=== PATIENT | female | born 1945 | race Two or more races ===

== ENCOUNTER → 2023-06-27 | Outpatient (CLI) | payer MEDICARE ==
[2023-06-27 12:08] LABS: Basophils # (auto) 0 10 ^3/uL (0-0.2); Basophils % (auto) 0.4 % (0.0-2.0); Eosinophils # (auto) 0.1 10 ^3/uL (0-0.8); Eosinophils % (auto) 0.7 % (0.0-7.0); Hemoglobin 14.4 g/dL (12.2-16.2); Lymphocytes # (auto) 2.3 10 ^3/uL (0.4-5.4); Lymphocytes % (auto) 29.8 % (10.0-50.0); Mean Corpuscular Hemoglobin 30.6 pg (28.0-32.0); Mean Corpuscular Volume 95.3 fL (80.0-100.0); Monocytes # (auto) 0.6 10 ^3/uL (0-1.3); Monocytes % (auto) 7.8 % (0.0-12.0); Neutrophils # (auto) 4.6 10 ^3/uL (1.6-8.6); Neutrophils % (auto) 61.3 % (37.0-80.0); Nucleated Red Blood Cells % 0.1 %; Red Blood Cells 4.72 10^6/uL (4.0-5.20); Red Cell Distribution Width 17.9 % (11.8-14.3); White Blood Cell 7.6 10^3/uL (4.4-10.8)
[2023-06-27 12:19] LABS: Alanine Aminotransferase 17 U/L (7-40); Alkaline Phosphatase 87 U/L (46-116); Anion Gap 7 (5-15); Aspartate Aminotransferase 18 U/L (13-40); BUN/Creatinine Ratio 11.1 (10.0-20.0); Blood Urea Nitrogen 9 mg/dL (9-23); Calcium 9.4 mg/dL (8.5-10.1); Carbon Dioxide 27 mmol/L (20-30); Chloride 108 mmol/L (98-107); Glucose 86 mg/dL (74-106); Potassium 3.6 mmol/L (3.5-5.1); Sodium 142 mmol/L (136-145)
[2023-06-27 12:20] LABS: Albumin 4.1 g/dL (3.2-4.8); Bilirubin, Total 0.8 mg/dL (0.2-1.0); Total Protein 6.6 g/dL (5.7-8.2)
[2023-06-27 12:24] LABS: Urine Bacteria FEW /hpf (None Seen); Urine Blood 1+ /uL (Negative); Urine Clarity HAZY (Clear); Urine Color Yellow (Yellow); Urine Mucus FEW (None Seen); Urine Protein, UAD TRACE (Negative); Urine Specific Gravity 1.022 (1.001-1.035); Urine Urobilinogen Normal (Negative); Urine WBC 170 /hpf (0 - 5); Urine pH 5.5 (5.0-8.0)
== END | disposition home or self-care (01) ==
LOC: LAB 11:46
DX: R05.1 Acute cough (principal); N39.0 Urinary tract infection, site not specified
CPT/HCPCS: 36415; 80053; 81001; 85025; 87086

== ENCOUNTER → 2023-06-28 | Outpatient (CLI) | payer MEDICARE, MEDICAID ==
[~2023-06-28] MED LIST: ENOXAPARIN SOD 30 MG/0.3 ML SYRINGE ONE; ENOXAPARIN SOD 30 MG/0.3 ML SYRINGE SC ONE; FUROSEMIDE 40 MG/4 ML VIAL IV ONE; FUROSEMIDE 40 MG/4 ML VIAL ONE; POTASSIUM CHL 10 Meq TABLET PO ONE; POTASSIUM CHL 20 Meq TABLET PO ONE
[2023-06-28 12:00] VITALS: BP 162/88; PULSE 74; RESP 20; O2SAT 99
[2023-06-28 12:30] VITALS: BP 160/100; PULSE 80; RESP 20; O2SAT 99
== END | disposition home or self-care (01) ==
LOC: CHF HDHVI 11:48
PROVIDERS: ATTEND Internal Medicine Cardiovascular Disease
DX: I50.9 Heart failure, unspecified (principal); R60.9 Edema, unspecified
CPT/HCPCS: 96372; 96374; G0463

== ENCOUNTER → 2023-07-10 | Outpatient (CLI) | payer MEDICARE, MEDICAID ==
[2023-07-10 14:21] LABS: Basophils # (auto) 0 10 ^3/uL (0-0.2); Basophils % (auto) 0.4 % (0.0-2.0); Eosinophils # (auto) 0 10 ^3/uL (0-0.8); Eosinophils % (auto) 0.7 % (0.0-7.0); Hematocrit 45.9 % (36.0-46.0); Hemoglobin 14.5 g/dL (12.2-16.2); Lymphocytes % (auto) 27.6 % (10.0-50.0); Mean Corpuscular Hemoglobin 30.6 pg (28.0-32.0); Mean Corpuscular Hgb Conc. 31.7 g/dL (32.0-36.0); Mean Corpuscular Volume 96.6 fL (80.0-100.0); Monocytes # (auto) 0.6 10 ^3/uL (0-1.3); Monocytes % (auto) 7.9 % (0.0-12.0); Neutrophils # (auto) 4.6 10 ^3/uL (1.6-8.6); Neutrophils % (auto) 63.4 % (37.0-80.0); Nucleated Red Blood Cells % 0.2 %; Red Blood Cells 4.75 10^6/uL (4.0-5.20); Red Cell Distribution Width 17.6 % (11.8-14.3); White Blood Cell 7.2 10^3/uL (4.4-10.8)
[2023-07-10 14:42] LABS: Chloride 108 mmol/L (98-107); Potassium 4.2 mmol/L (3.5-5.1); Sodium 142 mmol/L (136-145)
[2023-07-10 14:43] LABS: Anion Gap 6 (5-15); Calcium 9.4 mg/dL (8.5-10.1); Carbon Dioxide 28 mmol/L (20-30)
[2023-07-10 14:48] LABS: BUN/Creatinine Ratio 12.7 (10.0-20.0); Blood Urea Nitrogen 13 mg/dL (9-23); Glucose 156 mg/dL (74-106)
== END | disposition home or self-care (01) ==
LOC: LAB 13:58
PROVIDERS: ATTEND Internal Medicine Cardiovascular Disease
DX: E11.9 Type 2 diabetes mellitus without complications (principal); D64.9 Anemia, unspecified
CPT/HCPCS: 36415; 80048; 83036; 85025

== ENCOUNTER → 2023-07-12 | Outpatient (CLI) | payer MEDICARE, MEDICAID | END | disposition home or self-care (01) | LOC: Rad HDHVI 13:30 | PROVIDERS: ATTEND Internal Medicine Cardiovascular Disease | DX: I08.0 Rheumatic disorders of both mitral and aortic valves (principal); I11.9 Hypertensive heart disease without heart failure; R06.02 Shortness of breath | CPT/HCPCS: 93306 ==

== ENCOUNTER → 2023-09-25 | Outpatient (CLI) | payer MEDICARE, MEDICAID ==
[2023-09-25 12:02] LABS: Creatinine, Urine 211.84 mg/dL (30.0-125.0)
[2023-09-25 12:07] LABS: Alanine Aminotransferase 12 U/L (7-40); Alkaline Phosphatase 134 U/L (46-116); Anion Gap 7 (5-15); BUN/Creatinine Ratio 13.3 (10.0-20.0); Blood Urea Nitrogen 12 mg/dL (9-23); Calcium 9.5 mg/dL (8.5-10.1); Carbon Dioxide 30 mmol/L (20-30); Chloride 105 mmol/L (98-107); Glucose 115 mg/dL (74-106); LDL Cholesterol 90 mg/dL (< 100); Potassium 3.5 mmol/L (3.5-5.1); Sodium 142 mmol/L (136-145); Triglycerides 114 mg/dL (< 150)
[2023-09-25 12:08] LABS: Albumin 4.2 g/dL (3.2-4.8); Aspartate Aminotransferase 11 U/L (13-40); Bilirubin, Direct 0.2 mg/dL (<0.3); Cholesterol 168 mg/dL (< 200); HDL Cholesterol 57 mg/dL (40-59)
[2023-09-25 12:17] LABS: Bilirubin, Total 0.6 mg/dL (0.2-1.0)
[2023-09-25 15:22] LABS: Urine Blood Negative /uL (Negative); Urine Clarity Clear (Clear); Urine Color Yellow (Yellow); Urine Protein, UAD TRACE (Negative); Urine Specific Gravity 1.027 (1.001-1.035); Urine Urobilinogen Normal (Negative); Urine pH 5.5 (5.0-9.0)
== END | disposition home or self-care (01) ==
LOC: LAB 10:42
PROVIDERS: ATTEND Internal Medicine Cardiovascular Disease
DX: I10 Essential (primary) hypertension (principal); E11.40 Type 2 diabetes mellitus with diabetic neuropathy, unspecified; D51.3 Other dietary vitamin B12 deficiency anemia; E55.9 Vitamin D deficiency, unspecified
CPT/HCPCS: 36415; 80048; 80061; 80076; 81003; 82043; 82570; 83036; 84439; 84443

== ENCOUNTER → 2024-01-09 | Outpatient (CLI) | payer MEDICARE, MEDICAID ==
[2024-01-09 11:23] LABS: Basophils # (auto) 0 10 ^3/uL (0-0.2); Basophils % (auto) 0.8 % (0.0-2.0); Eosinophils # (auto) 0.1 10 ^3/uL (0-0.8); Eosinophils % (auto) 1.6 % (0.0-7.0); Hematocrit 44.9 % (36.0-46.0); Hemoglobin 14.8 g/dL (12.2-16.2); Lymphocytes # (auto) 1.3 10 ^3/uL (0.4-5.4); Mean Corpuscular Hemoglobin 32.4 pg (28.0-32.0); Mean Corpuscular Volume 98.2 fL (80.0-100.0); Monocytes # (auto) 0.4 10 ^3/uL (0-1.3); Monocytes % (auto) 9.8 % (0.0-12.0); Neutrophils # (auto) 2.2 10 ^3/uL (1.6-8.6); Neutrophils % (auto) 54.8 % (37.0-80.0); Nucleated Red Blood Cells % 0.1 %; Red Blood Cells 4.57 10^6/uL (4.0-5.20); Red Cell Distribution Width 15.6 % (11.8-14.3); White Blood Cell 4.1 10^3/uL (4.4-10.8)
[2024-01-09 11:50] LABS: Urine Bacteria FEW /hpf (None Seen); Urine Blood TRACE /uL (Negative); Urine Clarity Turbid (Clear); Urine Color Yellow (Yellow); Urine Mucus FEW (None Seen); Urine Protein, UAD TRACE (Negative); Urine Specific Gravity 1.028 (1.001-1.035); Urine Urobilinogen Normal (Negative); Urine WBC 26 /hpf (0 - 5); Urine pH 5.5 (5.0-9.0)
[2024-01-09 12:23] LABS: Alkaline Phosphatase 148 U/L (46-116); Anion Gap 5 (5-15); Aspartate Aminotransferase 14 U/L (13-40); BUN/Creatinine Ratio 9.1 (10.0-20.0); Bilirubin, Direct 0.1 mg/dL (<0.3); Blood Urea Nitrogen 8 mg/dL (9-23); Calcium 9.8 mg/dL (8.7-10.4); Carbon Dioxide 29 mmol/L (20-30); Chloride 110 mmol/L (98-107); Cholesterol 164 mg/dL (< 200); Glucose 104 mg/dL (74-106); HDL Cholesterol 47 mg/dL (40-59); LDL Cholesterol 91 mg/dL (< 100); Potassium 4.7 mmol/L (3.5-5.1); Sodium 144 mmol/L (136-145); Triglycerides 119 mg/dL (< 150)
[2024-01-09 12:24] LABS: Bilirubin, Total 0.5 mg/dL (0.2-1.0); Total Protein 6.7 g/dL (5.7-8.2)
[2024-01-09 12:28] LABS: Alanine Aminotransferase < 9 U/L (7-40)
== END | disposition home or self-care (01) ==
LOC: LAB 10:54
PROVIDERS: ATTEND Internal Medicine Cardiovascular Disease
DX: I10 Essential (primary) hypertension (principal); E11.9 Type 2 diabetes mellitus without complications; D51.3 Other dietary vitamin B12 deficiency anemia; E55.9 Vitamin D deficiency, unspecified; R00.2 Palpitations; R53.1 Weakness
CPT/HCPCS: 36415; 80048; 80061; 80076; 81001; 83036; 84443; 85025

== ENCOUNTER → 2024-02-22 | Outpatient (CLI) | payer MEDICARE, MEDICAID ==
[~2024-02-22] MED LIST changes: +ATOR-507 PO; +CARV25TA55 PO; +CLOP75TA28 PO; +EMPA1TAB3 PO; -ENOXAPARIN SOD 30 MG/0.3 ML SYRINGE ONE; -ENOXAPARIN SOD 30 MG/0.3 ML SYRINGE SC ONE; +FURO40TA4 PO; -FUROSEMIDE 40 MG/4 ML VIAL IV ONE; -FUROSEMIDE 40 MG/4 ML VIAL ONE; +GABA-1250 PO; +HYDR-4795 PO; +INSU1INJ19 SC; +METF-370 PO; +METO25TA93 PO; +NIFE1TAB30 PO; +PANT40TA2 PO; +POTA-220 PO; -POTASSIUM CHL 10 Meq TABLET PO ONE; -POTASSIUM CHL 20 Meq TABLET PO ONE; +PRED20TA2 PO; +PRIM50TA5 PO; +TRAZ-227 PO
== END | disposition home or self-care (01) ==
LOC: Rad HDHVI 10:40
PROVIDERS: ATTEND Internal Medicine Cardiovascular Disease
DX: R51.9 Headache, unspecified (principal)
CPT/HCPCS: 70450

== ENCOUNTER → 2024-03-05 | Outpatient (CLI) | payer MEDICARE, MEDICAID | END | disposition home or self-care (01) | LOC: Rad HDHVI 12:50 | PROVIDERS: ATTEND Internal Medicine Cardiovascular Disease | DX: I08.0 Rheumatic disorders of both mitral and aortic valves (principal); I10 Essential (primary) hypertension; R42 Dizziness and giddiness | CPT/HCPCS: 93306 ==

== ENCOUNTER 2024-03-11 13:29 | Inpatient (IN) | payer MEDICARE, MEDICAID ==
[~2024-03-11] VITALS: Ht 165.1 cm; Wt 82.1 kg
[2024-03-11] MEDS: SODIUM CHLORIDE 0.9% 500 ML IVB ONE (14:45)
[2024-03-11 14:59] LABS: Urine Bacteria None Seen /hpf (None Seen)
[2024-03-11 15:23] LABS: Urine Blood Negative /uL (Negative); Urine Clarity Clear (Clear); Urine Color Light-Yellow (Yellow); Urine Protein, UAD Negative (Negative); Urine Specific Gravity 1.019 (1.001-1.035); Urine Urobilinogen Normal (Negative); Urine WBC 2 /hpf (0 - 5)
[2024-03-11 15:28] LABS: Basophils # (auto) 0 10 ^3/uL (0-0.2); Basophils % (auto) 0.2 % (0.0-2.0); Eosinophils # (auto) 0 10 ^3/uL (0-0.8); Eosinophils % (auto) 0.2 % (0.0-7.0); Hematocrit 47.4 % (36.0-46.0); Hemoglobin 15.3 g/dL (12.2-16.2); Lymphocytes # (auto) 0.6 10 ^3/uL (0.4-5.4); Lymphocytes % (auto) 3.3 % (10.0-50.0); Mean Corpuscular Hemoglobin 31.7 pg (28.0-32.0); Mean Corpuscular Hgb Conc. 32.3 g/dL (32.0-36.0); Mean Corpuscular Volume 98.2 fL (80.0-100.0); Monocytes # (auto) 0.9 10 ^3/uL (0-1.3); Monocytes % (auto) 4.9 % (0.0-12.0); Neutrophils # (auto) 17.3 10 ^3/uL (1.6-8.6); Neutrophils % (auto) 91.4 % (37.0-80.0); Nucleated Red Blood Cells % 0.1 %; Platelet Count (auto) 274 10^3/uL (140-450); Red Blood Cells 4.83 10^6/uL (4.0-5.20); Red Cell Distribution Width 15.8 % (11.8-14.3); White Blood Cell 18.9 10^3/uL (4.4-10.8)
[2024-03-11 16:09] LABS: INR 1.03 (0.9-1.15); Partial Thromboplastin Time 32.1 SEC (24.5-34.5); Prothrombin Time 10.9 sec (9.3-11.8)
[2024-03-11] MEDS: MECLIZINE HCL 25 MG TAB PO ONE (16:10)
[2024-03-11] MEDS: ACETAMINOPHEN/CODEINE#3 (300/30mg) TAB PO ONE (16:11)
[2024-03-11] MEDS: SODIUM CHLORIDE 0.9% 1,000 ML IV ONE (16:12)
[2024-03-11 16:13] VITALS: PULSE 74; RESP 16; O2SAT 95
[2024-03-11 16:33] LABS: Alanine Aminotransferase 11 U/L (7-40); Albumin 4.1 g/dL (3.2-4.8); Alkaline Phosphatase 144 U/L (46-116); Anion Gap 10 (5-15); Aspartate Aminotransferase 13 U/L (13-40); Blood Urea Nitrogen 12 mg/dL (9-23); Calcium 9.4 mg/dL (8.7-10.4); Carbon Dioxide 22 mmol/L (20-31); Chloride 112 mmol/L (98-107); Glucose 158 mg/dL (74-106); Lipase 22 U/L (12-53); Magnesium 1.8 mg/dL (1.6-2.6); Sodium 144 mmol/L (136-145)
[2024-03-11 16:34] LABS: Bilirubin, Total 0.5 mg/dL (0.2-1.0); Total Protein 6.7 g/dL (5.7-8.2)
[2024-03-11] MEDS ORDERED: ACETAMINOPHEN 325 MG TAB PO PRN (17:30)
[2024-03-11] MEDS ORDERED: DEXTROSE (50%) 50ML SYRG IV PRN (17:30)
[2024-03-11] MEDS ORDERED: MECLIZINE HCL 25 MG TAB PO PRN (17:30)
[2024-03-11] MEDS ORDERED: ONDANSETRON HCL 4 MG/2 ML VIAL IV PRN (17:30)
[2024-03-11] MEDS ORDERED: MORPHINE SULFATE INJ 2 MG/ml SYRG IV PRN (18:15)
[2024-03-11] MEDS: GABAPENTIN 300 MG CAP PO SCH (22:26)
[2024-03-11] MEDS: CARVEDILOL 12.5 MG TAB PO SCH (22:26)
[2024-03-11] MEDS: ATORVASTATIN 20 MG TAB PO SCH (22:27)
[2024-03-11] MEDS: ACCU-CHEK COMFORT CURVE STRIP VI SCH (22:27)
[2024-03-11] MEDS: FAMOTIDINE (10MG/ML) 2ML VL IV SCH (22:27)
[2024-03-11] MEDS: InsuLIN REG 1unit/0.01ml Soln (100units/ml) SC SCH (22:39)
[2024-03-12] VITALS (8 sets, daily range): BP systolic 121–143; BP diastolic 52–80; PULSE 56–68; RESP 16–20; TEMP 97.7–98.6; O2SAT 90–95
[2024-03-12] MEDS: HYDROcodone-ACET 5/325MG TAB PO PRN (00:18)
[2024-03-12 06:23] LABS: Basophils # (auto) 0 10 ^3/uL (0-0.2); Basophils % (auto) 0.2 % (0.0-2.0); Eosinophils # (auto) 0.2 10 ^3/uL (0-0.8); Eosinophils % (auto) 1.5 % (0.0-7.0); Hematocrit 43.6 % (36.0-46.0); Hemoglobin 14.3 g/dL (12.2-16.2); Lymphocytes # (auto) 2.2 10 ^3/uL (0.4-5.4); Lymphocytes % (auto) 14.8 % (10.0-50.0); Mean Corpuscular Hemoglobin 32.3 pg (28.0-32.0); Mean Corpuscular Hgb Conc. 32.9 g/dL (32.0-36.0); Monocytes # (auto) 0.8 10 ^3/uL (0-1.3); Monocytes % (auto) 5.6 % (0.0-12.0); Neutrophils # (auto) 11.8 10 ^3/uL (1.6-8.6); Neutrophils % (auto) 77.9 % (37.0-80.0); Nucleated Red Blood Cells % 0.1 %; Platelet Count (auto) 241 10^3/uL (140-450); Red Blood Cells 4.44 10^6/uL (4.0-5.20); Red Cell Distribution Width 15.8 % (11.8-14.3); White Blood Cell 15.1 10^3/uL (4.4-10.8)
[2024-03-12 06:36] LABS: Albumin 3.8 g/dL (3.2-4.8); Alkaline Phosphatase 114 U/L (46-116); Anion Gap 8 (5-15); Aspartate Aminotransferase 8 U/L (13-40); BUN/Creatinine Ratio 10.6 (10.0-20.0); Bilirubin, Total 0.5 mg/dL (0.2-1.0); Blood Urea Nitrogen 10 mg/dL (9-23); Calcium 9.4 mg/dL (8.7-10.4); Carbon Dioxide 26 mmol/L (20-31); Chloride 111 mmol/L (98-107); Glucose 97 mg/dL (74-106); Potassium 3.6 mmol/L (3.5-5.1); Sodium 145 mmol/L (136-145); Total Protein 6.4 g/dL (5.7-8.2)
[2024-03-12 06:45] LABS: Alanine Aminotransferase < 9 U/L (7-40)
[2024-03-12] MEDS: CLOPIDOGREL BISULFATE 75 MG TAB PO SCH (08:30)
[2024-03-12] MEDS: traZODone HCL 50 MG TAB PO SCH (21:44)
[2024-03-13] VITALS (8 sets, daily range): BP systolic 118–156; BP diastolic 57–73; PULSE 49–62; RESP 15–19; TEMP 97.7–98.9; O2SAT 90–96
[2024-03-13] MEDS: levoFLOXacin 500MG 100 ML IV SCH (10:37)
[2024-03-13 11:32] LABS: Basophils # (auto) 0 10 ^3/uL (0-0.2); Basophils % (auto) 0.5 % (0.0-2.0); Eosinophils # (auto) 0.2 10 ^3/uL (0-0.8); Eosinophils % (auto) 3.6 % (0.0-7.0); Hematocrit 40.3 % (36.0-46.0); Lymphocytes # (auto) 1.5 10 ^3/uL (0.4-5.4); Lymphocytes % (auto) 25.3 % (10.0-50.0); Mean Corpuscular Hemoglobin 31.5 pg (28.0-32.0); Mean Corpuscular Hgb Conc. 32.2 g/dL (32.0-36.0); Mean Corpuscular Volume 97.6 fL (80.0-100.0); Monocytes # (auto) 0.6 10 ^3/uL (0-1.3); Monocytes % (auto) 9.4 % (0.0-12.0); Neutrophils # (auto) 3.7 10 ^3/uL (1.6-8.6); Neutrophils % (auto) 61.2 % (37.0-80.0); Nucleated Red Blood Cells % 0.6 %; Platelet Count (auto) 181 10^3/uL (140-450); Red Blood Cells 4.13 10^6/uL (4.0-5.20); Red Cell Distribution Width 15.8 % (11.8-14.3)
[2024-03-13 15:00] LABS: Chloride 107 mmol/L (98-107); Potassium 3.9 mmol/L (3.5-5.1); Sodium 142 mmol/L (136-145)
[2024-03-13 15:01] LABS: Anion Gap 6 (5-15); Calcium 9.5 mg/dL (8.7-10.4); Carbon Dioxide 29 mmol/L (20-31)
[2024-03-13 15:06] LABS: BUN/Creatinine Ratio 12.8 (10.0-20.0); Blood Urea Nitrogen 12 mg/dL (9-23); Glucose 150 mg/dL (74-106)
[2024-03-13] MEDS: VANCOMYCIN 1GM/200ML PREMIX 250 ML IV ONE ×2 (15:17→15:26)
[2024-03-14] VITALS (7 sets, daily range): BP systolic 106–151; BP diastolic 30–79; PULSE 49–89; RESP 15–19; TEMP 97.8–98.5; O2SAT 91–97
[2024-03-14] MEDS: DOCUSATE SOD 100 MG CAP PO PRN (09:52)
[2024-03-15] VITALS (7 sets, daily range): BP systolic 128–160; BP diastolic 63–83; PULSE 59–80; RESP 16–18; TEMP 97.6–98.5; O2SAT 92–98
[2024-03-15] MEDS: hydrALAZINE HCL 20 MG/ML VL IV PRN (09:59)
[2024-03-16] VITALS (8 sets, daily range): BP systolic 113–158; BP diastolic 47–71; PULSE 54–95; RESP 15–18; TEMP 97.6–98.2; O2SAT 93–99
[2024-03-16] MEDS: NITROGLYCERIN 0.4 MG SL TAB SL PRN (00:59)
[2024-03-17] VITALS (11 sets, daily range): BP systolic 136–156; BP diastolic 57–89; PULSE 55–86; RESP 17–20; TEMP 97.5–98.7; O2SAT 94–98
[2024-03-18 01:00] VITALS: BP 145/60; PULSE 67; RESP 17; TEMP 97.6; O2SAT 97
[2024-03-18 05:00] VITALS: BP 111/68; PULSE 68; RESP 20; TEMP 97.5; O2SAT 94
[2024-03-18 07:41] VITALS: PULSE 76
[2024-03-18 08:10] VITALS: BP 138/69; PULSE 67; RESP 18; TEMP 97.4; O2SAT 94
[2024-03-18 12:53] LABS: Hepatitis B Surface Antigen Negative (Negative)
[2024-03-18 13:14] LABS: Hepatitis C Antibody Negative (Negative)
[2024-03-18 14:44] VITALS: BP 157/69; PULSE 60; RESP 18; TEMP 98.9; O2SAT 98
[2024-03-18 15:03] VITALS: BP 146/76; PULSE 71; RESP 16
== END 2024-03-18 15:14 | disposition home or self-care (01) | DRG 310 ==
LOC: ER 13:29 → EDBD 13:29 → TELE 18:14 → TELE-WESTW 18:14
PROVIDERS: ADMIT Internal Medicine Geriatric Medicine; ATTEND Internal Medicine Cardiovascular Disease
DX: R00.1 Bradycardia, unspecified (principal); I25.10 Atherosclerotic heart disease of native coronary artery without angina pectoris; D72.829 Elevated white blood cell count, unspecified; E11.9 Type 2 diabetes mellitus without complications; E78.5 Hyperlipidemia, unspecified; I11.0 Hypertensive heart disease with heart failure; I50.9 Heart failure, unspecified; J44.9 Chronic obstructive pulmonary disease, unspecified; Z86.73 Personal history of transient ischemic attack (TIA), and cerebral infarction without residual deficits; Z98.61 Coronary angioplasty status; Z88.6 Allergy status to analgesic agent; Z88.0 Allergy status to penicillin
CPT/HCPCS: 36415; 70450; 71045; 71046; 80048; 80053; 81001; 82962; 83036; 83690; 83735; 84484; 85025; 85610; 85730; 86803; 87040; 87077; 87340; 93005; 93886; G0378; J1815; J1956; J3490

== ENCOUNTER → 2024-03-20 | Outpatient (CLI) | payer MEDICARE, MEDICAID ==
[~2024-03-20] MED LIST changes: -PRED20TA2 PO; -PRIM50TA5 PO
== END | disposition home or self-care (01) ==
LOC: Rad HDHVI 15:17
PROVIDERS: ATTEND Internal Medicine Cardiovascular Disease
DX: R06.02 Shortness of breath (principal); I51.7 Cardiomegaly
CPT/HCPCS: 71046

== ENCOUNTER → 2024-03-22 | Outpatient (CLI) | payer MEDICARE, MEDICAID ==
[2024-03-22 13:34] LABS: Basophils # (auto) 0 10 ^3/uL (0-0.2); Basophils % (auto) 0.8 % (0.0-2.0); Eosinophils # (auto) 0.1 10 ^3/uL (0-0.8); Eosinophils % (auto) 2.1 % (0.0-7.0); Hemoglobin 14.6 g/dL (12.2-16.2); Lymphocytes # (auto) 1.5 10 ^3/uL (0.4-5.4); Lymphocytes % (auto) 30.4 % (10.0-50.0); Mean Corpuscular Hemoglobin 31.6 pg (28.0-32.0); Mean Corpuscular Hgb Conc. 32.4 g/dL (32.0-36.0); Mean Corpuscular Volume 97.5 fL (80.0-100.0); Monocytes # (auto) 0.3 10 ^3/uL (0-1.3); Neutrophils % (auto) 59.7 % (37.0-80.0); Nucleated Red Blood Cells % 0.2 %; Platelet Count (auto) 261 10^3/uL (140-450); Red Blood Cells 4.61 10^6/uL (4.0-5.20); White Blood Cell 4.9 10^3/uL (4.4-10.8)
[2024-03-22 13:58] LABS: Chloride 111 mmol/L (98-107); Potassium 4.1 mmol/L (3.5-5.1); Sodium 144 mmol/L (136-145)
[2024-03-22 13:59] LABS: Anion Gap 7 (5-15); Carbon Dioxide 26 mmol/L (20-31)
[2024-03-22 14:00] LABS: Calcium 9.3 mg/dL (8.7-10.4)
[2024-03-22 14:04] LABS: BUN/Creatinine Ratio 17.8 (10.0-20.0); Blood Urea Nitrogen 16 mg/dL (9-23); Glucose 137 mg/dL (74-106)
== END | disposition home or self-care (01) ==
LOC: LAB 13:15
PROVIDERS: ATTEND Internal Medicine Cardiovascular Disease
DX: I10 Essential (primary) hypertension (principal); D64.9 Anemia, unspecified
CPT/HCPCS: 36415; 80048; 85025

== ENCOUNTER → 2024-06-11 | Outpatient (CLI) | payer MEDICARE, MEDICAID ==
[2024-06-11 10:10] LABS: Urine Bacteria None Seen /hpf (None Seen)
[2024-06-11 10:32] LABS: Basophils # (auto) 0 10 ^3/uL (0-0.2); Basophils % (auto) 0.4 % (0.0-2.0); Eosinophils # (auto) 0 10 ^3/uL (0-0.8); Eosinophils % (auto) 0.3 % (0.0-7.0); Hematocrit 47.8 % (36.0-46.0); Hemoglobin 15.6 g/dL (12.2-16.2); Lymphocytes % (auto) 23.5 % (10.0-50.0); Mean Corpuscular Hgb Conc. 32.7 g/dL (32.0-36.0); Mean Corpuscular Volume 97.8 fL (80.0-100.0); Monocytes # (auto) 0.5 10 ^3/uL (0-1.3); Neutrophils % (auto) 69.8 % (37.0-80.0); Nucleated Red Blood Cells % 0.1 %; Platelet Count (auto) 239 10^3/uL (140-450); Red Blood Cells 4.89 10^6/uL (4.0-5.20); Red Cell Distribution Width 15.9 % (11.8-14.3); White Blood Cell 8.6 10^3/uL (4.4-10.8)
[2024-06-11 10:52] LABS: Creatinine, Urine 153.3 mg/dL (30.0-125.0)
[2024-06-11 10:58] LABS: Alanine Aminotransferase 12 U/L (7-40); Albumin 4.2 g/dL (3.2-4.8); Anion Gap 7 (5-15); BUN/Creatinine Ratio 16.5 (10.0-20.0); Bilirubin, Total 0.6 mg/dL (0.2-1.0); Blood Urea Nitrogen 15 mg/dL (9-23); Calcium 10.2 mg/dL (8.7-10.4); Carbon Dioxide 30 mmol/L (20-31); Chloride 106 mmol/L (98-107); Glucose 101 mg/dL (74-106); Potassium 3.9 mmol/L (3.5-5.1); Sodium 143 mmol/L (136-145); Total Protein 7.1 g/dL (5.7-8.2); Triglycerides 119 mg/dL (< 150)
[2024-06-11 11:00] LABS: Alkaline Phosphatase 165 U/L (46-116); Aspartate Aminotransferase < 8 U/L (13-40); Cholesterol 243 mg/dL (< 200); HDL Cholesterol 76 mg/dL (40-59); LDL Cholesterol 157 mg/dL (< 100)
[2024-06-11 12:33] LABS: Urine Blood Negative /uL (Negative); Urine Clarity Clear (Clear); Urine Color Yellow (Yellow); Urine Mucus FEW (None Seen); Urine Protein, UAD Negative (Negative); Urine Specific Gravity 1.033 (1.001-1.035); Urine Squamous Epithelial Cell FEW /hpf (<5); Urine Urobilinogen Normal (Negative); Urine WBC 4 /hpf (0 - 5); Urine pH 5.5 (5.0-9.0)
== END | disposition home or self-care (01) ==
LOC: LAB 09:47
DX: N39.0 Urinary tract infection, site not specified (principal); E11.65 Type 2 diabetes mellitus with hyperglycemia; I10 Essential (primary) hypertension; B27.90 Infectious mononucleosis, unspecified without complication; E03.9 Hypothyroidism, unspecified; E78.5 Hyperlipidemia, unspecified; R82.79 Other abnormal findings on microbiological examination of urine; Z20.828 Contact with and (suspected) exposure to other viral communicable diseases
CPT/HCPCS: 36415; 80053; 80061; 81001; 82043; 82570; 83036; 84443; 85025; 87086

== ENCOUNTER 2024-07-25 08:06 | Emergency (ER) | payer OTHER, MEDICAID ==
[~2024-07-25] VITALS: Ht 165.1 cm; Wt 82.6 kg
[2024-07-25 08:49] VITALS: BP 131/71; PULSE 64; RESP 18; TEMP 98; O2SAT 96
--- NOTE | 2024-07-25 09:07 | ED.PDOC ---
Musculoskeletal HPI Comments A 79 YEAR OLD FEMALE PRESENTS TO THE ED WITH CHIEF COMPLAINT OF TOE PAIN. PATIENT REPORTS THAT SHE HAS BEEN EXPERIENCING A LEFT GREAT TOE INGROWN TOE NAIL THAT SHE HAS ATTEMPTED TO TAKE OUT ON HER OWN. PATIENT RELAYS THAT SHE WAS UNSUCCESSFUL AND NOW HAS 9/10 PAIN TO THE TOE. PATIENT DENIES ANY DISCHARGE, BLEEDING, NUMBNESS, OR WEAKNESS AT THIS TIME. NO OTHER SYMPTOMS REPORTED AT THIS TIME OF CARE. Chief Complaint: Lower Extremity Time Seen by MD: 09:05 Primary Care Provider: LACHELLE Reviewed Notes: Nurses Notes, Medications, Allergies Allergies: Coded Allergies: Aspirin (Verified Allergy, Unknown, 02/12/22) Penicillins (Verified Allergy, Unknown, 02/12/22) Home Meds Active Scripts Cephalexin Monohydrate (Cephalexin) 500 Mg Cap, 1 CAP PO QID, #40 CAP Prov:MARISA MARRERO 07/25/24 Reported Medications Gabapentin (Gabapentin) 300 Mg Cap, 1 CAP PO TID for 60 Days, #180 02/15/24 Metformin Hydrochloride (Metformin Hcl) 500 Mg Tab, 1 TAB PO BID for 90 Days, #180 02/15/24 Insulin Glargine (Basaglar Kwikpen) 100 Unit/Ml Inj, 15 UNIT SC DAILY for 70 Days, #12 02/15/24 Trazodone Hcl (Trazodone Hcl) 50 Mg Tab, 1 TAB PO DAILY for 30 Days, #30 02/15/24 Hydrocodone-Acetaminophen (Hydrocodone Bitartrate/AC 7.5-325 mg) 1 Tab Tab, 1 TAB PO Q8HR for 30 Days, #90 02/15/24 Furosemide (Furosemide) 40 Mg Tab, 1 TAB PO DAILY for 90 Days, #90 02/15/24 Metoprolol Succinate (Metoprolol Succinate Er) 25 Mg Tab, 1 TAB PO DAILY for 60 Days, #30 02/15/24 Atorvastatin Calcium (Lipitor) 40 Mg Tab, 1 TAB PO DAILY, #30 TAB 5 Refills 02/14/24 Empagliflozin (Jardiance) 25 Mg Tab, 25 MG PO DAILY, TAB 02/14/24 Pantoprazole Sodium Sesquihydr (Protonix) 40 Mg Tab, 40 MG PO DAILY, #30 TAB 02/14/24 Potassium Chloride (Klor-Con M20) 20 Meq Tab, 20 MEQ PO DAILY, TAB 02/14/24 Carvedilol (Carvedilol) 25 Mg Tab, 25 MG PO BID, TAB 02/14/24 Clopidogrel Bisulfate (Plavix) 75 Mg Tab, 75 MG PO DAILY, TAB 02/14/24 Nifedipine (Nifedipine Er) 60 Mg Tab, 60 MG PO DAILY, TAB 02/14/24 Information Source: Patient, Relative Mode of Arrival: Ambulatory Location: Left Extremity Location: Great Toe Timing: Days Prehospital treatment: None Severity: Moderate Able to Move Extremity: Yes Bear Weight: Fully Pain: Mild Hand Dominance: Right Onset of Symptoms: Spontaneous Symptoms: Pain, Erythema DVT Risk Factors: NONE Last Tetanus: UTD Associated signs and symptoms: None Past Medical History PAST MEDICAL HISTORY: Arthritis, TIA Surgical History: 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 History: Denies all ADJUNCT PSYCHOLOGY PROFESSOR Hx Family History Family History: Reviewed,noncontributory to illness Social History Smoker: Non-Smoker Alcohol: Denies ETOH Use Drugs: Denies Drug Use Lives In: Home Constitutional: denies: chills, diaphoresis, fatigue, fever, malaise, sweats, weakness, others EENTM: denies: blurred vision, double vision, ear bleeding, ear discharge, ear drainage, ear pain, ear ringing, eye pain, eye redness, hearing loss, mouth pain, mouth swelling, nasal discharge, nose bleeding, nose congestion, nose pain, photophobia, tearing, throat pain, throat swelling, voice changes, others Respiratory: denies: cough, hemoptysis, orthopnea, SOB at rest, shortness of breath, SOB with excertion, stridor, wheezing, others Cardiovascular: denies: chest pain, dizzy spells, diaphoresis, Dyspnea on exertion, edema, irregular heart beat, left arm pain, lightheadedness, palpitations, PND, syncope, others Gastrointestinal: denies: abdomen distended, abdominal pain, blood streaked bowels, constipated, diarrhea, dysphagia, difficulty swallowing, hematemesis, melena, nausea, poor appetite, poor fluid intake, rectal bleeding, rectal pain, vomiting, others Genitourinary: denies: abnormal vagina bleeding, burning, dyspareunia, dysuria, flank pain, frequency, hematuria, incontinence, pain, , vagina discharge, urgency, others Neurological: denies: dizziness, fainting, headache, left sided numbness, left sided weakness, numbness, paresthesia, pre-existing deficit, right sided n umbness, right sided weakness, seizure, speech problems, tingling, tremors, weakness, others Musculoskeletal: reports: joint pain; denies: back pain, gout, joint swelling, muscle pain, muscle stiffness, neck pain, others Integumetry: reports: others (INGROWN LEFT GREAT TOE NAIL); denies: bruises, change in color, change in hair/nails, dryness, laceration, lesions, lumps, rash, wounds Allergic/Immunocompromised: denies: Difficulty Healing, Frequent Infections, Hives, Itching, others Hematologic/Lymphatic: denies: anemia, blood clots, easy bleeding, easy bruising, swollen glands, others Endocrine: denies: excessive hunger, excessive sweating, excessive thirst, excessive urination, flushing, intolerance to cold, intolerance to heat, unex plained weight gain, unexplained weight loss, others Psychiatric: denies: anxiety, bipolar disorder, depression, hopeless, panic disorder, schizophrenia, sleepless, suicidal, others All Other Systems: Reviewed and Negative Physical Exam General Appearance: No Apparent Distress, Normal HEENT: Normal ENT Inspection, PERRL/EOMI Neck: Full Range of Motion, Non-Tender, Normal, Normal Inspection Respiratory: Chest Non-Tender, Lungs Clear, No Accessory Muscle Use, No Respiratory Distress, Normal Breath Sounds Cardiovascular: No Edema, No JVD, No Murmur, No Gallop, Normal Peripheral Pulses, Regular Rate/Rhythm Breast Exam: Deferred Gastrointestinal: No Organomegaly, Non Tender, No Pulsatile Mass, Normal Bowel Sounds, Soft Genitalia: Deferred Pelvic: Deferred Rectal: Deferred Extremities: No calf tenderness, Normal capillary refill, Normal range of mo tion, No pedal edema, Tender (WITH MILD REDNESS AND SWELLING ON LEFT GREAT TOE REGION, NO BONY TENDERNESS AND DEFORMITY. ) Musculoskeletal : Apperance: Normal Neurologic: Alert, front desk worker II-XII nml as Tested, No Motor Deficits, Normal Affect, Normal Mood, No Sensory Deficits Cerebellar Function: Normal Reflexes: Normal Skin: Dry, Normal Color, Warm, Other (LOCALIZED REDNESS, SWELLING AND TENDERNESS ON LEFT GREAT TOE, INGROWN TOENAIL, NO OPEN WOUND SEEN. ) Peripheral Pulses: 2+ carotid (R), 2+ carotid (L), 2+ femoral (L), 2+ dorsalis pedis (R) Lymphatic: No Adenopathy Was a procedure done? Was a procedure done?: No Differential Diagnosis EXT Differential Diagnosis: Contusion, Strain, Bursitis, Other (INGROWN TOENAIL OF LEFT GREAT TOE. ) X-Ray, Labs, Meds, VS Vital Signs Date Time Temp Pulse Resp B/P (MAP) Pulse Ox O2 Delivery O2 Flow Rate FiO2 07/25/24 08:49 98.0 64 18 131/71 (91) 96 98.0 07/25/24 08:49 64 18 96 Room Air 07/25/24 08:28 98.0 64 18 131/71 (91) 96 X-Ray, Labs, Meds, VS Comment EXTERNAL MEDICAL RECORDS REVIEWED: 03/11/24 FOR DIZZINESS INDEPENDENT HISTORIANS: [NONE] SOCIAL DETERMINANTS OF HEALTH: [NONE] LABS ORDERED: NONE REVIEWED AND INTERPRETED RESULTS: NONE IMAGING ORDERED: NONE TREATMENTS ORDERED: NONE PROCEDURES PERFORMED: NONE CRITICAL CARE TIME: NONE I HAVE DISCUSSED THE PATIENT WITH THE ATTENDING PHYSICIAN DR. RITTER AND HE AGREES WITH THE PATIENT'S PLAN OF CARE AND DISPOSITION. BASED ON HISTORY OF PRESENT ILLNESS, AND PHYSICAL EXAM, PATIENT WILL BE DISCHARGED HOME. DISCUSSED PLAN FOR DISCHARGE HOME WITH RX. MEDICATION WARNINGS GIVEN. SHARED DECISION MAKING: DISCUSSED WITH PATIENT THAT THEIR WORKUP WAS NORMAL. PATIENT INSTRUCTED TO FOLLOW UP WITH PRIMARY CARE PROVIDER IN 1-2 DAYS FOR RE- EVALUATION OF SYMPTOMS. PATIENT VERBALIZES UNDERSTANDING TO RETURN TO ED FOR NEW OR WORSENING SYMPTOMS OR IF FOLLOW UP WITH PCP CANNOT BE OBTAINED. PATIENT FEELS COMFORTABLE GOING HOME AT THIS TIME. ALL QUESTIONS ADDRESSED AT TIME OF DISCHARGE. Time of 1ST Reevaluation: 09:30 Reevaluation 1ST: Improved Patient Education/Counseling: Diagnosis, Treatment, Need For Follow Up Family Education/Counseling: Diagnosis, Treatment, No Family Present Medical Screening: No EMC Exist At This Time Departure 1 Departure Time of Disposition: 09:30 Impression: Primary Impression: Ingrown left greater toenail Disposition: 01 HOME / SELF CARE / HOMELESS Condition: Stable Additional Instructions: FOLLOW-UP WITH PCP IN 1 TO 2 DAYS. TAKE MEDICATIONS PRESCRIBED. RETURN TO ED FOR ANY NEW OR WORSENING SYMPTOMS. e-Prescriptions Cephalexin Monohydrate (Cephalexin) 500 Mg Cap 1 CAP PO QID, #40 CAP Prov: MARISA MARRERO 07/25/24 Discharged With: Self Critical Care Note Critical Care Time?: No Stability Stability form required: No Heart Score Heart Score: Heart Score Response (Comments) Value History N/A 0 EKG N/A 0 Age N/A 0 Risk Factors N/A 0 Troponin N/A 0 Total 0 I personally scribed for MARISA MARRERO ([email or web address]) on 07/25/24 at 09:07. Electronically submitted by Harvey Hewitt ([email or web address]). MARISA MARRERO Jul 25, 2024 09:07
[2024-07-25] MEDS ORDERED: CEPH500C PO (09:12)
== END 2024-07-25 09:30 | disposition home or self-care (01) ==
LOC: ER 08:06
DX: L60.0 Ingrowing nail (principal); Z86.73 Personal history of transient ischemic attack (TIA), and cerebral infarction without residual deficits; Z79.02 Long term (current) use of antithrombotics/antiplatelets; Z79.84 Long term (current) use of oral hypoglycemic drugs; Z79.899 Other long term (current) drug therapy; Z88.0 Allergy status to penicillin; Z88.6 Allergy status to analgesic agent

== ENCOUNTER 2024-08-06 08:38 | Emergency (ER) | payer OTHER, MEDICAID ==
[~2024-08-06] VITALS: Ht 162.6 cm; Wt 83.5 kg
[~2024-08-06 08:38] MED LIST changes: +CEPH500C PO
[2024-08-06 09:44] VITALS: BP 141/74; TEMP 98
[2024-08-06 10:25] VITALS: PULSE 67; RESP 18; O2SAT 96
--- NOTE | 2024-08-06 10:29 | DVH ---
CLINICAL INDICATION: great toe pain TECHNIQUE: 3 radiographic views of the left foot were obtained. Comparison: None FINDINGS/IMPRESSION: There is no evidence of acute fracture or dislocation. The visualized joint space is well maintained. The alignment is anatomical. There is no radiopaque foreign body.
[2024-08-06] MEDS ORDERED: ACET500T58 PO (10:46)
[2024-08-06] MEDS ORDERED: CLIN1CAP70 PO (10:46)
[2024-08-06] MEDS ORDERED: IBUP1TAB4 PO (10:46)
--- NOTE | 2024-08-06 10:46 | ED.PDOC ---
Musculoskeletal HPI Comments This is a 79-year-old female with a history of diabetes that presents with a chief complaint of an ingrown toenail to the left foot. Patient was seen July 25 for the same complaint and was discharged with the Keflex as minimal improvement. Patient reports she has a podiatry appointment scheduled for August 23 but is worried about worsening symptoms Able to ambulate without assistive devices. Denies any drainage from the aff ected side. Denies fevers chills nausea vomiting diarrhea Chief Complaint: Lower Extremity Time Seen by MD: 09:26 Primary Care Provider: LACHELLE Reviewed Notes: Nurses Notes, Medications, Allergies Allergies: Coded Allergies: Aspirin (Verified Allergy, Unknown, 02/12/22) Penicillins (Verified Allergy, Unknown, 02/12/22) Home Meds Active Scripts Clindamycin Hcl (Clindamycin Hcl) 300 Mg Cap, 1 CAP PO TID for 7 Days, #21 CAP 0 Refills Prov:SILVINO DE LEÓN LOAN DOCUMENTATION SPECIALIST 08/06/24 Ibuprofen Micronized (Ibuprofen) 400 Mg Tab, 400 MG PO Q8HP PRN for 10 Days, #30 TAB 0 Refills Prov:SILVINO DE LEÓN LOAN DOCUMENTATION SPECIALIST 08/06/24 Acetaminophen (Acetaminophen) 500 Mg Tab, 500 MG PO Q8HP PRN for 10 Days, #30 TAB 0 Refills Prov:SILVINO DE LEÓN LOAN DOCUMENTATION SPECIALIST 08/06/24 Cephalexin Monohydrate (Cephalexin) 500 Mg Cap, 1 CAP PO QID, #40 CAP Prov:MARISA MARRERO 07/25/24 Reported Medications Gabapentin (Gabapentin) 300 Mg Cap, 1 CAP PO TID for 60 Days, #180 02/15/24 Metformin Hydrochloride (Metformin Hcl) 500 Mg Tab, 1 TAB PO BID for 90 Days, #180 02/15/24 Insulin Glargine (Basaglar Kwikpen) 100 Unit/Ml Inj, 15 UNIT SC DAILY for 70 Days, #12 02/15/24 Trazodone Hcl (Trazodone Hcl) 50 Mg Tab, 1 TAB PO DAILY for 30 Days, #30 02/15/24 Hydrocodone-Acetaminophen (Hydrocodone Bitartrate/AC 7.5-325 mg) 1 Tab Tab, 1 TAB PO Q8HR for 30 Days, #90 02/15/24 Furosemide (Furosemide) 40 Mg Tab, 1 TAB PO DAILY for 90 Days, #90 02/15/24 Metoprolol Succinate (Metoprolol Succinate Er) 25 Mg Tab, 1 TAB PO DAILY for 60 Days, #30 02/15/24 Atorvastatin Calcium (Lipitor) 40 Mg Tab, 1 TAB PO DAILY, #30 TAB 5 Refills 02/14/24 Empagliflozin (Jardiance) 25 Mg Tab, 25 MG PO DAILY, TAB 02/14/24 Pantoprazole Sodium Sesquihydr (Protonix) 40 Mg Tab, 40 MG PO DAILY, #30 TAB 02/14/24 Potassium Chloride (Klor-Con M20) 20 Meq Tab, 20 MEQ PO DAILY, TAB 02/14/24 Carvedilol (Carvedilol) 25 Mg Tab, 25 MG PO BID, TAB 02/14/24 Clopidogrel Bisulfate (Plavix) 75 Mg Tab, 75 MG PO DAILY, TAB 02/14/24 Nifedipine (Nifedipine Er) 60 Mg Tab, 60 MG PO DAILY, TAB 02/14/24 Information Source: Patient Mode of Arrival: Ambulatory Past Medical History PAST MEDICAL HISTORY: Arthritis, TIA Surgical History: 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: Denies all QUANTITATIVE ANALYST MARKETING Hx Family History Family History: Reviewed,noncontributory to illness Social History Smoker: Non-Smoker Alcohol: Denies ETOH Use Drugs: Denies Drug Use Lives In: Home All Other Systems: Reviewed and Negative (Per HPI) Physical Exam General Appearance: No Apparent Distress, Normal HEENT: Normal ENT Inspection, Pharynx Normal, TMs Normal Neck: Full Range of Motion, Non-Tender, Normal, Normal Inspection Respiratory: Chest Non-Tender, Lungs Clear, No Accessory Muscle Use, No Respiratory Distress, Normal Breath Sounds Cardiovascular: No Edema, No JVD, No Murmur, No Gallop, Normal Peripheral Pulses, Regular Rate/Rhythm Breast Exam: Deferred Gastrointestinal: No Organomegaly, Non Tender, No Pulsatile Mass, Normal Bowel Sounds, Soft Genitalia: Deferred Pelvic: Deferred Rectal: Deferred Extremities: No calf tenderness, Normal capillary refill, Normal inspection, Normal range of motion, Non-tender, No pedal edema Musculoskeletal : Location: Left Extremity Location: Great Toe (Swelling to the lateral aspect of the nail bed. Tender to palpation. No discharge drainage open wound. No bony tenderness to palpation. Full ROM. 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 Was a procedure done?: No Differential Diagnosis EXT Differential Diagnosis: Other X-Ray, Labs, Meds, VS Vital Signs Date Time Temp Pulse Resp B/P (MAP) Pulse Ox O2 Delivery O2 Flow Rate FiO2 08/06/24 10:25 67 18 96 Room Air 08/06/24 09:44 98.0 57 20 141/74 (96) 100 98.0 08/06/24 08:50 97.4 64 18 195/78 (117) 96 X-Ray, Labs, Meds, VS Comment Patient understands potential risks including pain, infection, swelling, recurrence, more surgery, limitied shoes, disability, nail dystrophy. Declined toenail removal and requested antibiotics. Reports she has a a ppointment with Podiatry and will follow up if symptoms worsen Time of 1ST Reevaluation: 10:30 Reevaluation 1ST: Improved Patient Education/Counseling: Diagnosis, Treatment Family Education/Counseling: Diagnosis, Treatment Departure 1 Departure Time of Disposition: 10:45 Impression: Primary Impression: Ingrown left greater toenail Disposition: 01 HOME / SELF CARE / HOMELESS Condition: Fair e-Prescriptions Clindamycin Hcl (Clindamycin Hcl) 300 Mg Cap 1 CAP PO TID for 7 Days, #21 CAP 0 Refills Prov: SILVINO DE LEÓN NP 08/06/24 Ibuprofen Micronized (Ibuprofen) 400 Mg Tab 400 MG PO Q8HP PRN for 10 Days, #30 TAB 0 Refills Prov: SILVINO DE LEÓN NP 08/06/24 Acetaminophen (Acetaminophen) 500 Mg Tab 500 MG PO Q8HP PRN for 10 Days, #30 TAB 0 Refills Prov: SILVINO DE LEÓN LOAN DOCUMENTATION SPECIALIST 08/06/24 Critical Care Note Critical Care Time?: No Stability Stability form required: No Heart Score Heart Score: Heart Score Response (Comments) Value History N/A 0 EKG N/A 0 Age N/A 0 Risk Factors N/A 0 Troponin N/A 0 Total 0 SILVINO DE LEÓN NP Aug 06, 2024 10:46
== END 2024-08-06 10:51 | disposition home or self-care (01) ==
LOC: ER 08:38
DX: L60.0 Ingrowing nail (principal); M19.90 Unspecified osteoarthritis, unspecified site; Z79.84 Long term (current) use of oral hypoglycemic drugs; Z79.899 Other long term (current) drug therapy; Z86.73 Personal history of transient ischemic attack (TIA), and cerebral infarction without residual deficits; Z98.890 Other specified postprocedural states; Z88.0 Allergy status to penicillin; Z88.6 Allergy status to analgesic agent
CPT/HCPCS: 73630

== ENCOUNTER 2024-10-26 08:05 | Inpatient (IN) | payer OTHER, MEDICAID ==
[~2024-10-26] VITALS: Ht 162.6 cm
[~2024-10-26 08:05] MED LIST changes: +ACET500T58 PO; +CLIN1CAP70 PO; +IBUP1TAB4 PO
--- NOTE | 2024-10-26 11:01 | ED.PDOC ---
History of Present Illness(SKN HPI Comments 79-year-old female presents to the ER with prior medical history of arthritis, TIA, diabetes, osteoarthritis; surgical history of PTCA and it chief complaint of a wound check. Patient reports on having a diabetic ulcer on left lateral foot with severe pain. Patient reports that she was a [facility] for the past month for the treatment of the ulcer. Patient notes the the foot is red and warm and even the left big toe toenail fell off. Denies chills, fever, N/V/D, SOB, CP. No other associated symptoms, modifiers, recent injuries or sick contacts present at this time. Chief Complaint: Wound Check Time Seen by MD: 10:10 Primary Care Provider: LACHELLE History of Present Illness: Nurses Notes, Medications, Allergies Allergies: Coded Allergies: Aspirin (Verified Allergy, Unknown, 02/12/22) Penicillins (Verified Allergy, Unknown, 02/12/22) Home Meds Active Scripts Clindamycin Hcl (Clindamycin Hcl) 300 Mg Cap, 1 CAP PO TID for 7 Days, #21 CAP 0 Refills Prov:SILVINO DE LEÓN BLACK TOP RAKER 08/06/24 Ibuprofen Micronized (Ibuprofen) 400 Mg Tab, 400 MG PO Q8HP PRN for 10 Days, #30 TAB 0 Refills Prov:SILVINO DE LEÓN BLACK TOP RAKER 08/06/24 Acetaminophen (Acetaminophen) 500 Mg Tab, 500 MG PO Q8HP PRN for 10 Days, #30 TAB 0 Refills Prov:SILVINO DE LEÓN BLACK TOP RAKER 08/06/24 Cephalexin Monohydrate (Cephalexin) 500 Mg Cap, 1 CAP PO QID, #40 CAP Prov:MARISA MARRERO 07/25/24 Reported Medications Gabapentin (Gabapentin) 300 Mg Cap, 1 CAP PO TID for 60 Days, #180 02/15/24 Metformin Hydrochloride (Metformin Hcl) 500 Mg Tab, 1 TAB PO BID for 90 Days, #180 02/15/24 Insulin Glargine (Basaglar Kwikpen) 100 Unit/Ml Inj, 15 UNIT SC DAILY for 70 Days, #12 02/15/24 Trazodone Hcl (Trazodone Hcl) 50 Mg Tab, 1 TAB PO DAILY for 30 Days, #30 02/15/24 Hydrocodone-Acetaminophen (Hydrocodone Bitartrate/AC 7.5-325 mg) 1 Tab Tab, 1 TAB PO Q8HR for 30 Days, #90 02/15/24 Furosemide (Furosemide) 40 Mg Tab, 1 TAB PO DAILY for 90 Days, #90 02/15/24 Metoprolol Succinate (Metoprolol Succinate Er) 25 Mg Tab, 1 TAB PO DAILY for 60 Days, #30 02/15/24 Atorvastatin Calcium (Lipitor) 40 Mg Tab, 1 TAB PO DAILY, #30 TAB 5 Refills 02/14/24 Empagliflozin (Jardiance) 25 Mg Tab, 25 MG PO DAILY, TAB 02/14/24 Pantoprazole Sodium Sesquihydr (Protonix) 40 Mg Tab, 40 MG PO DAILY, #30 TAB 02/14/24 Potassium Chloride (Klor-Con M20) 20 Meq Tab, 20 MEQ PO DAILY, TAB 02/14/24 Carvedilol (Carvedilol) 25 Mg Tab, 25 MG PO BID, TAB 02/14/24 Clopidogrel Bisulfate (Plavix) 75 Mg Tab, 75 MG PO DAILY, TAB 02/14/24 Nifedipine (Nifedipine Er) 60 Mg Tab, 60 MG PO DAILY, TAB 02/14/24 Information Source: Patient Mode of Arrival: Ambulatory Severity: Moderate Timing: Weeks Duration: Since onset Prehospital treatment: None Location: Foot (Left) Mechanism: Preceding Wound (Diabetic wound) Object: None Condition of Object: None Retained Foreign Body: No Wound Type: Unknown (Diabetic ulcer) Immunization Status of Animal: Unknown Tetanus: Unknown History of: Diabetes Associated Signs and Symptoms: Redness, Other (Warm to touch) Past Medical History PAST MEDICAL HISTORY: Arthritis, DM, TIA Past Medical History (Other): osteoarthritis Surgical History: PTCA CRAFT COORDINATOR History: Denies all CRAFT COORDINATOR Hx Family History Family History: Reviewed,noncontributory to illness, Unknown Social History Smoker: Non-Smoker Alcohol: Denies ETOH Use Drugs: Denies Drug Use Lives In: Home Constitutional: denies: chills, diaphoresis, fatigue, fever, malaise, sweats, weakness, others EENTM: denies: blurred vision, double vision, ear bleeding, ear discharge, ear drainage, ear pain, ear ringing, eye pain, eye redness, hearing loss, mouth pain, mouth swelling, nasal discharge, nose bleeding, nose congestion, nose pain, photophobia, tearing, throat pain, throat swelling, voice changes, others Respiratory: denies: cough, hemoptysis, orthopnea, SOB at rest, shortness of breath, SOB with excertion, stridor, wheezing, others Cardiovascular: denies: chest pain, dizzy spells, diaphoresis, Dyspnea on exertion, edema, irregular heart beat, left arm pain, lightheadedness, palpi tations, PND, syncope, others Gastrointestinal: denies: abdomen distended, abdominal pain, blood streaked bowels, constipated, diarrhea, dysphagia, difficulty swallowing, hematemesis, melena, nausea, poor appetite, poor fluid intake, rectal bleeding, rectal pain, vomiting, others Genitourinary: denies: abnormal vagina bleeding, burning, dyspareunia, dysuria, flank pain, frequency, hematuria, incontinence, pain, , vagina discharge, urgency, others Neurological: denies: dizziness, fainting, headache, left sided numbness, left sided weakness, numbness, paresthesia, pre-existing deficit, right sided numbness, right sided weakness, seizure, speech problems, tingling, tremors, weakness, others Musculoskeletal: denies: back pain, gout, joint pain, joint swelling, muscle pain, muscle stiffness, neck pain, others Integumetry: reports: change in color (Red), others (Left lateral aspect of the foot has a diabetic ulcer with redness, warmth to touch); denies: bruises, change in hair/nails, dryness, laceration, lesions, lumps, rash, wounds Allergic/Immunocompromised: denies: Difficulty Healing, Frequent Infections, Hives, Itching, others Hematologic/Lymphatic: denies: anemia, blood clots, easy bleeding, easy bruising, swollen glands, others Endocrine: denies: excessive hunger, excessive sweating, excessive thirst, excessive urination, flushing, intolerance to cold, intolerance to heat, unexplained weight gain, unexplained weight loss, others Psychiatric: denies: anxiety, bipolar disorder, depression, hopeless, panic disorder, schizophrenia, sleepless, suicidal, others All Other Systems: Reviewed and Negative Physical Exam General Appearance: Moderate Distress, Obese HEENT: Normal ENT Inspection, PERRL/EOMI, Pharynx Normal, TMs Normal Neck: Full Range of Motion, Non-Tender, Normal, Normal Inspection Respiratory: Chest Non-Tender, Lungs Clear, No Accessory Muscle Use, No Respiratory Distress, Normal Breath Sounds Cardiovascular: No Edema, No JVD, No Murmur, No Gallop, Normal Peripheral Pulses, Regular Rate/Rhythm Breast Exam: Deferred Gastrointestinal: No Organomegaly, Non Tender, No Pulsatile Mass, Normal Bowel Sounds, Soft Genitalia: Deferred Pelvic: Deferred Rectal: Deferred Extremities: No calf tenderness, Normal capillary refill, Normal inspection, Normal range of motion, Non-tender, No pedal edema Musculoskeletal : Location: Left Extremity Location: Foot Apperance: Normal, Swelling, Limited ROM, Tenderness: Moderate, Tenderness: Severe, Other (Patient with a ischemic left foot multiple wound and ulcers from the diabetes) Neurologic: Alert, echocardiography tech II-XII nml as Tested, No Motor Deficits, Normal Affect, Normal Mood, No Sensory Deficits Cerebellar Function: Normal Reflexes: Normal Skin: Dry, Normal Color, Warm Peripheral Pulses: 1+ carotid (R), 1+ carotid (L), 1+ femoral (L); 0 dorsalis pedis (L) Lymphatic: No Adenopathy Was a procedure done? Was a procedure done?: No Differential Diagnosis (INTG) Differential Diagnosis: Cellulitis Differential Diagnosis: N/A Differential Diagnosis: Cellulitis, Neurovascular Injury Abscess: Cellulitis Differential Diagnosis: Cellulitis, Other (Diabetic ulcers) X-Ray, Labs, Meds, VS Vital Signs Date Time Temp Pulse Resp B/P (MAP) Pulse Ox O2 Delivery O2 Flow Rate FiO2 10/26/24 12:51 73 10/26/24 10:26 97.3 76 17 125/68 (87) 97 97.3 10/26/24 10:26 76 17 97 Room Air 10/26/24 08:25 98.4 98 20 110/73 (85) 95 98.4 Lab Test 10/26/24 12:10 10/26/24 08:24 Range/Units White Blood Count 5.7 4.4-10.8 10^3/uL Red Blood Count 4.87 4.0-5.20 10^6/uL Hemoglobin 15.6 12.2-16.2 g/dL Hematocrit 47.6 H 36.0-46.0 % Mean Corpuscular Volume 97.8 80.0-100.0 fL Mean Corpuscular Hemoglobin 32.1 H 28.0-32.0 pg Mean Corpuscular Hemoglobin Concent 32.9 32.0-36.0 g/dL Red Cell Distribution Width 16.0 H 11.8-14.3 % Platelet Count 208 140-450 10^3/uL Mean Platelet Volume 8.7 6.9-10.8 fL Neutrophils (%) (Auto) 64.8 37.0-80.0 % Lymphocytes (%) (Auto) 25.4 10.0-50.0 % Monocytes (%) (Auto) 8.4 0.0-12.0 % Eosinophils (%) (Auto) 1.0 0.0-7.0 % Basophils (%) (Auto) 0.4 0.0-2.0 % Neutrophils # (Auto) 3.7 1.6-8.6 10 ^3/uL Lymphocytes # (Auto) 1.5 0.4-5.4 10 ^3/uL Monocytes # (Auto) 0.5 0-1.3 10 ^3/uL Eosinophils # (Auto) 0.1 0-0.8 10 ^3/uL Basophils # (Auto) 0 0-0.2 10 ^3/uL Nucleated Red Blood Cells 0.1 % Prothrombin Time 10.4 9.3-11.8 sec Prothrombin Time INR 0.98 0.9-1.15 Activated Partial Thromboplast Time 31.1 24.5-34.5 SEC Sodium Level 144 136-145 mmol/L Potassium Level 4.5 3.5-5.1 mmol/L Chloride Level 108 H 98-107 mmol/L Carbon Dioxide Level 28 20-31 mmol/L Anion Gap 8 5-15 Blood Urea Nitrogen 16 9-23 mg/dL Creatinine 1.00 0.550-1.02 mg/dL Glomerular Filtration Rate Calc 58 >90 mL/min BUN/Creatinine Ratio 16.0 10.0-20.0 Serum Glucose 200 H 74-106 mg/dL Calcium Level 9.5 8.7-10.4 mg/dL Magnesium Level 2.3 1.6-2.6 mg/dL Total Bilirubin 0.6 0.2-1.0 mg/dL Aspartate Amino Transferase (AST) 9 L 13-40 U/L Alanine Aminotransferase (ALT) < 9 7-40 U/L Alkaline Phosphatase 134 H 46-116 U/L Total Protein 7.2 5.7-8.2 g/dL Albumin 4.4 3.2-4.8 g/dL Lipase 39 12-53 U/L POC Glucose 180 H 70-106 mg/dl X-Ray, Labs, Meds, VS Comment Course in the emergency department eventful patient came in complaining of severe left foot pain on and off for months it is not getting better and has also diabetic ulcers At this time the foot is is warm and red Chest x-ray is normal The EKG shows normal sinus rhythm at 73 with a anterior ischemia CBC negative I INR 0.98 CMP blood sugar 200 Magnesium 2.3 Lipase 39 Ultrasound of the left leg shows moderate peripheral vascular disease and also the left common femoral is of stenotic Patient will be admitted for further care Time of 1ST Reevaluation: 10:40 Reevaluation 1ST: Unchanged Patient Education/Counseling: Diagnosis, Treatment, Prognosis Family Education/Counseling: No Family Present Departure 1 Departure Time of Disposition: 13:27 Impression: Primary Impression: Ischemic pain of left foot Additional Impressions: Thrombosis of left common femoral artery Diabetic foot ulcers Qualified Codes: E11.621 - Type 2 diabetes mellitus with foot ulcer; L97.522 - Non-pressure chronic ulcer of other part of left foot with fat layer exposed Uncontrolled diabetes mellitus Disposition: ADMITTED INPATIENT Admit to: Med Surg Condition: Serious Critical Care Note Critical Care Time?: No Stability Stability form required: Yes Unstable for transfer: Requires medication (Requires Med for stabilization) Heart Score Heart Score: Heart Score Response (Comments) Value History Slightly Suspicious 0 EKG Repolarization Disturb 1 Age >65 2 Risk Factors >3 or Hx ASHD 2 Troponin N/A 0 Total 5 I personally scribed for IVORY ZHAO MD ([email or web address]) on 10/26/24 at 11:01. Electronically submitted by Jeronimo Ruiz ([email or web address]). I personally scribed for IVORY ZHAO MD ([email or web address]) on 10/26/24 at 11:02. Electronically submitted by Jeronimo Ruiz ([email or web address]). IVORY ZHAO MD October 26, 2024 11:01
--- NOTE | 2024-10-26 12:11 | DVH ---
CHEST RADIOGRAPH Indication: Ischemic left foot Technique: Frontal and lateral view of the chest was obtained Comparison: XY CHEST TWO VIEWS ROUTINE on DOS: 03/20/24, XY CHEST TWO VIEWS ROUTINE on DOS: 03/11/24 FINDINGS: Lines and Tubes: None Lungs: Clear Pleura: No effusion. No pneumothorax. Cardiomediastinal contours: Borderline cardiomegaly Vascular calcification of the aortic arch Bones: Unremarkable IMPRESSION: 1. No evidence of acute disease.
[2024-10-26 12:29] LABS: Basophils # (auto) 0 10 ^3/uL (0-0.2); Basophils % (auto) 0.4 % (0.0-2.0); Eosinophils # (auto) 0.1 10 ^3/uL (0-0.8); Hematocrit 47.6 % (36.0-46.0); Hemoglobin 15.6 g/dL (12.2-16.2); Lymphocytes # (auto) 1.5 10 ^3/uL (0.4-5.4); Lymphocytes % (auto) 25.4 % (10.0-50.0); Mean Corpuscular Hemoglobin 32.1 pg (28.0-32.0); Mean Corpuscular Hgb Conc. 32.9 g/dL (32.0-36.0); Mean Corpuscular Volume 97.8 fL (80.0-100.0); Monocytes # (auto) 0.5 10 ^3/uL (0-1.3); Monocytes % (auto) 8.4 % (0.0-12.0); Neutrophils # (auto) 3.7 10 ^3/uL (1.6-8.6); Neutrophils % (auto) 64.8 % (37.0-80.0); Nucleated Red Blood Cells % 0.1 %; Platelet Count (auto) 208 10^3/uL (140-450); Red Blood Cells 4.87 10^6/uL (4.0-5.20); White Blood Cell 5.7 10^3/uL (4.4-10.8)
[2024-10-26 12:38] LABS: Anion Gap 8 (5-15); Blood Urea Nitrogen 16 mg/dL (9-23); Calcium 9.5 mg/dL (8.7-10.4); Carbon Dioxide 28 mmol/L (20-31); Lipase 39 U/L (12-53); Magnesium 2.3 mg/dL (1.6-2.6); Potassium 4.5 mmol/L (3.5-5.1); Sodium 144 mmol/L (136-145); Total Protein 7.2 g/dL (5.7-8.2)
[2024-10-26 12:39] LABS: Alanine Aminotransferase < 9 U/L (7-40); Albumin 4.4 g/dL (3.2-4.8); Alkaline Phosphatase 134 U/L (46-116); Aspartate Aminotransferase 9 U/L (13-40); Bilirubin, Total 0.6 mg/dL (0.2-1.0); Chloride 108 mmol/L (98-107); Glucose 200 mg/dL (74-106)
[2024-10-26 12:44] LABS: INR 0.98 (0.9-1.15); Partial Thromboplastin Time 31.1 SEC (24.5-34.5); Prothrombin Time 10.4 sec (9.3-11.8)
--- NOTE | 2024-10-26 12:55 | DVH ---
Left Lower Extremity Arterial Duplex Clinical History: Ischemic foot Comparison: None Technique: Duplex Doppler evaluation including color Doppler and spectral/pulsed waveform analysis of the lower extremity arteries was performed. Findings: LEFT: Monophasic waveforms throughout the left lower extremity. Elevated flow velocity in the left common f emoral artery consistent with stenosis. Peak flow velocity is 92.4 cm/sec in the left common femoral artery. . IMPRESSION: 1. Monophasic flow waveforms throughout the left lower extremity consistent with moderately advanced arteriosclerotic changes 2. Stenosis left common femoral artery. REFERENCE VALUES, [facility] ([facility]) vascular Imaging Lab Criteria: Peak systolic velocity ranges (in cm/sec) are as follows: <150 cm/s - <20 % stenosis 150-200 cm/s - 20-49% stenosis 200-300 cm/s - 50-75% stenosis >300 cm/s -> 75% stenosis
[2024-10-26] MEDS: IOHEXOL 350 MG/ML 100ML IJ ONE (16:05)
[2024-10-26] MEDS: SODIUM CHLORIDE 0.9% 1,000 ML IV ONE (16:17)
[2024-10-26] MEDS: ENOXAPARIN SOD 60 MG/0.6 ML SYRINGE SC ONE (16:25)
[2024-10-26] MEDS: cefTRIAXone 1GM/50ML D5W 50 ML IV ONE (16:31)
[2024-10-26] MEDS: MORPHINE SULFATE INJ 2 MG/ml SYRG IV ONE (16:40)
[2024-10-26] MEDS: CILOSTAZOL 100 MG TAB PO ONE (18:19)
--- NOTE | 2024-10-26 18:40 | DVH ---
CT CT ANGIO LOWER EXTREMITY INDICATION: Ischemic foot evaluation EXAM DATE: 10/26/2024 05:25 PM COMPARISON: None RADIATION DOSE: CTDIvol: 31.57 mGy, DLP: 1382.99 mGy*cm PROCEDURE: CT angiographic images were obtained of the 31.57 lower extremity. Coronal and sagittal re constructions were created. FINDINGS: The aorta and the mesenteric vessels appear patent with moderate atherosclerotic calcifications visua lized. The bilateral iliac arteries are patent with moderate atherosclerotic calcifications. 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 Superficial femoral artery: Moderate stenosis of the left SFA with atherosclerotic calcifications. Di stal left SFA stent is patent with stenosis seen proximally at the edge. Profunda artery: Mild to moderate stenosis with atherosclerotic calcifications. Popliteal artery: Patent with atherosclerotic calcifications. Anterior tibial artery: Patent with atherosclerotic calcifications. Posterior tibial artery: Patent with atherosclerotic calcifications. Peroneal artery: Patent with atherosclerotic calcifications. Right: The partially visualized right superficial femoral artery stent appears patent. No focal bone abnormality is demonstrated. Regional muscle and subcutaneous tissues appear unremarkab le. There is severe colonic diverticulosis. Calcified fibroids are visualized. A partial knee arthroplast y is visualized and appears intact and in good alignment. IMPRESSION: There is moderate to severe stenosis of the left common femoral artery, moderate stenosis of the left superficial femoral artery and stenosis of the left superficial femoral artery stent although all ap pear patent. There is 3 vessel runoff to the left foot. In the setting of foot ischemia a angiogram i s indicated in this setting. Severe colonic diverticulosis.
[2024-10-26] MEDS ORDERED: MORPHINE SULFATE INJ 2 MG/ml SYRG IV PRN ×2 (19:30)
[2024-10-26] MEDS ORDERED: NITROGLYCERIN 0.4 MG SL TAB SL PRN (19:30)
[2024-10-26] MEDS ORDERED: TEMAZEPAM 15 MG CAP PO PRN (19:30)
[2024-10-26] MEDS ORDERED: ACETAMINOPHEN 325 MG TAB PO PRN (19:30)
[2024-10-26] MEDS ORDERED: DEXTROSE (50%) 50ML SYRG IV PRN (19:45)
[2024-10-26] MEDS: SODIUM CHLORIDE 0.9% 1,000 ML IV SCH (20:50)
[2024-10-26 21:43] VITALS: PULSE 59; RESP 16; O2SAT 95
[2024-10-26] MEDS ORDERED: PRED20TA2 PO (21:55)
[2024-10-26] MEDS ORDERED: MECL1TAB42 PO (21:55)
[2024-10-26] MEDS: ACCU-CHEK COMFORT CURVE STRIP VI SCH (23:45)
[2024-10-26] MEDS: DOXYCYCLINE 100 MG TAB/CAP PO SCH (23:52)
[2024-10-26] MEDS: HYDROmorphone HCL 2 MG/ML VL/or syr IV PRN (23:52)
[2024-10-26] MEDS: INSULIN LANTUS (GLARGINE) 1 /0.01ml (100units/ml) SC SCH (23:59)
[2024-10-27] VITALS (9 sets, daily range): BP systolic 122–164; BP diastolic 65–85; PULSE 63–96; RESP 17–18; TEMP 96.5–98.3; O2SAT 90–99
[2024-10-27] MEDS: InsuLIN REG 1unit/0.01ml Soln (100units/ml) SC SCH
[2024-10-27] MEDS: HYDROcodone-ACET 5/325MG TAB PO PRN (01:25)
[2024-10-27 06:09] LABS: Basophils # (auto) 0 10 ^3/uL (0-0.2); Basophils % (auto) 0.7 % (0.0-2.0); Eosinophils # (auto) 0.1 10 ^3/uL (0-0.8); Eosinophils % (auto) 1.7 % (0.0-7.0); Hematocrit 47.2 % (36.0-46.0); Hemoglobin 15.3 g/dL (12.2-16.2); Lymphocytes # (auto) 1.6 10 ^3/uL (0.4-5.4); Mean Corpuscular Hemoglobin 31.9 pg (28.0-32.0); Mean Corpuscular Hgb Conc. 32.4 g/dL (32.0-36.0); Mean Corpuscular Volume 98.5 fL (80.0-100.0); Monocytes # (auto) 0.7 10 ^3/uL (0-1.3); Monocytes % (auto) 12.2 % (0.0-12.0); Neutrophils # (auto) 3.1 10 ^3/uL (1.6-8.6); Neutrophils % (auto) 56.4 % (37.0-80.0); Nucleated Red Blood Cells % 0.1 %; Platelet Count (auto) 185 10^3/uL (140-450); Red Blood Cells 4.79 10^6/uL (4.0-5.20); Red Cell Distribution Width 16.1 % (11.8-14.3); White Blood Cell 5.4 10^3/uL (4.4-10.8)
[2024-10-27] MEDS: PNEUMOCOCCAL VACC POLYS 25 MCG/0.5 ML VIAL IM ONE (06:23)
[2024-10-27 06:28] LABS: Albumin 3.9 g/dL (3.2-4.8); Anion Gap 5 (5-15); BUN/Creatinine Ratio 12.2 (10.0-20.0); Blood Urea Nitrogen 10 mg/dL (9-23); Calcium 9.3 mg/dL (8.7-10.4); Carbon Dioxide 27 mmol/L (20-31); HDL Cholesterol 45 mg/dL (40-59); Potassium 3.8 mmol/L (3.5-5.1); Sodium 144 mmol/L (136-145); Total Protein 6.6 g/dL (5.7-8.2)
[2024-10-27 06:29] LABS: Alanine Aminotransferase < 9 U/L (7-40); Alkaline Phosphatase 123 U/L (46-116); Aspartate Aminotransferase 12 U/L (13-40); Bilirubin, Total 0.5 mg/dL (0.2-1.0); Chloride 112 mmol/L (98-107); Cholesterol 244 mg/dL (< 200); Glucose 112 mg/dL (74-106); LDL Cholesterol 145 mg/dL (< 100); Triglycerides 302 mg/dL (< 150)
[2024-10-27] MEDS: ONDANSETRON HCL 4 MG/2 ML VIAL IV PRN (08:50)
--- NOTE | 2024-10-27 09:57 | DVHHP2 ---
Admitting Diagnosis: Peripheral Limb Ischemia History of Present Illness HPI Patient is a 79-year-old female with past medical history of PAD, CAD, tobacco dependence, type 2 diabetes, who presents with complaints of left lower extremity pain. Patient has been treated for a diabetic foot ulcer at [facility] urgent care with IV antibiotics. She has also been receiving wound care. She notes over the last 2 days she developed increasing pain prompting her to be seen in the ER. She said the day prior to admission she was seen by vascular surgeon Dr. Allen who recommended patient go to the ER for peripheral angiogram evaluation and imaging. Patient notes she continues to smoke. She notes that she smokes 1 to 2 packs of cigarettes per day since age 18. Patient had ultrasound arterial Doppler which showed good flow but stenosis in the femoral artery. This was followed up with CT angio of the lower extremity which showed moderate to severe stenosis of the left common femoral artery, moderate stenosis of the left femoral superficial artery and stenosis of the left superficial femoral artery stent. It was recommended that patient undergo angiogram. Patient was admitted for further evaluation by cardiology. Home Meds Active Scripts Clindamycin Hcl (Clindamycin Hcl) 300 Mg Cap, 1 CAP PO TID for 7 Days, #21 CAP 0 Refills Prov:SILVINO DE LEÓN BALLOON SANDER 08/06/24 Ibuprofen Micronized (Ibuprofen) 400 Mg Tab, 400 MG PO Q8HP PRN for 10 Days, #30 TAB 0 Refills Prov:SILVINO DE LEÓN BALLOON SANDER 08/06/24 Acetaminophen (Acetaminophen) 500 Mg Tab, 500 MG PO Q8HP PRN for 10 Days, #30 TAB 0 Refills Prov:SILVINO DE LEÓN BALLOON SANDER 08/06/24 Cephalexin Monohydrate (Cephalexin) 500 Mg Cap, 1 CAP PO QID, #40 CAP Prov:MARISA MARRERO 07/25/24 Reported Medications Prednisone (Prednisone) 20 Mg Tab, 20 MG PO DAILY, MG 10/26/24 Meclizine HCl (Meclizine 25) 25 Mg Tab, 25 MG PO BIDPRN PRN for DIZZINESS, TAB 10/26/24 Gabapentin (Gabapentin) 300 Mg Cap, 1 CAP PO TID for 60 Days, #180 02/15/24 Metformin Hydrochloride (Metformin Hcl) 500 Mg Tab, 1 TAB PO BID for 90 Days, #180 02/15/24 Insulin Glargine (Basaglar Kwikpen) 100 Unit/Ml Inj, 15 UNIT SC DAILY for 70 Days, #12 02/15/24 Trazodone Hcl (Trazodone Hcl) 50 Mg Tab, 1 TAB PO DAILY for 30 Days, #30 02/15/24 Hydrocodone-Acetaminophen (Hydrocodone Bitartrate/AC 7.5-325 mg) 1 Tab Tab, 1 TAB PO Q8HR for 30 Days, #90 02/15/24 Furosemide (Furosemide) 40 Mg Tab, 1 TAB PO DAILY for 90 Days, #90 02/15/24 Metoprolol Succinate (Metoprolol Succinate Er) 25 Mg Tab, 1 TAB PO DAILY for 60 Days, #30 02/15/24 Atorvastatin Calcium (Lipitor) 40 Mg Tab, 1 TAB PO DAILY, #30 TAB 5 Refills 02/14/24 Empagliflozin (Jardiance) 25 Mg Tab, 25 MG PO DAILY, TAB 02/14/24 Pantoprazole Sodium Sesquihydr (Protonix) 40 Mg Tab, 40 MG PO DAILY, #30 TAB 02/14/24 Potassium Chloride (Klor-Con M20) 20 Meq Tab, 20 MEQ PO DAILY, TAB 02/14/24 Carvedilol (Carvedilol) 25 Mg Tab, 25 MG PO BID, TAB 02/14/24 Clopidogrel Bisulfate (Plavix) 75 Mg Tab, 75 MG PO DAILY, TAB 02/14/24 Nifedipine (Nifedipine Er) 60 Mg Tab, 60 MG PO DAILY, TAB 02/14/24 Past Medical History Cardiac: CAD Endocrine: IDDM Patient Family History: Blood clots 19 CHILD FH: heart failure G8 MOTHER FH: leukemia G8 BROTHER FH: stroke 19 CHILD Smoker: Positive, 2 packs per day Review of Systems Musculoskeletal: Leg pain H&P Exam Vital Signs Vital Signs Date Time Temp Pulse Resp B/P (MAP) Pulse Ox O2 Delivery O2 Flow Rate FiO2 10/27/24 09:00 97.3 77 18 122/75 (91) 95 97.3 10/27/24 08:00 Room Air* 0 21 General Appeara: Well developed Pulmonary/Respiratory: Normal inspection, Normal breath sounds Cardiovascular/Chest: Normal inspection, Regular rate Legs: left leg other (Warm, red tender to touch. Pulses faintly present. Small, ulcerated lesion on lateral aspect) Labs/Xrays Labs Test 10/27/24 06:12 10/27/24 05:52 10/26/24 12:10 Range/Units POC Glucose 98 70-106 mg/dl White Blood Count 5.4 4.4-10.8 10^3/uL Red Blood Count 4.79 4.0-5.20 10^6/uL Hemoglobin 15.3 12.2-16.2 g/dL Hematocrit 47.2 H 36.0-46.0 % Mean Corpuscular Volume 98.5 80.0-100.0 fL Mean Corpuscular Hemoglobin 31.9 28.0-32.0 pg Mean Corpuscular Hemoglobin Concent 32.4 32.0-36.0 g/dL Red Cell Distribution Width 16.1 H 11.8-14.3 % Platelet Count 185 140-450 10^3/uL Mean Platelet Volume 8.8 6.9-10.8 fL Neutrophils (%) (Auto) 56.4 37.0-80.0 % Lymphocytes (%) (Auto) 29.0 10.0-50.0 % Monocytes (%) (Auto) 12.2 H 0.0-12.0 % Eosinophils (%) (Auto) 1.7 0.0-7.0 % Basophils (%) (Auto) 0.7 0.0-2.0 % Neutrophils # (Auto) 3.1 1.6-8.6 10 ^3/uL Lymphocytes # (Auto) 1.6 0.4-5.4 10 ^3/uL Monocytes # (Auto) 0.7 0-1.3 10 ^3/uL Eosinophils # (Auto) 0.1 0-0.8 10 ^3/uL Basophils # (Auto) 0 0-0.2 10 ^3/uL Nucleated Red Blood Cells 0.1 % Sodium Level 144 136-145 mmol/L Potassium Level 3.8 3.5-5.1 mmol/L Chloride Level 112 H 98-107 mmol/L Carbon Dioxide Level 27 20-31 mmol/L Anion Gap 5 5-15 Blood Urea Nitrogen 10 9-23 mg/dL Creatinine 0.82 0.550-1.02 mg/dL Glomerular Filtration Rate Calc 74 >90 mL/min BUN/Creatinine Ratio 12.2 10.0-20.0 Serum Glucose 112 H 74-106 mg/dL Hemoglobin A1c 9.7 H <5.7 % A1C Calcium Level 9.3 8.7-10.4 mg/dL Total Bilirubin 0.5 0.2-1.0 mg/dL Aspartate Amino Transferase (AST) 12 L 13-40 U/L Alanine Aminotransferase (ALT) < 9 7-40 U/L Alkaline Phosphatase 123 H 46-116 U/L Total Protein 6.6 5.7-8.2 g/dL Albumin 3.9 3.2-4.8 g/dL Triglycerides Level 302 H < 150 mg/dL Cholesterol Level 244 H < 200 mg/dL LDL Cholesterol 145 H < 100 mg/dL HDL Cholesterol 45 40-59 mg/dL Prothrombin Time 10.4 9.3-11.8 sec Prothrombin Time INR 0.98 0.9-1.15 Activated Partial Thromboplast Time 31.1 24.5-34.5 SEC Magnesium Level 2.3 1.6-2.6 mg/dL Lipase 39 12-53 U/L Assessment/Plan Primary Diagnosis 1. Peripheral Limb Ischemia 2. Type 2 Diabetes Insulin Dependent 3. PAD 4. History of CAD 5. Tobacco Dependence - Dr. Quinones consulted for lower extremity angiogram - TTE ordered to evaluate for underlying CHF while on cilostazol given history of CAD - Heparin drip started - Cilostazol 75 mg p.o. daily - Hold Plavix which patient takes at home. - Insulin sliding scale with glargine - Daily CBC and CMP - N.p.o. at midnight pending peripheral angiogram -Patient counseled on tobacco cessation -Doxycycline 100mg BID for diabetic ulcer - Full code Plan discussed with: Patient KANA LAWRENCE Ramya REYNOLDS Oct 27, 2024 09:57
--- NOTE | 2024-10-27 10:13 | DVHINCON2 ---
Date of service: Oct 27, 2024 History of Present Illness 79 yo F with cad s/p pci, DM, htn, pad s/p stenting by another provider admitted for foot ulcer to LLE and ischemci rest pain. pt had LLE intervention in past but she has forgotten when and with whom. CTA shows high grade pad on L side Past Medical History reviewed Family History: Blood clots 19 CHILD FH: heart failure G8 MOTHER FH: leukemia G8 BROTHER FH: stroke 19 CHILD Allergies: Coded Allergies: Aspirin (Verified Allergy, Unknown, 02/12/22) Penicillins (Verified Allergy, Unknown, 02/12/22) Home Meds Active Scripts Clindamycin Hcl (Clindamycin Hcl) 300 Mg Cap, 1 CAP PO TID for 7 Days, #21 CAP 0 Refills Prov:SILVINO DE LEÓN BATCH BLENDER 08/06/24 Ibuprofen Micronized (Ibuprofen) 400 Mg Tab, 400 MG PO Q8HP PRN for 10 Days, #30 TAB 0 Refills Prov:SILVINO DE LEÓN BATCH BLENDER 08/06/24 Acetaminophen (Acetaminophen) 500 Mg Tab, 500 MG PO Q8HP PRN for 10 Days, #30 TAB 0 Refills Prov:SILVINO DE LEÓN BATCH BLENDER 08/06/24 Cephalexin Monohydrate (Cephalexin) 500 Mg Cap, 1 CAP PO QID, #40 CAP Prov:MARISA MARRERO 07/25/24 Reported Medications Prednisone (Prednisone) 20 Mg Tab, 20 MG PO DAILY, MG 10/26/24 Meclizine HCl (Meclizine 25) 25 Mg Tab, 25 MG PO BIDPRN PRN for DIZZINESS, TAB 10/26/24 Gabapentin (Gabapentin) 300 Mg Cap, 1 CAP PO TID for 60 Days, #180 02/15/24 Metformin Hydrochloride (Metformin Hcl) 500 Mg Tab, 1 TAB PO BID for 90 Days, #180 02/15/24 Insulin Glargine (Basaglar Kwikpen) 100 Unit/Ml Inj, 15 UNIT SC DAILY for 70 Days, #12 02/15/24 Trazodone Hcl (Trazodone Hcl) 50 Mg Tab, 1 TAB PO DAILY for 30 Days, #30 02/15/24 Hydrocodone-Acetaminophen (Hydrocodone Bitartrate/AC 7.5-325 mg) 1 Tab Tab, 1 TAB PO Q8HR for 30 Days, #90 02/15/24 Furosemide (Furosemide) 40 Mg Tab, 1 TAB PO DAILY for 90 Days, #90 02/15/24 Metoprolol Succinate (Metoprolol Succinate Er) 25 Mg Tab, 1 TAB PO DAILY for 60 Days, #30 02/15/24 Atorvastatin Calcium (Lipitor) 40 Mg Tab, 1 TAB PO DAILY, #30 TAB 5 Refills 02/14/24 Empagliflozin (Jardiance) 25 Mg Tab, 25 MG PO DAILY, TAB 02/14/24 Pantoprazole Sodium Sesquihydr (Protonix) 40 Mg Tab, 40 MG PO DAILY, #30 TAB 02/14/24 Potassium Chloride (Klor-Con M20) 20 Meq Tab, 20 MEQ PO DAILY, TAB 02/14/24 Carvedilol (Carvedilol) 25 Mg Tab, 25 MG PO BID, TAB 02/14/24 Clopidogrel Bisulfate (Plavix) 75 Mg Tab, 75 MG PO DAILY, TAB 02/14/24 Nifedipine (Nifedipine Er) 60 Mg Tab, 60 MG PO DAILY, TAB 02/14/24 Current Medications Current Medications Medications (Trade) Dose Ordered Sig/Marni Route PRN Reason Start Time Stop Time Status Last Admin Acetaminophen (Tylenol Tablet) 325 mg Q4HP PRN PO MILD PAIN (1-3 PAIN SCALE) 10/26/24 19:30 Acetaminophen/ Hydrocodone Bitart ([place] 5/325MG Tab) 1 tab Q4HP PRN PO MODERATE PAIN (4-6 PAIN SCALE) 10/26/24 19:30 10/27/24 01:25 Temazepam (Restoril) 15 mg QHSP PRN PO FOR INSOMNIA 10/26/24 19:30 Ondansetron HCl (Zofran) 4 mg Q4HP PRN IV NAUSEA / VOMITING 10/26/24 19:30 10/27/24 08:50 Docusate Sodium (Colace Capsule) 100 mg BIDPRN PRN PO FOR CONSTIPATION 10/26/24 19:30 Morphine Sulfate 2 mg Q3HR PRN IV SEVERE PAIN (7-10 PAIN SCALE) 10/26/24 19:30 Nitroglycerin (Ntrostat Sublingual) 0.4 mg Q5MINP PRN SL FOR CHEST PAIN 10/26/24 19:30 Morphine Sulfate 2 mg Q30M PRN IV FOR CHEST PAIN 10/26/24 19:30 Sodium Chloride 1,000 ml @ 75 mls/hr [id number] IV 10/26/24 19:45 10/27/24 08:42 Diagnostic Test (Pha) (Accu-Chek Comfort Curve T) 1 strip ACHS 10/26/24 22:00 10/26/24 23:45 Insulin Human Regular (InsuLIN R) ACHS SC 10/26/24 22:00 10/27/24 00:00 Dextrose 50 ml UD PRN IV Blood Sugar LESS THAN 60 10/26/24 19:45 Insulin Glargine (Lantus) 7 units HS SC 10/26/24 22:00 10/26/24 23:59 Doxycycline Monohydrate (Vibramycin Tablet) 100 mg BID PO 10/26/24 22:00 10/26/24 23:52 Hydromorphone HCl (Dilaudid Injection) 0.5 mg Q2HPRN PRN IV breakthrough pain 10/26/24 19:45 10/27/24 08:44 Review of Systems 10 pt ros otherwise negative Vital Signs Vital Signs Date Time Temp Pulse Resp B/P (MAP) Pulse Ox O2 Delivery O2 Flow Rate FiO2 10/27/24 09:00 97.3 77 18 122/75 (91) 95 97.3 10/27/24 08:00 Room Air* 0 21 Physical Exam mild distress and pain, nausea s1 s2 rrr ctab soft nt/nd LLE bandaged up, L great toe and lateral foot ulcer Labs/Diagnostic Data Labs Test 10/27/24 06:12 10/27/24 05:52 10/26/24 12:10 Range/Units POC Glucose 98 70-106 mg/dl White Blood Count 5.4 4.4-10.8 10^3/uL Red Blood Count 4.79 4.0-5.20 10^6/uL Hemoglobin 15.3 12.2-16.2 g/dL Hematocrit 47.2 H 36.0-46.0 % Mean Corpuscular Volume 98.5 80.0-100.0 fL Mean Corpuscular Hemoglobin 31.9 28.0-32.0 pg Mean Corpuscular Hemoglobin Concent 32.4 32.0-36.0 g/dL Red Cell Distribution Width 16.1 H 11.8-14.3 % Platelet Count 185 140-450 10^3/uL Mean Platelet Volume 8.8 6.9-10.8 fL Neutrophils (%) (Auto) 56.4 37.0-80.0 % Lymphocytes (%) (Auto) 29.0 10.0-50.0 % Monocytes (%) (Auto) 12.2 H 0.0-12.0 % Eosinophils (%) (Auto) 1.7 0.0-7.0 % Basophils (%) (Auto) 0.7 0.0-2.0 % Neutrophils # (Auto) 3.1 1.6-8.6 10 ^3/uL Lymphocytes # (Auto) 1.6 0.4-5.4 10 ^3/uL Monocytes # (Auto) 0.7 0-1.3 10 ^3/uL Eosinophils # (Auto) 0.1 0-0.8 10 ^3/uL Basophils # (Auto) 0 0-0.2 10 ^3/uL Nucleated Red Blood Cells 0.1 % Sodium Level 144 136-145 mmol/L Potassium Level 3.8 3.5-5.1 mmol/L Chloride Level 112 H 98-107 mmol/L Carbon Dioxide Level 27 20-31 mmol/L Anion Gap 5 5-15 Blood Urea Nitrogen 10 9-23 mg/dL Creatinine 0.82 0.550-1.02 mg/dL Glomerular Filtration Rate Calc 74 >90 mL/min BUN/Creatinine Ratio 12.2 10.0-20.0 Serum Glucose 112 H 74-106 mg/dL Hemoglobin A1c 9.7 H <5.7 % A1C Calcium Level 9.3 8.7-10.4 mg/dL Total Bilirubin 0.5 0.2-1.0 mg/dL Aspartate Amino Transferase (AST) 12 L 13-40 U/L Alanine Aminotransferase (ALT) < 9 7-40 U/L Alkaline Phosphatase 123 H 46-116 U/L Total Protein 6.6 5.7-8.2 g/dL Albumin 3.9 3.2-4.8 g/dL Triglycerides Level 302 H < 150 mg/dL Cholesterol Level 244 H < 200 mg/dL LDL Cholesterol 145 H < 100 mg/dL HDL Cholesterol 45 40-59 mg/dL Prothrombin Time 10.4 9.3-11.8 sec Prothrombin Time INR 0.98 0.9-1.15 Activated Partial Thromboplast Time 31.1 24.5-34.5 SEC Magnesium Level 2.3 1.6-2.6 mg/dL Lipase 39 12-53 U/L Assessment extensive PAD HTN HL ischemic rest pain foot ulcer cad s/p pci Plan/Recommendation recommend peripheral angiogram pt agrees to plan after informed consent she wishes to proceed high risk pt for tissue/ limb loss given severity of pad reviewed previous cath images IMPRESSION: There is moderate to severe stenosis of the left common femoral artery, moderate stenosis of the left superficial femoral artery and stenosis of the left superficial femoral artery stent although all appear patent. There is 3 vessel runoff to the left foot. In the setting of foot ischemia a angiogram is indicated in this setting. Severe colonic diverticulosis. Plan discussed with: Patient ENRIKE SHEPHERD MD Oct 27, 2024 10:13
[2024-10-27] MEDS ORDERED: HEPARIN SODIUM (PORCINE) 5000 UNITS/ML 1ML VIAL IV ONE (10:15)
--- NOTE | 2024-10-27 10:35 | ECG ---
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
[2024-10-27 11:59] LABS: INR 1.08 (0.9-1.15); Partial Thromboplastin Time 33.6 SEC (24.5-34.5); Prothrombin Time 11.4 sec (9.3-11.8)
[2024-10-27] MEDS: HEPARIN DRIP/D5W 100UNITS/ML 250 ML IV SCH ×2 (12:31→18:15)
[2024-10-27] MEDS: MORPHINE SULFATE 4 MG/ML SYR/VIAL IV PRN (13:59)
[2024-10-27 17:35] LABS: Urine Bacteria None Seen /hpf (None Seen)
[2024-10-27 17:44] LABS: INR 1.01 (0.9-1.15); Prothrombin Time 10.7 sec (9.3-11.8)
[2024-10-27 17:47] LABS: Urine Blood 2+ /uL (Negative); Urine Clarity Clear (Clear); Urine Color Light-Yellow (Yellow); Urine Protein, UAD TRACE (Negative); Urine Specific Gravity 1.039 (1.001-1.035); Urine Squamous Epithelial Cell FEW /hpf (<5); Urine Urobilinogen Normal (Negative); Urine WBC 7 /HPF (0-5); Urine pH 5.5 (5.0-9.0)
[2024-10-27 17:52] LABS: Partial Thromboplastin Time 76.3 SEC (24.5-34.5)
--- NOTE | 2024-10-27 18:14 | CONS ---
Pharmacy Clinical Information: HEPARIN DRIP RATE DECREASED TO 1300 UNITS/HR PER APTT OF 76.3 (SUPRATHERAPEU TIC). NEXT APTT DRAW SCHEDULED FOR 10/28 @0000 PER RX PROTOCOL. SINDY VARELA PHARMACIST Oct 27, 2024 18:14
[2024-10-27] MEDS: ATORVASTATIN 20 MG TAB PO SCH (21:30)
[2024-10-27] MEDS: hydrALAZINE HCL 25 MG TAB PO PRN (22:41)
[2024-10-28] VITALS (13 sets, daily range): BP systolic 128–170; BP diastolic 61–77; PULSE 64–101; RESP 12–22; TEMP 96.4–98.3; O2SAT 92–98
[2024-10-28 01:18] LABS: Prothrombin Time 11.3 sec (9.3-11.8)
[2024-10-28 01:19] LABS: INR 1.07 (0.9-1.15)
[2024-10-28 01:21] LABS: Partial Thromboplastin Time > 139.0 SEC (24.5-34.5)
[2024-10-28] MEDS ORDERED: HEPARIN DRIP/D5W 100UNITS/ML 250 ML IV SCH ×2 (02:15→13:15)
[2024-10-28] MEDS: HEPARIN DRIP/D5W 100UNITS/ML 250 ML IV SCH ×2 (02:31→20:43)
[2024-10-28 07:47] LABS: Basophils # (auto) 0 10 ^3/uL (0-0.2); Basophils % (auto) 0.4 % (0.0-2.0); Eosinophils # (auto) 0.1 10 ^3/uL (0-0.8); Eosinophils % (auto) 1.5 % (0.0-7.0); Hematocrit 48.4 % (36.0-46.0); Hemoglobin 15.6 g/dL (12.2-16.2); Lymphocytes # (auto) 1.5 10 ^3/uL (0.4-5.4); Lymphocytes % (auto) 27.9 % (10.0-50.0); Mean Corpuscular Hemoglobin 32.3 pg (28.0-32.0); Mean Corpuscular Hgb Conc. 32.2 g/dL (32.0-36.0); Mean Corpuscular Volume 100.5 fL (80.0-100.0); Monocytes # (auto) 0.7 10 ^3/uL (0-1.3); Neutrophils # (auto) 3.1 10 ^3/uL (1.6-8.6); Neutrophils % (auto) 57.2 % (37.0-80.0); Nucleated Red Blood Cells % 0.3 %; Platelet Count (auto) 164 10^3/uL (140-450); Red Blood Cells 4.82 10^6/uL (4.0-5.20); Red Cell Distribution Width 15.9 % (11.8-14.3); White Blood Cell 5.5 10^3/uL (4.4-10.8)
[2024-10-28 07:56] LABS: Alanine Aminotransferase 10 U/L (7-40); Albumin 3.8 g/dL (3.2-4.8); Alkaline Phosphatase 109 U/L (46-116); Anion Gap 5 (5-15); Aspartate Aminotransferase 18 U/L (13-40); BUN/Creatinine Ratio 10.8 (10.0-20.0); Calcium 9.2 mg/dL (8.7-10.4); Carbon Dioxide 25 mmol/L (20-31); Potassium 4.3 mmol/L (3.5-5.1); Sodium 141 mmol/L (136-145); Total Protein 6.4 g/dL (5.7-8.2)
[2024-10-28 07:57] LABS: Bilirubin, Total 0.5 mg/dL (0.2-1.0)
[2024-10-28 07:59] LABS: Blood Urea Nitrogen 8 mg/dL (9-23); Chloride 111 mmol/L (98-107); Glucose 114 mg/dL (74-106)
--- NOTE | 2024-10-28 08:14 | DVHSR ---
APPROVED REPORT EXAM: LIMITED Two-dimensional and M-mode echocardiogram with Doppler and color Doppler. Blood Pressure: 159/80 mmHg INDICATION TX with cilostazol need to evaluate RISK FACTORS Height: 5' 4", Weight: 179 DIMENSIONS LVDd4.6 (3.8-5.7cm)LA (2D)4.0 (1.9-4.0cm)Aortic Root (2.0-3.7cm) LVDs3.3 (2.5-4.0cm)LA (MM) (1.9-4.0cm)Aortic Cusp Exc (1.5-2.0cm) EF (%) 55.0 (55-70%)Rt. Atrium3.6 (1.9-4.0cm)Asc. Aorta cm IVSd1.0 (0.7-1.1cm)RV (D) (1.8-2.4cm) PWd1.0 (0.7-1.1cm) Mitral Valve MitralMitral Stenosis E wave1.10m/sMV Mean GR.mmHg A wave1.60m/sMV Peak GR.mmHg E/A ratio0.72D MVAcm2 Aortic Valve Aortic ValveAortic Stenosis V11.50m/Janak Mean GR.18mmHg V22.70m/Janak Peak GR.29mmHg LVOT Diameter2.2 (1.8-2.4cm)Doppler AVA2.11cm2 Other Information Quality : Technically LimitedRhythm : Technically limited study due to body habitus and patient position. Conclusion lvef 60% by visual estimate mild to moderate LVH RV enlarged not well seen biatrial enlargement no severe valve abnormalities noted limtited quality study
[2024-10-28] MEDS: CLOPIDOGREL BISULFATE 75 MG TAB PO SCH (11:05)
[2024-10-28] MEDS: HEPARIN DRIP/D5W 100UNITS/ML 250 ML IV ONE (11:47)
[2024-10-28 11:50] LABS: INR 1.05 (0.9-1.15); Prothrombin Time 11.1 sec (9.3-11.8)
[2024-10-28 11:52] LABS: Partial Thromboplastin Time 135.5 SEC (24.5-34.5)
[2024-10-28 11:59] LABS: Hepatitis B Surface Antigen Negative (Negative); Hepatitis C Antibody Negative (Negative)
[2024-10-28] MEDS: fentaNYL CITRATE 100 MCG/2 ML VL ONE (12:09)
[2024-10-28] MEDS: HEPARIN IN NS 1000Units/500mL 1,500 ML ONE (12:09)
[2024-10-28] MEDS: MIDAZOLAM HCL 2MG/2ML 2ml VIAL (1mg/ml) ONE (12:09)
[2024-10-28] MEDS: IODIXANOL 320MG/ML 100ML BTL IV ONE (12:09)
[2024-10-28] MEDS: SODIUM CHL 0.9% 0 ML ONE (12:10)
[2024-10-28] MEDS: LIDOCAINE 2%HCL (LOCAL ANESTH.) INJ 20ML MDV ONE (12:10)
[2024-10-28] MEDS: ANGIOMAX 250 MG VIAL IV ONE (12:10)
[2024-10-28] MEDS: VERAPAMIL 2.5MG/ML INJ 2ML VIAL IV ONE (12:28)
--- NOTE | 2024-10-28 13:08 | CONS ---
Pharmacy Clinical Information: PATIENT CURRENTLY IN COLLEGE ADMINISTRATOR, HEPARIN DRIP ON HOLD PER APTT OF 135.5 AFTER PROCEDURE, DRIP MAY BE RESUMED, NEW RATE TO BE 700 UNITS/HR NEXT APTT DRAW SCHEDULED FOR 1900 PER RX PROTOCOL. SINDY VARELA PHARMACIST Oct 28, 2024 13:08
[2024-10-28] MEDS: hydrALAZINE HCL 20 MG/ML VL ONE (13:14)
--- NOTE | 2024-10-28 13:31 | DVHPN2 ---
Progress Note - Dictate Date Seen: Oct 28, 2024 Medical Necessity Reason Pt with a Central, PICC or Fol: No Subjective Patient continues to note leg pain. vital signs Vital Sign Date Time Temp Pulse Resp B/P (MAP) Pulse Ox O2 Delivery O2 Flow Rate FiO2 10/28/24 13:14 239/95 10/28/24 09:30 98.1 80 18 97 98.1 10/28/24 08:00 Room Air* 0 21 Total Intake and Output 10/27/24 10/27/24 10/28/24 15:00 23:00 07:00 Intake Total 350 ml 1600 ml 1450 ml Output Total 100 ml Balance 350 ml 1500 ml 1450 ml medications Current Medications Medications Dose Ordered Sig/Marni Route Start Time Stop Time Status Last Admin Dose Admin Acetaminophen 325 mg Q4HP PRN PO 10/26/24 19:30 Acetaminophen/ Hydrocodone Bitart 1 tab Q4HP PRN PO 10/26/24 19:30 10/27/24 01:25 1 TAB Temazepam 15 mg QHSP PRN PO 10/26/24 19:30 Ondansetron HCl 4 mg Q4HP PRN IV 10/26/24 19:30 10/27/24 13:58 4 MG Docusate Sodium 100 mg BIDPRN PRN PO 10/26/24 19:30 Nitroglycerin 0.4 mg Q5MINP PRN SL 10/26/24 19:30 Morphine Sulfate 2 mg Q30M PRN IV 10/26/24 19:30 Sodium Chloride 1,000 ml @ 75 mls/hr [id number] IV 10/26/24 19:45 10/28/24 00:54 75 MLS/HR Diagnostic Test (Pha) 1 strip ACHS 10/26/24 22:00 10/28/24 11:33 1 STRIP Insulin Human Regular ACHS SC 10/26/24 22:00 10/27/24 00:00 3 UNITS Dextrose 50 ml UD PRN IV 10/26/24 19:45 Insulin Glargine 7 units HS SC 10/26/24 22:00 10/27/24 21:36 7 UNITS Doxycycline Monohydrate 100 mg BID PO 10/26/24 22:00 10/28/24 11:05 100 MG Hydromorphone HCl 0.5 mg Q2HPRN PRN IV 10/26/24 19:45 10/28/24 05:32 0.5 MG Clopidogrel Bisulfate 75 mg DAILY PO 10/28/24 10:00 10/28/24 11:05 75 MG Atorvastatin Calcium 40 mg HS PO 10/27/24 22:00 10/27/24 21:30 40 MG Morphine Sulfate 4 mg Q4HPRN PRN IV 10/27/24 12:45 10/28/24 00:42 4 MG Hydralazine HCl 25 mg Q4HPRN PRN PO 10/27/24 22:30 10/28/24 11:32 25 MG objective General appearance: No acute distress Respiratory: Lungs clear to auscultation. No wheezing, crackles Cardiovascular: Regular rate and rhythm, no murmurs. LLE warm, tender to touch Abdomen: Soft, nondistended, nontender, bowel sounds present MSK: Normal range of motion. Neuro: Alert, no neurological deficits Psych: Appropriate mood and affect. laboratory and microbiology Laboratory Tests 10/28/24 07:18 Test 10/28/24 07:18 Range/Units Serum Glucose 114 H 74-106 mg/dL Assessment/Plan 1. Peripheral Limb Ischemia 2. Type 2 Diabetes Insulin Dependent 3. PAD 4. History of CAD 5. Tobacco Dependence - Dr. Quinones consulted for lower extremity angiogram - TTE ordered to evaluate for underlying CHF while on cilostazol given history of CAD - Heparin drip - Cilostazol 75 mg p.o. daily - Restart plavix per cardiology - Insulin sliding scale with glargine - Daily CBC and CMP -Plan for peripheral angiogram today -Patient counseled on tobacco cessation -Doxycycline 100mg BID for diabetic ulcer - Full code Plan discussed with: Patient KANA LAWRENCE Oct 28, 2024 13:31
--- NOTE | 2024-10-28 13:38 | DVHPN2 ---
Progress Note Date Seen: Oct 28, 2024 Medical Necessity Reason Pt with a Central, PICC or Fol: No Subjective Patient reports: Feels better Objective vital signs Vital Sign Date Time Temp Pulse Resp B/P (MAP) Pulse Ox O2 Delivery O2 Flow Rate FiO2 10/28/24 13:14 239/95 10/28/24 09:30 98.1 80 18 97 98.1 10/28/24 08:00 Room Air* 0 21 Total Intake and Output 10/27/24 10/27/24 10/28/24 15:00 23:00 07:00 Intake Total 350 ml 1600 ml 1450 ml Output Total 100 ml Balance 350 ml 1500 ml 1450 ml medications Current Medications Medications Dose Ordered Sig/Marni Route Start Time Stop Time Status Last Admin Dose Admin Acetaminophen 325 mg Q4HP PRN PO 10/26/24 19:30 Acetaminophen/ Hydrocodone Bitart 1 tab Q4HP PRN PO 10/26/24 19:30 10/27/24 01:25 1 TAB Temazepam 15 mg QHSP PRN PO 10/26/24 19:30 Ondansetron HCl 4 mg Q4HP PRN IV 10/26/24 19:30 10/27/24 13:58 4 MG Docusate Sodium 100 mg BIDPRN PRN PO 10/26/24 19:30 Nitroglycerin 0.4 mg Q5MINP PRN SL 10/26/24 19:30 Morphine Sulfate 2 mg Q30M PRN IV 10/26/24 19:30 Sodium Chloride 1,000 ml @ 75 mls/hr [id number] IV 10/26/24 19:45 10/28/24 00:54 75 MLS/HR Diagnostic Test (Pha) 1 strip ACHS 10/26/24 22:00 10/28/24 11:33 1 STRIP Insulin Human Regular ACHS SC 10/26/24 22:00 10/27/24 00:00 3 UNITS Dextrose 50 ml UD PRN IV 10/26/24 19:45 Insulin Glargine 7 units HS SC 10/26/24 22:00 10/27/24 21:36 7 UNITS Doxycycline Monohydrate 100 mg BID PO 10/26/24 22:00 10/28/24 11:05 100 MG Hydromorphone HCl 0.5 mg Q2HPRN PRN IV 10/26/24 19:45 10/28/24 05:32 0.5 MG Clopidogrel Bisulfate 75 mg DAILY PO 10/28/24 10:00 10/28/24 11:05 75 MG Atorvastatin Calcium 40 mg HS PO 10/27/24 22:00 10/27/24 21:30 40 MG Morphine Sulfate 4 mg Q4HPRN PRN IV 10/27/24 12:45 10/28/24 00:42 4 MG Hydralazine HCl 25 mg Q4HPRN PRN PO 10/27/24 22:30 10/28/24 11:32 25 MG Examination: GENERAL:Abnormal, HEENT:Abnormal, LUNGS:Abnormal, CVS:Abnormal, ABDOMEN:Abnormal laboratory and microbiology Laboratory Tests 10/28/24 07:18 Test 10/28/24 07:18 Range/Units Serum Glucose 114 H 74-106 mg/dL Problem List/Assessment/Plan Problem List/Assessment/Plan SEVERE PAD NON HEALING ULCER HTN CAD S/P PCI HL OBESITY CHRONIC PAIN S/P ANGIO LLE 90-95% 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
--- NOTE | 2024-10-28 17:08 | DVHOP ---
DATE OF SURGERY: 10/28/2024 PREOPERATIVE DIAGNOSES: Severe peripheral artery disease, ischemic rest pain, nonhealing ulcer. POSTOPERATIVE DIAGNOSES: Severe peripheral artery disease, ischemic rest pain, nonhealing ulcer. PROCEDURES PERFORMED: Abdominal angiogram with bilateral lower extremity runoff, bilateral lower extremity angiogram, third order catheter placement, first order and second order catheter placement, fluoroscopy use interpretation, ultrasound-guided vascular access, conscious sedation administration and supervision less than 15 minutes as well as 15-30 minutes fluoroscopy use. DESCRIPTION OF PROCEDURE: The patient signed informed consent and understanding risks, benefits, and alternatives of procedure. She wished to proceed. She was brought to the greens laborer in n.p.o. state. She was prepped in sterile fashion. Sedation was used per cardiac cath protocol. I initially tried to obtain access to her left ankle. I gave 1 mL of 2% lidocaine to her left ankle region; however, there was no good anterior tibial artery or posterior tibial artery. I was able to cannulate the posterior tibial artery; however, I was unable to wire it. The vessel appears to be very diminutive. Therefore, I turned my attention to the right groin with an antegrade flow wall puncture after giving 6 mL of 2% lidocaine. In ultrasound-guided access, I cannulated the right common femoral artery and placed a 6-Pakistani sheath. Ipsilateral angiogram was performed showing appropriate arteriotomy site. Then, I took a RIM catheter for an abdominal angiogram and lower extremity runoff. FINDINGS: Descending aorta appears to be ectatic and patent. Right common iliac artery is heavily calcified and patent. Right external iliac artery is patent. Left common iliac artery is patent. Left external iliac artery is patent. The left common femoral artery has a 90% heavily calcified lesion. Left profunda artery is patent. Left proximal SFA has a 70% lesion, mid SFA 80% to 90% lesion, and mid to distal SFA has a previously placed stent with diffuse in-stent restenosis of 80% to 90%. Left popliteal artery is patent with mild blocking. Left tibioperoneal trunk is patent. Left posterior tibial artery is patent. Left peroneal artery is patent. Left anterior tibial artery appears to be patent with a very distal COSTUME SHOP COORDINATOR of the left AT with distal reconstitution. Right common femoral artery is patent. Right proximal SFA has a patent stent. Right mid SFA has a patent stent. Right mid to distal SFA has a 99% in-stent restenosis lesion from a previously placed stent by another cantilever crane operator. Right lower extremity does have what appears to be three-vessel runoff. CONCLUSION: * Critical left common femoral artery high-grade calcific stenosis typically best treated with endarterectomy. * Left diffuse SFA disease that could be treated with endovascular treatment in the future versus surgical bypass pending vascular eval. * Right severe SFA stenosis, in-stent restenosis that would need drug-coated balloon in the future for treatment. Edu Quinones MD CM/NABOR/ELIE TID: [id number] RECEIPT: [id number]
[2024-10-28 19:06] LABS: Basophils # (auto) 0 10 ^3/uL (0-0.2); Basophils % (auto) 0.4 % (0.0-2.0); Eosinophils # (auto) 0 10 ^3/uL (0-0.8); Eosinophils % (auto) 0.7 % (0.0-7.0); Hematocrit 51.3 % (36.0-46.0); Hemoglobin 16.9 g/dL (12.2-16.2); Lymphocytes % (auto) 15.5 % (10.0-50.0); Mean Corpuscular Hemoglobin 32.5 pg (28.0-32.0); Mean Corpuscular Volume 98.5 fL (80.0-100.0); Monocytes # (auto) 0.3 10 ^3/uL (0-1.3); Neutrophils % (auto) 78.4 % (37.0-80.0); Nucleated Red Blood Cells % 0.2 %; Platelet Count (auto) 164 10^3/uL (140-450); Red Blood Cells 5.21 10^6/uL (4.0-5.20); Red Cell Distribution Width 15.9 % (11.8-14.3); White Blood Cell 6.3 10^3/uL (4.4-10.8)
[2024-10-28 19:21] LABS: INR 0.99 (0.9-1.15); Partial Thromboplastin Time 34.3 SEC (24.5-34.5); Prothrombin Time 10.5 sec (9.3-11.8)
--- NOTE | 2024-10-28 19:41 | CONS ---
Pharmacy Clinical Information: PLEASE RESUME HEPARIN AT NEW RATE OF 700 UNITS/HR OR 7 ML/HR @10/28 (LATEST APTT = 34.3 @1854) . NEXT APTT DRAW SCHEDULED @10/29 PER RX PROTOCOL. ANTIONE AWARE AND REPEATED ORDER BACK 700 UNITS/HR OR 7 ML/HR TO START [address] SHEPHERD'S ORDER CIERRA MCCORMACK PHARMACIST Oct 28, 2024 19:41
[2024-10-28] MEDS: HEPARIN SODIUM (PORCINE) 5000 UNITS/ML 1ML VIAL IV ONE (20:00)
[2024-10-29] VITALS (8 sets, daily range): BP systolic 124–156; BP diastolic 47–68; PULSE 81–99; RESP 16–19; TEMP 97.6–98.2; O2SAT 75–98
[2024-10-29 02:13] LABS: Basophils # (auto) 0 10 ^3/uL (0-0.2); Basophils % (auto) 0.3 % (0.0-2.0); Eosinophils # (auto) 0 10 ^3/uL (0-0.8); Eosinophils % (auto) 0.4 % (0.0-7.0); Hematocrit 47.5 % (36.0-46.0); Hemoglobin 15.7 g/dL (12.2-16.2); Lymphocytes # (auto) 1.3 10 ^3/uL (0.4-5.4); Lymphocytes % (auto) 20.4 % (10.0-50.0); Mean Corpuscular Hemoglobin 32.5 pg (28.0-32.0); Mean Corpuscular Hgb Conc. 33.1 g/dL (32.0-36.0); Mean Corpuscular Volume 98.2 fL (80.0-100.0); Monocytes # (auto) 0.6 10 ^3/uL (0-1.3); Monocytes % (auto) 9.4 % (0.0-12.0); Neutrophils # (auto) 4.4 10 ^3/uL (1.6-8.6); Neutrophils % (auto) 69.5 % (37.0-80.0); Nucleated Red Blood Cells % 0.1 %; Platelet Count (auto) 198 10^3/uL (140-450); Red Blood Cells 4.83 10^6/uL (4.0-5.20); Red Cell Distribution Width 15.7 % (11.8-14.3); White Blood Cell 6.3 10^3/uL (4.4-10.8)
[2024-10-29 02:26] LABS: INR 1.03 (0.9-1.15); Partial Thromboplastin Time 36.7 SEC (24.5-34.5); Prothrombin Time 10.9 sec (9.3-11.8)
[2024-10-29 02:27] LABS: Alkaline Phosphatase 110 U/L (46-116); Anion Gap 10 (5-15); BUN/Creatinine Ratio 9.9 (10.0-20.0); Calcium 9.2 mg/dL (8.7-10.4); Carbon Dioxide 23 mmol/L (20-31); Chloride 106 mmol/L (98-107); Glucose 96 mg/dL (74-106); Potassium 4.2 mmol/L (3.5-5.1); Sodium 139 mmol/L (136-145); Total Protein 6.6 g/dL (5.7-8.2)
[2024-10-29 02:28] LABS: Bilirubin, Total 0.6 mg/dL (0.2-1.0)
[2024-10-29 02:31] LABS: Alanine Aminotransferase < 9 U/L (7-40); Aspartate Aminotransferase 13 U/L (13-40); Blood Urea Nitrogen 7 mg/dL (9-23)
[2024-10-29] MEDS: HEPARIN DRIP/D5W 100UNITS/ML 250 ML IV SCH ×2 (02:42→12:05)
--- NOTE | 2024-10-29 06:49 | DVHCONRES ---
Date Seen: Oct 29, 2024 Resident Creating Document: HEATHER FARFAN Jr., MD Referring Physician jazmín Reason for Consultation Severe peripheral vascular disease left common femoral artery 90% stenosis critical limb ischemia. History of Present Illness Patient is a 79-year-old female with past medical history of PAD, CAD, tobacco dependence, type 2 diabetes, who presents with complaints of left lower extremity pain. Patient has been treated for a diabetic foot ulcer at [facility] urgent care with IV antibiotics. She has also been receiving wound care. She notes over the last 2 days she developed increasing pain prompting her to be seen in the ER. She said the day prior to admission she was seen by vascular surgeon Dr. Allen who recommended patient go to the ER for peripheral angiogram evaluation and imaging. Patient notes she continues to smoke. She notes that she smokes 1 to 2 packs of cigarettes per day since age 18. Patient had ultrasound arterial Doppler which showed good flow but stenosis in the femoral artery. This was followed up with CT angio of the lower extremity which showed moderate to severe stenosis of the left common femoral artery, moderate stenosis of the left femoral superficial artery and stenosis of the left superficial femoral artery stent. Patient underwent a angiogram yesterday which demonstrated critical limb ischemia with a critical stenosis of the left common femoral artery. With multiple stenoses in the SFA in the left side. Patient is still complaining of severe left foot pain. Patient was able to move her foot. She does have sensation as well. Past Medical History PAD, CAD, tobacco dependence, type 2 diabetes, Past Surgical History Prior endovascular revascularization of the left leg with angioplasty and stenting. Family History: Blood clots 19 CHILD FH: heart failure G8 MOTHER FH: leukemia G8 BROTHER FH: stroke 19 CHILD Social History Quit smoking approximately one month ago about impacted days ears. Allergies: Coded Allergies: Aspirin (Verified Allergy, Unknown, 02/12/22) Penicillins (Verified Allergy, Unknown, 02/12/22) Home Meds Active Scripts Clindamycin Hcl (Clindamycin Hcl) 300 Mg Cap, 1 CAP PO TID for 7 Days, #21 CAP 0 Refills Prov:SILVINO DE LEÓN CLINICAL RN LIAISON 08/06/24 Ibuprofen Micronized (Ibuprofen) 400 Mg Tab, 400 MG PO Q8HP PRN for 10 Days, #30 TAB 0 Refills Prov:SILVINO DE LEÓN CLINICAL RN LIAISON 08/06/24 Acetaminophen (Acetaminophen) 500 Mg Tab, 500 MG PO Q8HP PRN for 10 Days, #30 TAB 0 Refills Prov:SILVINO DE LEÓN Lashawn CLINICAL RN LIAISON 08/06/24 Cephalexin Monohydrate (Cephalexin) 500 Mg Cap, 1 CAP PO QID, #40 CAP Prov:MARISA MARRERO PA 07/25/24 Reported Medications Prednisone (Prednisone) 20 Mg Tab, 20 MG PO DAILY, MG 10/26/24 Meclizine HCl (Meclizine 25) 25 Mg Tab, 25 MG PO BIDPRN PRN for DIZZINESS, TAB 10/26/24 Gabapentin (Gabapentin) 300 Mg Cap, 1 CAP PO TID for 60 Days, #180 02/15/24 Metformin Hydrochloride (Metformin Hcl) 500 Mg Tab, 1 TAB PO BID for 90 Days, #180 02/15/24 Insulin Glargine (Basaglar Kwikpen) 100 Unit/Ml Inj, 15 UNIT SC DAILY for 70 Days, #12 02/15/24 Trazodone Hcl (Trazodone Hcl) 50 Mg Tab, 1 TAB PO DAILY for 30 Days, #30 02/15/24 Hydrocodone-Acetaminophen (Hydrocodone Bitartrate/AC 7.5-325 mg) 1 Tab Tab, 1 TAB PO Q8HR for 30 Days, #90 02/15/24 Furosemide (Furosemide) 40 Mg Tab, 1 TAB PO DAILY for 90 Days, #90 02/15/24 Metoprolol Succinate (Metoprolol Succinate Er) 25 Mg Tab, 1 TAB PO DAILY for 60 Days, #30 02/15/24 Atorvastatin Calcium (Lipitor) 40 Mg Tab, 1 TAB PO DAILY, #30 TAB 5 Refills 02/14/24 Empagliflozin (Jardiance) 25 Mg Tab, 25 MG PO DAILY, TAB 02/14/24 Pantoprazole Sodium Sesquihydr (Protonix) 40 Mg Tab, 40 MG PO DAILY, #30 TAB 02/14/24 Potassium Chloride (Klor-Con M20) 20 Meq Tab, 20 MEQ PO DAILY, TAB 02/14/24 Carvedilol (Carvedilol) 25 Mg Tab, 25 MG PO BID, TAB 02/14/24 Clopidogrel Bisulfate (Plavix) 75 Mg Tab, 75 MG PO DAILY, TAB 02/14/24 Nifedipine (Nifedipine Er) 60 Mg Tab, 60 MG PO DAILY, TAB 02/14/24 Current Medications Current Medications Medications (Trade) Dose Ordered Sig/Marni Route PRN Reason Start Time Stop Time Status Last Admin Clopidogrel Bisulfate (Plavix) 75 mg DAILY PO 10/28/24 10:00 10/28/24 11:05 Heparin Sodium/ Dextrose 250 ml @ 7 mls/hr Q24H IV 10/28/24 13:15 10/28/24 13:16 DC Heparin Sodium/ Dextrose 250 ml @ 7 mls/hr Q24H IV 10/28/24 20:00 10/29/24 02:36 DC 10/28/24 20:43 Heparin Sodium/ Dextrose 250 ml @ 9 mls/hr Q24H IV 10/29/24 02:45 10/29/24 02:42 Review of Systems Systems reviewed otherwise negative other was in the HPI. Vital Signs Vital Signs Date Time Temp Pulse Resp B/P (MAP) Pulse Ox O2 Delivery O2 Flow Rate FiO2 10/29/24 05:00 98.2 81 18 124/68 (86) 75 98.2 10/28/24 20:00 Room Air* 0 21 Physical Exam Head eyes ears nose and throat exam eyes are nonicteric conjunctiva was pink neck was supple no JVD no lymphadenopathy no carotid bruits lungs are clear to auscultation heart was regular rate and rhythm abdomen was soft nontender with no pulsatile abdominal masses or bruits lower extremities palpable femoral pulse on the right side nonpalpable femoral pulse on the left side weakly palpable pedal pulse in the right nonpalpable pedal pulse in the left. She does have a ulceration on the tip of her 1st toe as well as aspect of her left foot. She does have sensation of her feet her foot is painful to the touch. She is able to move her toes. Labs/Diagnostic Data Labs Test 10/29/24 05:13 10/29/24 01:57 10/27/24 17:30 10/27/24 05:52 Range/Units POC Glucose 91 70-106 mg/dl White Blood Count 6.3 4.4-10.8 10^3/uL Red Blood Count 4.83 4.0-5.20 10^6/uL Hemoglobin 15.7 12.2-16.2 g/dL Hematocrit 47.5 H 36.0-46.0 % Mean Corpuscular Volume 98.2 80.0-100.0 fL Mean Corpuscular Hemoglobin 32.5 H 28.0-32.0 pg Mean Corpuscular Hemoglobin Concent 33.1 32.0-36.0 g/dL Red Cell Distribution Width 15.7 H 11.8-14.3 % Platelet Count 198 140-450 10^3/uL Mean Platelet Volume 9.3 6.9-10.8 fL Neutrophils (%) (Auto) 69.5 37.0-80.0 % Lymphocytes (%) (Auto) 20.4 10.0-50.0 % Monocytes (%) (Auto) 9.4 0.0-12.0 % Eosinophils (%) (Auto) 0.4 0.0-7.0 % Basophils (%) (Auto) 0.3 0.0-2.0 % Neutrophils # (Auto) 4.4 1.6-8.6 10 ^3/uL Lymphocytes # (Auto) 1.3 0.4-5.4 10 ^3/uL Monocytes # (Auto) 0.6 0-1.3 10 ^3/uL Eosinophils # (Auto) 0 0-0.8 10 ^3/uL Basophils # (Auto) 0 0-0.2 10 ^3/uL Nucleated Red Blood Cells 0.1 % Prothrombin Time 10.9 9.3-11.8 sec Prothrombin Time INR 1.03 0.9-1.15 Activated Partial Thromboplast Time 36.7 H 24.5-34.5 SEC Sodium Level 139 136-145 mmol/L Potassium Level 4.2 3.5-5.1 mmol/L Chloride Level 106 98-107 mmol/L Carbon Dioxide Level 23 20-31 mmol/L Anion Gap 10 5-15 Blood Urea Nitrogen 7 L 9-23 mg/dL Creatinine 0.71 0.550-1.02 mg/dL Glomerular Filtration Rate Calc 88 >90 mL/min BUN/Creatinine Ratio 9.9 L 10.0-20.0 Serum Glucose 96 74-106 mg/dL Calcium Level 9.2 8.7-10.4 mg/dL Total Bilirubin 0.6 0.2-1.0 mg/dL Aspartate Amino Transferase (AST) 13 13-40 U/L Alanine Aminotransferase (ALT) < 9 7-40 U/L Alkaline Phosphatase 110 46-116 U/L Total Protein 6.6 5.7-8.2 g/dL Albumin 4.0 3.2-4.8 g/dL Urine Color Light-yellow Yellow Urine Clarity Clear Clear Urine pH 5.5 5.0-9.0 Urine Specific [place] 1.039 H 1.001-1.035 Urine Protein Trace H Negative Urine Ketones 1+ H Negative Urine Blood 2+ H Negative /uL Urine Nitrite Negative Negative Urine Bilirubin Negative Negative Urine Urobilinogen Normal Negative mg/dL Urine Leukocyte Esterase Negative Negative /uL Urine RBC 92 0 - 4 /hpf Urine Microscopic WBC 7 H 0-5 /HPF Urine Squamous Epithelial Cells Few <5 /hpf Urine Bacteria None seen None Seen /hpf Urine Glucose 4+ H Normal mg/dL Hemoglobin A1c 9.7 H <5.7 % A1C Triglycerides Level 302 H < 150 mg/dL Cholesterol Level 244 H < 200 mg/dL LDL Cholesterol 145 H < 100 mg/dL HDL Cholesterol 45 40-59 mg/dL Hepatitis B Surface Antigen Negative Negative Hepatitis C Antibody Negative Negative Test 10/26/24 12:10 Range/Units Magnesium Level 2.3 1.6-2.6 mg/dL Lipase 39 12-53 U/L PROCEDURE: CT angiographic images were obtained of the 31.57 lower extremity. Coronal and sagittal reconstructions were created. FINDINGS: The aorta and the mesenteric vessels appear patent with moderate atherosclerotic calcifications visualized. The bilateral iliac arteries are patent with moderate atherosclerotic calcifications. Left: Common femoral artery: Moderate to severe stenosis of the left [employer] with atherosclerotic calcifications. Superficial femoral artery: Moderate stenosis of the left SFA with atherosclerotic calcifications. Distal left SFA stent is patent with stenosis seen proximally at the edge. Profunda artery: Mild to moderate stenosis with atherosclerotic calcifications. Popliteal artery: Patent with atherosclerotic calcifications. Anterior tibial artery: Patent with atherosclerotic calcifications. Posterior tibial artery: Patent with atherosclerotic calcifications. Peroneal artery: Patent with atherosclerotic calcifications. Right: The partially visualized right superficial femoral artery stent appears patent. No focal bone abnormality is demonstrated. Regional muscle and subcutaneous tissues appear unremarkable. There is severe colonic diverticulosis. Calcified fibroids are visualized. A partial knee arthroplasty is visualized and appears intact and in good alignment. IMPRESSION: There is moderate to severe stenosis of the left common femoral artery, moderate stenosis of the left superficial femoral artery and stenosis of the left super ficial femoral artery stent although all appear patent. There is 3 vessel runoff to the left foot. In the setting of foot ischemia a angiogram is indicated in this setting. Severe colonic diverticulosis. Assessment 79-year-old female with critical limb ischemia left leg. She has a high-grade stenosis of the left, from artery we will require left common femoral endarterectomy. We will need to have medical clearance/cardiac clearance. We will plan on performing surgery October 30, 2024. Plan/Recommendation 79-year-old female with critical limb ischemia left leg. She has a high-grade stenosis of the left, from artery we will require left common femoral endarterectomy. We will need to have medical clearance/cardiac clearance. We will plan on performing surgery October 30, 2024. Plan discussed with: Patient HEATHER FARFAN Jr., MD Oct 29, 2024 06:49
[2024-10-29 10:45] LABS: Prothrombin Time 19.8 sec (9.3-11.8)
[2024-10-29 10:48] LABS: Partial Thromboplastin Time 107.4 SEC (24.5-34.5)
--- NOTE | 2024-10-29 11:17 | CONS ---
Pharmacy Clinical Information: Heparin per pharmacy spoke to THAIS Hinojosa regarding heparin dose change Current dose: 900units/hr Current aPTT: 107.4 on 10/29/24 @0954 Bolus: No Hold infusion for 1hr: yes Decrease to 600 units/hour THAIS Hinojosa read back new dose 600units/hr JONATHAN WHITTINGTON PHARMACIST Oct 29, 2024 11:17
--- NOTE | 2024-10-29 12:43 | DVHPN2 ---
Progress Note Date Seen: Oct 29, 2024 Medical Necessity Reason Pt with a Central, PICC or Fol: No Subjective Other Systems: pt seen with RN Objective vital signs Vital Sign Date Time Temp Pulse Resp B/P (MAP) Pulse Ox O2 Delivery O2 Flow Rate FiO2 10/29/24 12:03 97 18 132/47 10/29/24 08:59 97.6 97 97.6 10/29/24 08:00 Room Air* 0 21 Total Intake and Output 10/28/24 10/28/24 10/29/24 15:00 23:00 07:00 Intake Total 0 ml 300 ml Output Total 675 ml Balance 0 ml -375 ml medications Current Medications Medications Dose Ordered Sig/Marni Route Start Time Stop Time Status Last Admin Dose Admin Acetaminophen 325 mg Q4HP PRN PO 10/26/24 19:30 Acetaminophen/ Hydrocodone Bitart 1 tab Q4HP PRN PO 10/26/24 19:30 10/29/24 05:37 1 TAB Temazepam 15 mg QHSP PRN PO 10/26/24 19:30 Ondansetron HCl 4 mg Q4HP PRN IV 10/26/24 19:30 10/28/24 13:45 4 MG Docusate Sodium 100 mg BIDPRN PRN PO 10/26/24 19:30 Nitroglycerin 0.4 mg Q5MINP PRN SL 10/26/24 19:30 Morphine Sulfate 2 mg Q30M PRN IV 10/26/24 19:30 Sodium Chloride 1,000 ml @ 75 mls/hr [id number] IV 10/26/24 19:45 10/29/24 07:15 75 MLS/HR Diagnostic Test (Pha) 1 strip ACHS 10/26/24 22:00 10/29/24 11:47 1 STRIP Insulin Human Regular ACHS SC 10/26/24 22:00 10/27/24 00:00 3 UNITS Dextrose 50 ml UD PRN IV 10/26/24 19:45 Insulin Glargine 7 units HS SC 10/26/24 22:00 10/27/24 21:36 7 UNITS Doxycycline Monohydrate 100 mg BID PO 10/26/24 22:00 10/29/24 09:37 100 MG Hydromorphone HCl 0.5 mg Q2HPRN PRN IV 10/26/24 19:45 10/29/24 08:26 0.5 MG Clopidogrel Bisulfate 75 mg DAILY PO 10/28/24 10:00 10/29/24 09:37 75 MG Atorvastatin Calcium 40 mg HS PO 10/27/24 22:00 10/28/24 21:02 40 MG Morphine Sulfate 4 mg Q4HPRN PRN IV 10/27/24 12:45 10/29/24 12:03 4 MG Hydralazine HCl 25 mg Q4HPRN PRN PO 10/27/24 22:30 10/28/24 11:32 25 MG Heparin Sodium/ Dextrose 250 ml @ 6 mls/hr Q24H IV 10/29/24 12:00 10/29/24 12:05 6 MLS/HR Examination: GENERAL:Abnormal, HEENT:Abnormal, LUNGS:Abnormal, CVS:Abnormal, ABDOMEN:Abnormal laboratory and microbiology Laboratory Tests 10/29/24 01:57 Test 10/29/24 01:57 Range/Units Serum Glucose 96 74-106 mg/dL Problem List/Assessment/Plan Problem List/Assessment/Plan SEVERE PAD NON HEALING ULCER HTN CAD S/P PCI HL OBESITY CHRONIC PAIN S/P ANGIO LLE 90-95% [employer] ANALYST LESION TYPICALLY BEST TREATED WITH SURGICAL ENDARTERECTOMY LLE DIFFUSE SFA 80% DISESASE AND MID TO DISTAL RCA ISR 80%--SURGICAL BYPASS OR PT A ENDO OPTION RLE HAS A 99% ISR LESION IN MID SFA THAT NEEDS CORPORATE TRAVEL AGENT WITH DCB AT LATER DATE D/W DR ROGER pt has severe htn and very bad chronic back pain making procedure much more challenging and the need for high dose narcotics ef 60% on echo, reviewed her C with cad s/p pci to rca with ostial stent placed in sever calcific vessel pt intermediate risk for cv complications and should proceed pt continues to smoke and has some asa allergy so unsure if she was even taking anti platelet for the past year which is not good , non compliant pt started plavix here pt is aware of severe cad and risk of tissue/ limb loss will need further intervention in future, her pain is so poorly controlled in the back limiting our options d/w pt and RN Plan discussed with: Patient My Orders My Orders Orders - ENRIKE SHEPHERD MD Procedure Category Date Status Time Post Cath Vital Signs LUX 10/28/24 In Process Q 15min 13:30 Post Cath Activity LUX 10/28/24 In Process Protocol 13:30 Cardiac DIET 10/28/24 Transmitted Diet-2gna,Lofat,Lochol Dinner Hold All Metformin [facility] 10/28/24 In Process For 48 Hour 13:30 Communication Order ORDERS 10/28/24 Transmitted 18:18 Heparin Per Pharmacy [facility] 10/28/24 In Process Protocol 19:35 Heparin Per Pharmacy [facility] 10/29/24 In Process Protocol 02:37 Heparin Per Pharmacy [facility] 10/29/24 In Process Protocol 11:12 Heparin Drip/D5w PHA 10/29/24 In Process 100units/Ml 12:00 PTPTT LAB 10/29/24 Logged 18:00 Dietary Evaluation Review Comments: 1. Juvcen 1 pk BID 2. Refer CDE on DC 3. Continue current POC Expected Outcomes/Goals: wound to improve FU 3-5 days Date of Service: Oct 29, 2024 Billing Provider: ENRIKE SHEPHERD MD Common Visit Codes: NOT BILLABLE ENRIKE SHEPHERD MD Oct 29, 2024 12:43
--- NOTE | 2024-10-29 13:17 | DVHPN2 ---
Progress Note - Dictate Date Seen: Oct 29, 2024 Medical Necessity Reason Pt with a Central, PICC or Fol: No Subjective Patient continues to note leg pain. vital signs Vital Sign Date Time Temp Pulse Resp B/P (MAP) Pulse Ox O2 Delivery O2 Flow Rate FiO2 10/29/24 12:55 97.6 91 19 132/47 (75) 97 97.6 10/29/24 08:00 Room Air* 0 21 Total Intake and Output 10/28/24 10/28/24 10/29/24 15:00 23:00 07:00 Intake Total 0 ml 300 ml Output Total 675 ml Balance 0 ml -375 ml medications Current Medications Medications Dose Ordered Sig/Marni Route Start Time Stop Time Status Last Admin Dose Admin Acetaminophen 325 mg Q4HP PRN PO 10/26/24 19:30 Acetaminophen/ Hydrocodone Bitart 1 tab Q4HP PRN PO 10/26/24 19:30 10/29/24 05:37 1 TAB Temazepam 15 mg QHSP PRN PO 10/26/24 19:30 Ondansetron HCl 4 mg Q4HP PRN IV 10/26/24 19:30 10/28/24 13:45 4 MG Docusate Sodium 100 mg BIDPRN PRN PO 10/26/24 19:30 Nitroglycerin 0.4 mg Q5MINP PRN SL 10/26/24 19:30 Morphine Sulfate 2 mg Q30M PRN IV 10/26/24 19:30 Sodium Chloride 1,000 ml @ 75 mls/hr [id number] IV 10/26/24 19:45 10/29/24 07:15 75 MLS/HR Diagnostic Test (Pha) 1 strip ACHS 10/26/24 22:00 10/29/24 11:47 1 STRIP Insulin Human Regular ACHS SC 10/26/24 22:00 10/27/24 00:00 3 UNITS Dextrose 50 ml UD PRN IV 10/26/24 19:45 Insulin Glargine 7 units HS SC 10/26/24 22:00 10/27/24 21:36 7 UNITS Doxycycline Monohydrate 100 mg BID PO 10/26/24 22:00 10/29/24 09:37 100 MG Hydromorphone HCl 0.5 mg Q2HPRN PRN IV 10/26/24 19:45 10/29/24 08:26 0.5 MG Clopidogrel Bisulfate 75 mg DAILY PO 10/28/24 10:00 10/29/24 09:37 75 MG Atorvastatin Calcium 40 mg HS PO 10/27/24 22:00 10/28/24 21:02 40 MG Morphine Sulfate 4 mg Q4HPRN PRN IV 10/27/24 12:45 10/29/24 12:03 4 MG Hydralazine HCl 25 mg Q4HPRN PRN PO 10/27/24 22:30 10/28/24 11:32 25 MG Heparin Sodium/ Dextrose 250 ml @ 6 mls/hr Q24H IV 10/29/24 12:00 10/29/24 12:05 6 MLS/HR objective General appearance: No acute distress Respiratory: Lungs clear to auscultation. No wheezing, crackles Cardiovascular: Regular rate and rhythm, no murmurs. LLE warm, tender to touch Abdomen: Soft, nondistended, nontender, bowel sounds present MSK: Normal range of motion. Neuro: Alert, no neurological deficits Psych: Appropriate mood and affect. laboratory and microbiology Laboratory Tests 10/29/24 01:57 Test 10/29/24 01:57 Range/Units Serum Glucose 96 74-106 mg/dL Assessment/Plan 1. Peripheral Limb Ischemia 2. Type 2 Diabetes Insulin Dependent 3. PAD 4. History of CAD 5. Tobacco Dependence - Dr. Quinones consulted for lower extremity angiogram - TTE ordered to evaluate for underlying CHF while on cilostazol given history of CAD - Heparin drip - Cilostazol 75 mg p.o. daily - Restart plavix per cardiology - Insulin sliding scale with glargine - Daily CBC and CMP -Pt s/p aniogram, recommending femoral endarectomy. Dr. Leyva consulted, plan for 10/30 after cardiac clearance. -Patient counseled on tobacco cessation -Doxycycline 100mg BID for diabetic ulcer - Full code Dietary Evaluation Review Comments: 1. Juvcen 1 pk BID 2. Refer CDE on DC 3. Continue current POC Expected Outcomes/Goals: wound to improve FU 3-5 days Plan discussed with: Patient KANA LAWRENCE Oct 29, 2024 13:17
[2024-10-29 18:53] LABS: INR 1.48 (0.9-1.15); Partial Thromboplastin Time 66.3 SEC (24.5-34.5); Prothrombin Time 15.1 sec (9.3-11.8)
[2024-10-29] MEDS: DOCUSATE SOD 100 MG CAP PO PRN (21:00)
[2024-10-30] VITALS (8 sets, daily range): BP systolic 106–176; BP diastolic 55–82; PULSE 61–109; RESP 18; TEMP 97–98; O2SAT 93–100
[2024-10-30 00:55] LABS: INR 1.03 (0.9-1.15); Partial Thromboplastin Time 55.5 SEC (24.5-34.5); Prothrombin Time 10.9 sec (9.3-11.8)
[2024-10-30 07:53] LABS: Basophils # (auto) 0 10 ^3/uL (0-0.2); Basophils % (auto) 0.5 % (0.0-2.0); Eosinophils # (auto) 0.1 10 ^3/uL (0-0.8); Eosinophils % (auto) 1.2 % (0.0-7.0); Hematocrit 48.5 % (36.0-46.0); Hemoglobin 15.9 g/dL (12.2-16.2); Lymphocytes # (auto) 1.6 10 ^3/uL (0.4-5.4); Mean Corpuscular Hemoglobin 32.3 pg (28.0-32.0); Mean Corpuscular Hgb Conc. 32.9 g/dL (32.0-36.0); Mean Corpuscular Volume 98.4 fL (80.0-100.0); Monocytes # (auto) 0.7 10 ^3/uL (0-1.3); Monocytes % (auto) 13.1 % (0.0-12.0); Neutrophils # (auto) 3.2 10 ^3/uL (1.6-8.6); Neutrophils % (auto) 57.2 % (37.0-80.0); Platelet Count (auto) 176 10^3/uL (140-450); Red Blood Cells 4.93 10^6/uL (4.0-5.20); Red Cell Distribution Width 15.5 % (11.8-14.3); White Blood Cell 5.7 10^3/uL (4.4-10.8)
[2024-10-30 08:04] LABS: Alanine Aminotransferase 13 U/L (7-40); Albumin 4.1 g/dL (3.2-4.8); Anion Gap 7 (5-15); Aspartate Aminotransferase 17 U/L (13-40); BUN/Creatinine Ratio 11.6 (10.0-20.0); Bilirubin, Total 0.6 mg/dL (0.2-1.0); Calcium 9.8 mg/dL (8.7-10.4); Carbon Dioxide 27 mmol/L (20-31); Potassium 3.7 mmol/L (3.5-5.1); Sodium 142 mmol/L (136-145)
[2024-10-30 08:05] LABS: Alkaline Phosphatase 116 U/L (46-116); Blood Urea Nitrogen 8 mg/dL (9-23); Chloride 108 mmol/L (98-107); Glucose 108 mg/dL (74-106)
[2024-10-30 08:15] LABS: INR 1.05 (0.9-1.15); Partial Thromboplastin Time 49.3 SEC (24.5-34.5); Prothrombin Time 11.1 sec (9.3-11.8)
--- NOTE | 2024-10-30 08:44 | CONS ---
Pharmacy Clinical Information: HEPARIN DRIP PER RX PROTOCOL TODAY 10/30 AT 07:18 aPTT = 49.3 CRUZ PLASCENCIA INCREASED HEPARIN DRIP RATE TO 800 UNITS/HR FROM 600 UNITS/HR AT 08:19 10/30 PER HEPARIN DRIP PROTOCOL NO BOLUS NEXT aPTT ORDERED TODAY 10/30 AT 14:30 DENIA Jeffers 4, 2025 08:44
[2024-10-30] MEDS: hydrALAZINE HCL 20 MG/ML VL IV PRN (12:22)
[2024-10-30] MEDS ORDERED: MIDAZOLAM HCL 2MG/2ML 2ml VIAL (1mg/ml) ONE (13:04)
[2024-10-30] MEDS ORDERED: LIDOCAINE 1% INJ PF 5ML AMP ONE (13:04)
[2024-10-30] MEDS ORDERED: METOCLOPRAMIDE HCL 5MG/ml INJ 2ml VIAL ONE (13:04)
[2024-10-30] MEDS ORDERED: fentaNYL CITRATE 100 MCG/2 ML VL ONE (13:04)
[2024-10-30] MEDS ORDERED: ONDANSETRON HCL 4 MG/2 ML VIAL ONE (13:04)
[2024-10-30] MEDS ORDERED: ETOMIDATE (2MG/ML) 20ML VIAL IV ONE (13:05)
[2024-10-30] MEDS: VANCOMYCIN HCL 1000 MG VL ONE (13:06)
[2024-10-30] MEDS ORDERED: HYDROmorphone HCL 2 MG/ML VL/or syr ONE (13:39)
--- NOTE | 2024-10-30 13:43 | DVHPN2 ---
Progress Note - Dictate Date Seen: Oct 30, 2024 Medical Necessity Reason Pt with a Central, PICC or Fol: No Subjective Patient continues to note leg pain. Unchanged from prior exams. vital signs Vital Sign Date Time Temp Pulse Resp B/P (MAP) Pulse Ox O2 Delivery O2 Flow Rate FiO2 10/30/24 12:22 176/82 10/30/24 09:10 75 16 10/30/24 09:00 97.0 96 97.0 10/30/24 08:00 Room Air* 0 21 Total Intake and Output 10/29/24 10/29/24 10/30/24 15:00 23:00 07:00 Intake Total 900 ml 400 ml Balance 900 ml 400 ml medications Current Medications Medications Dose Ordered Sig/Marni Route Start Time Stop Time Status Last Admin Dose Admin Acetaminophen 325 mg Q4HP PRN PO 10/26/24 19:30 Acetaminophen/ Hydrocodone Bitart 1 tab Q4HP PRN PO 10/26/24 19:30 10/29/24 05:37 1 TAB Temazepam 15 mg QHSP PRN PO 10/26/24 19:30 Ondansetron HCl 4 mg Q4HP PRN IV 10/26/24 19:30 10/30/24 06:23 4 MG Docusate Sodium 100 mg BIDPRN PRN PO 10/26/24 19:30 10/29/24 21:00 100 MG Nitroglycerin 0.4 mg Q5MINP PRN SL 10/26/24 19:30 Morphine Sulfate 2 mg Q30M PRN IV 10/26/24 19:30 Sodium Chloride 1,000 ml @ 75 mls/hr [id number] IV 10/26/24 19:45 10/30/24 03:45 75 MLS/HR Diagnostic Test (Pha) 1 strip ACHS 10/26/24 22:00 10/30/24 11:31 1 STRIP Insulin Human Regular ACHS SC 10/26/24 22:00 10/29/24 21:19 3 UNITS Dextrose 50 ml UD PRN IV 10/26/24 19:45 Insulin Glargine 7 units HS SC 10/26/24 22:00 10/29/24 21:19 7 UNITS Doxycycline Monohydrate 100 mg BID PO 10/26/24 22:00 10/29/24 21:01 100 MG Hydromorphone HCl 0.5 mg Q2HPRN PRN IV 10/26/24 19:45 10/30/24 03:36 0.5 MG Clopidogrel Bisulfate 75 mg DAILY PO 10/28/24 10:00 10/29/24 09:37 75 MG Atorvastatin Calcium 40 mg HS PO 10/27/24 22:00 10/29/24 21:01 40 MG Morphine Sulfate 4 mg Q4HPRN PRN IV 10/27/24 12:45 10/30/24 07:58 4 MG Hydralazine HCl 25 mg Q4HPRN PRN PO 10/27/24 22:30 10/29/24 17:59 25 MG Heparin Sodium/ Dextrose 250 ml @ 6 mls/hr Q24H IV 10/29/24 12:00 10/30/24 11:38 8 MLS/HR Hydralazine HCl 10 mg Q6HP PRN IV 10/30/24 12:00 10/30/24 12:22 10 MG objective General appearance: No acute distress Respiratory: Lungs clear to auscultation. No wheezing, crackles Cardiovascular: Regular rate and rhythm, no murmurs. LLE warm, tender to touch Abdomen: Soft, nondistended, nontender, bowel sounds present MSK: Normal range of motion. Neuro: Alert, no neurological deficits Psych: Appropriate mood and affect. laboratory and microbiology Laboratory Tests 10/30/24 07:18 Test 10/30/24 07:18 Range/Units Serum Glucose 108 H 74-106 mg/dL Assessment/Plan 1. Peripheral Limb Ischemia 2. Type 2 Diabetes Insulin Dependent 3. PAD 4. History of CAD 5. Tobacco Dependence - Dr. Quinones consulted for lower extremity angiogram - TTE ordered to evaluate for underlying CHF while on cilostazol given history of CAD. No CHF noted. - Heparin drip - Cilostazol 75 mg p.o. daily - Restart plavix per cardiology - Insulin sliding scale with glargine - Daily CBC and CMP -Pt s/p angiogram, recommending femoral endarterectomy. Dr. Leyva consulted, plan for 10/30. -Patient counseled on tobacco cessation -Doxycycline 100mg BID for diabetic ulcer - Full code Dietary Evaluation Review Comments: 1. Juvcen 1 pk BID 2. Refer CDE on DC 3. Continue current POC Expected Outcomes/Goals: wound to improve FU 3-5 days Plan discussed with: Patient KANA LAWRENCE DO Oct 30, 2024 13:43
[2024-10-30] MEDS: BUPIVACAINE HCL 0.25% P/F 10 ML VIAL ONE (13:48)
[2024-10-30] MEDS ORDERED: PHENYLEPHRINE HCL 10 MG/ML VL ONE (13:49)
[2024-10-30] MEDS: LIDOCAINE 1% HCL (LOCAL ANESTH.) INJ 20ML MDV ONE (13:49)
--- NOTE | 2024-10-30 15:45 | DVHOP2 ---
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 These include but are not limited to complications of anesthesia, postoperative infection, incomplete relief of symptoms, recurrence of symptoms, damage to blood vessels, nerves and tendons, deep venous thrombosis, pulmonary embolism and possible need for repeat surgery in the future. Estimated Blood Loss: 200 mL Findings: Total occlusion of the common femoral artery Indications for Surgery: Total occlusion left common femoral artery Name of Procedure Performed Left common femoral artery endarterectomy Procedure Details Procedure Details: Patient was identified in the preop hold area. He was consented to and preop by myself. He was brought back to the operating room placed the operating table in the supine position after adequate induction of anesthesia antibiotics and time-out the left leg and groin were prepped and draped in normal surgical fashion. A longitudinal incision was made over the left common femoral artery dissection was taken down to the left common femoral artery with Bovie cauterization using for hemostasis the left common femoral artery was then isolated and skeletonized proximally was taken up to the level of the inguinal ligament which had to be retracted to get to healthy left external iliac artery. At this point in time vessel loops were placed around the left external/common femoral artery. Dissection was taken down to the bifurcation of the profunda and SFA which were both isolated with vessel loops. There was a heavy burden of plaque between the all vessel loops involved. At this point in time 3000 units of heparin was given to the patient. All vessels were clamped with the vessel loops a arteriotomy was made proximally 5 cm long and the common femoral artery. The plaque was then removed. The debris was flushed out of the common femoral artery the endarterectomy extended to the common femoral artery which was also removed the plaque the SFA was also proximally removed the plaque. Whalen catheters were passed down both the profunda femoral artery and SFA no clot was noted there was good backbleeding noted. At this point in time all vessels and valve were flushed with heparinized saline a bovine pericardial patch was then brought up to the field and sewn to the artery as a patch angioplasty with five 0 Prolene suture. At the completion of the anastomosis vessels were room least of their clamps. And flow was restored this was confirmed with Doppler signal. There was several suture line blades that were repaired with interrupted five 0 Prolene suture. Once all bleeding had been controlled the wound was then irrigated out the deep layer was closed with 2-0 Vicryl sutures followed by dermal layer of 2-0 Vicryl sutures followed by skin closure with bridger. The sterile dressing was applied and sponge and needle counts were correct at the end of the procedure. Patient was brought to the PACU in a stable condition dictation complete. Specimen: Left common femoral plaque Condition Good Disposition pacu BERNARDO LEYVA Jr., MD Oct 30, 2024 15:45
[2024-10-30] MEDS: GELATIN 1 SPONGE SIZE 100 TOP ONE (17:39)
[2024-10-30] MEDS: THROMBIN (BOVINE) 5000 UNIT SOL VIAL ONE (17:39)
[2024-10-30] MEDS: HEPARIN SODIUM (PORCINE) 5000 UNITS/ML 1ML VIAL ONE (17:39)
[2024-10-31] VITALS (9 sets, daily range): BP systolic 114–160; BP diastolic 60–88; PULSE 70–105; RESP 16–20; TEMP 97.8–98.8; O2SAT 91–99
[2024-10-31 05:59] LABS: Basophils # (auto) 0 10 ^3/uL (0-0.2); Basophils % (auto) 0.3 % (0.0-2.0); Eosinophils # (auto) 0 10 ^3/uL (0-0.8); Eosinophils % (auto) 0.4 % (0.0-7.0); Hematocrit 41.1 % (36.0-46.0); Hemoglobin 13.6 g/dL (12.2-16.2); Lymphocytes # (auto) 1.2 10 ^3/uL (0.4-5.4); Lymphocytes % (auto) 13.2 % (10.0-50.0); Mean Corpuscular Hemoglobin 32.3 pg (28.0-32.0); Mean Corpuscular Hgb Conc. 33.1 g/dL (32.0-36.0); Mean Corpuscular Volume 97.7 fL (80.0-100.0); Monocytes % (auto) 11.9 % (0.0-12.0); Neutrophils # (auto) 6.5 10 ^3/uL (1.6-8.6); Neutrophils % (auto) 74.2 % (37.0-80.0); Nucleated Red Blood Cells % 0.1 %; Platelet Count (auto) 191 10^3/uL (140-450); Red Cell Distribution Width 15.7 % (11.8-14.3); White Blood Cell 8.8 10^3/uL (4.4-10.8)
[2024-10-31 06:20] LABS: Alanine Aminotransferase 13 U/L (7-40); Albumin 3.3 g/dL (3.2-4.8); Alkaline Phosphatase 92 U/L (46-116); Anion Gap 10 (5-15); Aspartate Aminotransferase 25 U/L (13-40); BUN/Creatinine Ratio 9.2 (10.0-20.0); Calcium 8.7 mg/dL (8.7-10.4); Carbon Dioxide 23 mmol/L (20-31); Potassium 3.6 mmol/L (3.5-5.1); Sodium 144 mmol/L (136-145)
[2024-10-31 06:21] LABS: Bilirubin, Total 0.6 mg/dL (0.2-1.0)
[2024-10-31 06:22] LABS: Blood Urea Nitrogen 8 mg/dL (9-23); Chloride 111 mmol/L (98-107); Glucose 121 mg/dL (74-106); Total Protein 5.7 g/dL (5.7-8.2)
--- NOTE | 2024-10-31 07:14 | DVHPN2 ---
Progress Note Date Seen: Oct 31, 2024 Medical Necessity Reason Pt with a Central, PICC or Fol: No Subjective Patient reports: No new complaints Review of Systems: HEENT:Normal, RESPIRATORY:Normal, GI:Normal Objective vital signs Vital Sign Date Time Temp Pulse Resp B/P (MAP) Pulse Ox O2 Delivery O2 Flow Rate FiO2 10/31/24 05:38 101 18 131/88 10/31/24 05:00 98.3 98 98.3 10/30/24 20:00 Room Air* 0 21 Total Intake and Output 10/30/24 10/30/24 10/31/24 15:00 23:00 07:00 Intake Total 100 ml 0 ml 400 ml Output Total 1150 ml Balance 100 ml 0 ml -750 ml medications Current Medications Medications Dose Ordered Sig/Marni Route Start Time Stop Time Status Last Admin Dose Admin Acetaminophen 325 mg Q4HP PRN PO 10/26/24 19:30 Acetaminophen/ Hydrocodone Bitart 1 tab Q4HP PRN PO 10/26/24 19:30 10/29/24 05:37 1 TAB Temazepam 15 mg QHSP PRN PO 10/26/24 19:30 Ondansetron HCl 4 mg Q4HP PRN IV 10/26/24 19:30 10/30/24 06:23 4 MG Docusate Sodium 100 mg BIDPRN PRN PO 10/26/24 19:30 10/30/24 21:41 100 MG Nitroglycerin 0.4 mg Q5MINP PRN SL 10/26/24 19:30 Morphine Sulfate 2 mg Q30M PRN IV 10/26/24 19:30 Sodium Chloride 1,000 ml @ 75 mls/hr [id number] IV 10/26/24 19:45 10/30/24 17:38 75 MLS/HR Diagnostic Test (Pha) 1 strip ACHS 10/26/24 22:00 10/31/24 05:43 1 STRIP Insulin Human Regular ACHS SC 10/26/24 22:00 10/29/24 21:19 3 UNITS Dextrose 50 ml UD PRN IV 10/26/24 19:45 Insulin Glargine 7 units HS SC 10/26/24 22:00 10/30/24 21:54 7 UNITS Doxycycline Monohydrate 100 mg BID PO 10/26/24 22:00 10/30/24 21:41 100 MG Hydromorphone HCl 0.5 mg Q2HPRN PRN IV 10/26/24 19:45 10/31/24 05:38 0.5 MG Clopidogrel Bisulfate 75 mg DAILY PO 10/28/24 10:00 10/29/24 09:37 75 MG Atorvastatin Calcium 40 mg HS PO 10/27/24 22:00 10/30/24 21:41 40 MG Morphine Sulfate 4 mg Q4HPRN PRN IV 10/27/24 12:45 10/30/24 07:58 4 MG Hydralazine HCl 25 mg Q4HPRN PRN PO 10/27/24 22:30 10/29/24 17:59 25 MG Hydralazine HCl 10 mg Q6HP PRN IV 10/30/24 12:00 10/30/24 12:22 10 MG Examination: GENERAL:Normal, LUNGS:Normal, CVS:Normal laboratory and microbiology Laboratory Tests 10/31/24 04:52 Test 10/31/24 04:52 Range/Units Serum Glucose 121 H 74-106 mg/dL Problem List/Assessment/Plan Problem List/Assessment/Plan 1) L LE critical ischemia s/p L femoral endarterectomy 2) PAD 3) DM 2 4) CAD 5) Tobacco use plan; patient underwent L common femoral endarterectomy yesterday with vascular surgery, doing well post-op, PT eval ordered, continue supportive care, dc planning home vs SNF tomorrow once cleared by vasc surgery, daily labs, will follow along Plan discussed with: Other (n) Dietary Evaluation Review Comments: 1. Juvcen 1 pk BID 2. Refer CDE on DC 3. Continue current POC Expected Outcomes/Goals: wound to improve FU 3-5 days ROSEY JORDAN MD Oct 31, 2024 07:14
--- NOTE | 2024-10-31 07:59 | DVHPN2 ---
Progress Note Date Seen: Oct 31, 2024 Has the PT tested + for MRSA If YES, has PT been informed?: No Medical Necessity Reason Pt with a Central, PICC or Fol: No The following are medically ne: Connelly Catheter Reason for connelly catheter: Strict I&O Subjective Patient reports: Feels better (left foot feels better able to move it more and improved sensation) Review of Systems: HEENT:Normal, CVS:Normal, RESPIRATORY:Normal, GI:Normal, :Normal, MSK:Normal, NEURO:Normal Objective vital signs Vital Sign Date Time Temp Pulse Resp B/P (MAP) Pulse Ox O2 Delivery O2 Flow Rate FiO2 10/31/24 06:08 92 18 130/81 10/31/24 05:00 98.3 98 98.3 10/30/24 20:00 Room Air* 0 21 Total Intake and Output 10/30/24 10/30/24 10/31/24 15:00 23:00 07:00 Intake Total 100 ml 0 ml 400 ml Output Total 1150 ml Balance 100 ml 0 ml -750 ml medications Current Medications Medications Dose Ordered Sig/Marni Route Start Time Stop Time Status Last Admin Dose Admin Acetaminophen 325 mg Q4HP PRN PO 10/26/24 19:30 Acetaminophen/ Hydrocodone Bitart 1 tab Q4HP PRN PO 10/26/24 19:30 10/29/24 05:37 1 TAB Temazepam 15 mg QHSP PRN PO 10/26/24 19:30 Ondansetron HCl 4 mg Q4HP PRN IV 10/26/24 19:30 10/30/24 06:23 4 MG Docusate Sodium 100 mg BIDPRN PRN PO 10/26/24 19:30 10/30/24 21:41 100 MG Nitroglycerin 0.4 mg Q5MINP PRN SL 10/26/24 19:30 Morphine Sulfate 2 mg Q30M PRN IV 10/26/24 19:30 Sodium Chloride 1,000 ml @ 75 mls/hr [id number] IV 10/26/24 19:45 10/30/24 17:38 75 MLS/HR Diagnostic Test (Pha) 1 strip ACHS 10/26/24 22:00 10/31/24 05:43 1 STRIP Insulin Human Regular ACHS SC 10/26/24 22:00 10/29/24 21:19 3 UNITS Dextrose 50 ml UD PRN IV 10/26/24 19:45 Insulin Glargine 7 units HS SC 10/26/24 22:00 10/30/24 21:54 7 UNITS Doxycycline Monohydrate 100 mg BID PO 10/26/24 22:00 10/30/24 21:41 100 MG Hydromorphone HCl 0.5 mg Q2HPRN PRN IV 10/26/24 19:45 10/31/24 05:38 0.5 MG Clopidogrel Bisulfate 75 mg DAILY PO 10/28/24 10:00 10/29/24 09:37 75 MG Atorvastatin Calcium 40 mg HS PO 10/27/24 22:00 10/30/24 21:41 40 MG Morphine Sulfate 4 mg Q4HPRN PRN IV 10/27/24 12:45 10/30/24 07:58 4 MG Hydralazine HCl 25 mg Q4HPRN PRN PO 10/27/24 22:30 10/29/24 17:59 25 MG Hydralazine HCl 10 mg Q6HP PRN IV 10/30/24 12:00 10/30/24 12:22 10 MG Examination: GENERAL:Normal, HEENT:Normal, NECK:Normal, LUNGS:Normal, CVS:Normal, ABDOMEN:Normal, MSK:Normal (incision cdi, left foot warm well perfused motor sensory intact) laboratory and microbiology Laboratory Tests 10/31/24 04:52 Test 10/31/24 04:52 Range/Units Serum Glucose 121 H 74-106 mg/dL Problem List/Assessment/Plan Problem List/Assessment/Plan Pod 1 s/p left VP [employer] endarterectomy oob d/c connelly PT sw for discharge planning resume all home medications. asa 81 mg po qd Plan discussed with: Patient Dietary Evaluation Review Comments: 1. Juvcen 1 pk BID 2. Refer CDE on DC 3. Continue current POC Expected Outcomes/Goals: wound to improve FU 3-5 days HEATHER FARFAN Jr., MD Oct 31, 2024 07:59
--- NOTE | 2024-10-31 14:56 | DVHDS2 ---
New Physician D'charge PN Admitting Diagnosis Admitting Diagnosis PAD Discharge Diagnosis L LE PAD s/p angioplasty of anterior/posterior tibial artery w/ vasc surgery Operations or Procedures L LE angioplasty Reason(s) For Hospitalization Surgery Hospital Course 79 F who comes to the ER for L LE pain. She had a CT angio L LE done which revealed occlusive PAD. She was seen by cardiology initially echo Ef was 60% and underwent L LE angiogram and was noted to have critical limb ischemia. She was maintained on a heparin gtt and was evaluated by vascular surgery who performed a L MESS COOK endarterectomy. Post operatively patient doing well. She was started on plavix and statin as per vascular surgery. She was evaluated by PT and was noted to be weak and in pain. Patient lives alone and this discussed with patients family who would like SNF placement for ongoing PT and pain management. Patient cleared by vascular surgery and [facility] to arrange for SNF bed and transport. Treatment Plan Discharge Condition of Discharge Good Disposition Residential Facility Discharge Instructions Diet: Cardiac 2g Na,low cholest Activity: No Restrictions, As Tolerated Medications: see med list Follow Up Care Follow Up/Referral: pcp vascular surgery Discharge Statement: "Patient was advised to return to the ER or call 911 if any headaches, dizziness, shortness of breath, chest pain, abdominal pain, bleeding, fevers, or worsening of medical condition. Patient was counseled about treatment plan, medications, possible side effects, patientverbalized understanding. All questions were answered to the best of my ability. This discharge took greater then 30 minutes in planning, reviewing documenta tion, counseling the patient, and discussing with other team members." ROSEY JORDAN MD Oct 31, 2024 14:56
[2024-11-01] VITALS (9 sets, daily range): BP systolic 103–165; BP diastolic 54–80; PULSE 61–112; RESP 14–22; TEMP 36.8; O2SAT 90–100
[2024-11-01 06:12] LABS: Basophils # (auto) 0 10 ^3/uL (0-0.2); Basophils % (auto) 0.2 % (0.0-2.0); Eosinophils # (auto) 0.1 10 ^3/uL (0-0.8); Eosinophils % (auto) 0.8 % (0.0-7.0); Hematocrit 40.1 % (36.0-46.0); Hemoglobin 13.3 g/dL (12.2-16.2); Lymphocytes # (auto) 1.5 10 ^3/uL (0.4-5.4); Lymphocytes % (auto) 18.4 % (10.0-50.0); Mean Corpuscular Hemoglobin 32.4 pg (28.0-32.0); Mean Corpuscular Hgb Conc. 33.2 g/dL (32.0-36.0); Mean Corpuscular Volume 97.7 fL (80.0-100.0); Monocytes # (auto) 1.1 10 ^3/uL (0-1.3); Monocytes % (auto) 13.9 % (0.0-12.0); Neutrophils # (auto) 5.3 10 ^3/uL (1.6-8.6); Neutrophils % (auto) 66.7 % (37.0-80.0); Nucleated Red Blood Cells % 0.2 %; Platelet Count (auto) 192 10^3/uL (140-450); Red Cell Distribution Width 15.7 % (11.8-14.3)
[2024-11-01 06:44] LABS: Alanine Aminotransferase 15 U/L (7-40); Albumin 3.3 g/dL (3.2-4.8); Alkaline Phosphatase 92 U/L (46-116); Anion Gap 8 (5-15); Aspartate Aminotransferase 24 U/L (13-40); BUN/Creatinine Ratio 16.7 (10.0-20.0); Bilirubin, Total 0.6 mg/dL (0.2-1.0); Blood Urea Nitrogen 11 mg/dL (9-23); Carbon Dioxide 26 mmol/L (20-31); Potassium 3.5 mmol/L (3.5-5.1); Sodium 143 mmol/L (136-145)
[2024-11-01 06:46] LABS: Calcium 8.7 mg/dL (8.7-10.4); Chloride 109 mmol/L (98-107); Glucose 107 mg/dL (74-106); Total Protein 5.4 g/dL (5.7-8.2)
== END 2024-11-01 17:40 | DRG 253 ==
LOC: ER 08:05 → OVERFLOW 19:19 → TELE-WESTW 19:24
PROVIDERS: ADMIT Student in an Organized Health Care Education/Training Program; ATTEND Student in an Organized Health Care Education/Training Program
PROC: B4101ZZ Fluoroscopy of Abdominal Aorta using Low Osmolar Contrast (ICD-10-PCS; principal; 2024-10-28)
PROC: B41F1ZZ Fluoroscopy of Right Lower Extremity Arteries using Low Osmolar Contrast (ICD-10-PCS; 2024-10-28)
PROC: B41G1ZZ Fluoroscopy of Left Lower Extremity Arteries using Low Osmolar Contrast (ICD-10-PCS; 2024-10-28)
PROC: 04CL0ZZ Extirpation of Matter from Left Femoral Artery, Open Approach (ICD-10-PCS; 2024-10-30)
PROC: 04UL0KZ Supplement Left Femoral Artery with Nonautologous Tissue Substitute, Open Approach (ICD-10-PCS; 2024-10-30)
DX: T82.856A Stenosis of peripheral vascular stent, initial encounter (principal); I74.3 Embolism and thrombosis of arteries of the lower extremities; E11.51 Type 2 diabetes mellitus with diabetic peripheral angiopathy without gangrene; E11.621 Type 2 diabetes mellitus with foot ulcer; L97.529 Non-pressure chronic ulcer of other part of left foot with unspecified severity; I25.10 Atherosclerotic heart disease of native coronary artery without angina pectoris; F17.210 Nicotine dependence, cigarettes, uncomplicated; I10 Essential (primary) hypertension; I70.222 Atherosclerosis of native arteries of extremities with rest pain, left leg; Z71.6 Tobacco abuse counseling; Z86.73 Personal history of transient ischemic attack (TIA), and cerebral infarction without residual deficits; Z98.61 Coronary angioplasty status; Z88.0 Allergy status to penicillin; Z88.3 Allergy status to other anti-infective agents; Z79.1 Long term (current) use of non-steroidal anti-inflammatories (NSAID); Z79.2 Long term (current) use of antibiotics; Z79.84 Long term (current) use of oral hypoglycemic drugs; Z79.4 Long term (current) use of insulin; Z79.899 Other long term (current) drug therapy; Z82.49 Family history of ischemic heart disease and other diseases of the circulatory system; Z82.3 Family history of stroke; Z80.6 Family history of leukemia; Y84.8 Other medical procedures as the cause of abnormal reaction of the patient, or of later complication, without mention of misadventure at the time of the procedure; Y92.89 Other specified places as the place of occurrence of the external cause
CPT/HCPCS: 36415; 71046; 73706; 80053; 80061; 81001; 82962; 83036; 83690; 83735; 85025; 85610; 85730; 86803; 86850; 86900; 86901; 87340; 93005; 93306; 93926; 96365; 96372; 97110; 97163; 99152; G0378; J1815; J2003; J2250; J2405; J3490; Q9967

== ENCOUNTER 2024-11-11 13:16 | Inpatient (IN) | payer OTHER, MEDICAID ==
[~2024-11-11] VITALS: Ht 162.6 cm; Wt 73.3 kg
[~2024-11-11 13:16] MED LIST changes: -CEPH500C PO; -CLIN1CAP70 PO; +MECL1TAB42 PO; -METO25TA93 PO; +PRED20TA2 PO
--- NOTE | 2024-11-11 13:26 | ED.PDOC ---
Musculoskeletal HPI Comments HPI: 79y F who presents to the ED via EMS for chief complaint of extremity pain - pt is resident at [facility] and pt had been complaining of L foot pain for the past 2 weeks and EMS was called - pt states she is diabetic and has wound on the L foot which had butch bandage applied but states she has been having increasing pain to the L foot for the past 2 weeks - pt states she was at 3 days prior and had lower extremity US which ruled out clot but showed pt had peripheral vascular disease - pt was discharged from on 10/31/24 with the following discharge summary: - 79 F who comes to the ER for L LE pain. She had a CT angio L LE done which revealed occlusive PAD. She was seen by cardiology initially echo Ef was 60% and underwent L LE angiogram and was noted to have critical limb ischemia. She was maintained on a heparin gtt and was evaluated by vascular surgery who performed a L METAL FENCE ERECTOR endarterectomy. Post operatively patient doing well. She was started on Plavix and statin as per vascular surgery. She was evaluated by PT and was noted to be weak and in pain. Patient lives alone and this discussed with patients family who would like SNF placement for ongoing PT and pain management. Patient cleared by vascular surgery and [facility] to arrange for SNF bed and transport. Past Medical history: HTN, DM, OA, dependence on supplemental 2L 02, CVA on Plavix, limb ischemia, peripheral autonomic neuropathy, atherosclerotic heart disease, periperal vascular disease, dysphagia, muscle weakness, autonomic neuropathy, atherosclerosis of [place] arteries of extremities, abnormalities of gait and mobility, oropharyngeal phase Past Surgical history: knee replacement, rotator cuff bilateral, Medications: Plavix, Allergies: penicillin, aspirin Social History: denies ETOH, denies tobacco use, denies drug use HPI: Poor Historian. Patient is on Plavix. Patient has history of severe peripheral vascular disease and ischemic limb and stenosis of vessels in the lower extremity. REVIEW OF SYSTEMS: CONSTITUTIONAL: Denies acute: fever, diaphoresis, chills, HEAD: Denies acute: headache, photophobia Eyes: Denies acute: Double vision, vision loss, eye pain, eye discharge. EARS: Denies acute: tinnitus, hearing loss, ear discharge, ear pain, THROAT: Denies acute: sore throat, swelling, difficulty swallowing , pain with swallowing, change in voice. NECK: Denies acute: neck pain, neck swelling, stiff neck. HEART: Denies acute : chest pain, palpitations, LUNGS: Denies acute: SOB, wheezing, cough, hemoptysis ABDOMEN: Denies acute: abdominal pain, Nausea, Vomiting, diarrhea, melena , hematemesis, hematochezia SKIN: Denies acute: lesions, itchiness. EXTREMITIES: Denies acute: calf pain, numbness, tingling, weakness, Denies acute: Low back pain. Neuro: Denies acute: focal neurological deficit, motor or sensory focal neurological deficit, tremors, seizure like activity, confusion, dizziness, change in mental status, loss of bowel or bladder function, cauda equina like symptoms. : Denies acute: dysuria, hematuria, flank pain, increase in urinary frequency. PSYCH: Denies acute: hallucination, suicidal ideation, homicidal ideation. FEMALE: Denies acute: abnormal vaginal bleeding, foul odor, unusual discharge. PHYSICAL EXAM: General: ---[id number]-----acute distress, awake and alert. Patient stated that she did not know that the her facility was sending her to the ED. Head: normocephalic, atraumatic. Neck: supple, trachea is midline, no swelling. Throat: Normal phonation. Eyes:, no erythema, no purulent discharge, no proptosis, no icterus. Heart: regular rate, regular rhythm, no significant murmur appreciated. Lungs: no apparent respiratory distress, Able to speak in full sentences. No wheezing, no rhonchi, no crackles. No stridors Clear to auscultation bilaterally. Abdomen: non tender to palpation, non distended, soft, no guarding, no rebound, + bowel sounds. Neuro: Awake, Alert, oriented to name, self, situation, follows commands GCS=15. Speech is normal. Skin: no petechia, no purpura, no cyanosis, non-pale, not jaundice. Lower extremities: --no - Pitting edema no deformity, no focal swelling, no calf TTP Evaluation of the area of complaint. Left foot: Noted erythematous toes. History of nail removal of the great toe. Noted left lateral diabetic foot u lcer with wound dressing on it. Minimal puffiness and swelling in the foot. Patient has very poor circulation of the affected extremity status post what sounds like femoral bypass few weeks ago. Patient is not currently on any antibiotics for her cellulitis. . Makes eye contact. moves all four extremities. Face: no apparent facial droop. ED COURSE: DISCLAIMER: This medical document was created using an electronic medical record system with voice recognition software and computerized dictation system. Although this document has been carefully reviewed, there might still be some phonetic and typographical errors. Occasional wrong-word or "sound-alike" substitutions may have occurred due to the inherent limitations of voice recognition software. These areas are purely typographical due to imperfections of the software prog melissa and do not reflect any compromise in the patient's medical care. Please read the chart carefully and recognize, using context, where these substitutions have occurred. Time Seen by MD: 14:44 Primary Care Provider: LACHELLE Reviewed Notes: Medications, Allergies Allergies: Coded Allergies: Aspirin (Verified Allergy, Unknown, 02/12/22) Penicillins (Verified Allergy, Unknown, 02/12/22) Home Meds Active Scripts Ibuprofen Micronized (Ibuprofen) 400 Mg Tab, 400 MG PO Q8HP PRN for 10 Days, #30 TAB 0 Refills Prov:SILVINO DE LEÓN FITNESS TECHNICIAN 08/06/24 Acetaminophen (Acetaminophen) 500 Mg Tab, 500 MG PO Q8HP PRN for 10 Days, #30 TAB 0 Refills Prov:SILVINO DE LEÓN FITNESS TECHNICIAN 08/06/24 Reported Medications Prednisone (Prednisone) 20 Mg Tab, 20 MG PO DAILY, MG 10/26/24 Meclizine HCl (Meclizine 25) 25 Mg Tab, 25 MG PO BIDPRN PRN for DIZZINESS, TAB 10/26/24 Gabapentin (Gabapentin) 300 Mg Cap, 1 CAP PO TID for 60 Days, #180 02/15/24 Metformin Hydrochloride (Metformin Hcl) 500 Mg Tab, 1 TAB PO BID for 90 Days, #180 02/15/24 Insulin Glargine (Basaglar Kwikpen) 100 Unit/Ml Inj, 15 UNIT SC DAILY for 70 Days, #12 02/15/24 Trazodone Hcl (Trazodone Hcl) 50 Mg Tab, 1 TAB PO DAILY for 30 Days, #30 02/15/24 Hydrocodone-Acetaminophen (Hydrocodone Bitartrate/AC 7.5-325 mg) 1 Tab Tab, 1 TAB PO Q8HR for 30 Days, #90 02/15/24 Furosemide (Furosemide) 40 Mg Tab, 1 TAB PO DAILY for 90 Days, #90 02/15/24 Atorvastatin Calcium (Lipitor) 40 Mg Tab, 1 TAB PO DAILY, #30 TAB 5 Refills 02/14/24 Empagliflozin (Jardiance) 25 Mg Tab, 25 MG PO DAILY, TAB 02/14/24 Pantoprazole Sodium Sesquihydr (Protonix) 40 Mg Tab, 40 MG PO DAILY, #30 TAB 02/14/24 Potassium Chloride (Klor-Con M20) 20 Meq Tab, 20 MEQ PO DAILY, TAB 02/14/24 Carvedilol (Carvedilol) 25 Mg Tab, 25 MG PO BID, TAB 02/14/24 Clopidogrel Bisulfate (Plavix) 75 Mg Tab, 75 MG PO DAILY, TAB 02/14/24 Nifedipine (Nifedipine Er) 60 Mg Tab, 60 MG PO DAILY, TAB 02/14/24 Information Source: Patient, Emergency Med Personnel Mode of Arrival: EMS Past Medical History PAST MEDICAL HISTORY: Arthritis, DM, TIA Surgical History: PTCA POLITICAL ANTHROPOLOGIST History: Denies all POLITICAL ANTHROPOLOGIST Hx Family History Family History: Reviewed,noncontributory to illness, Unknown Social History Smoker: Non-Smoker Alcohol: Denies ETOH Use Drugs: Denies Drug Use Lives In: Home Was a procedure done? Was a procedure done?: No Differential Diagnosis EXT Differential Diagnosis: Other (Leg swellingDdx include but not limited to DVT, ischemic limb, pitting edema, volume overload, CHF, cellulitis, hematoma, compartment syndrome, dependent edema, venous stasis.) X-Ray, Labs, Meds, VS Vital Signs Date Time Temp Pulse Resp B/P (MAP) Pulse Ox O2 Delivery O2 Flow Rate FiO2 11/11/24 13:45 98.2 62 16 146/72 (96) 98 98.2 Lab Test 11/11/24 13:45 Range/Units White Blood Count 6.2 4.4-10.8 10^3/uL Red Blood Count 4.26 4.0-5.20 10^6/uL Hemoglobin 13.7 12.2-16.2 g/dL Hematocrit 41.7 36.0-46.0 % Mean Corpuscular Volume 98.0 80.0-100.0 fL Mean Corpuscular Hemoglobin 32.2 H 28.0-32.0 pg Mean Corpuscular Hemoglobin Concent 32.8 32.0-36.0 g/dL Red Cell Distribution Width 15.1 H 11.8-14.3 % Platelet Count 374 140-450 10^3/uL Mean Platelet Volume 8.6 6.9-10.8 fL Neutrophils (%) (Auto) 65.4 37.0-80.0 % Lymphocytes (%) (Auto) 24.6 10.0-50.0 % Monocytes (%) (Auto) 6.7 0.0-12.0 % Eosinophils (%) (Auto) 2.5 0.0-7.0 % Basophils (%) (Auto) 0.8 0.0-2.0 % Neutrophils # (Auto) 4.1 1.6-8.6 10 ^3/uL Lymphocytes # (Auto) 1.5 0.4-5.4 10 ^3/uL Monocytes # (Auto) 0.4 0-1.3 10 ^3/uL Eosinophils # (Auto) 0.2 0-0.8 10 ^3/uL Basophils # (Auto) 0.1 0-0.2 10 ^3/uL Nucleated Red Blood Cells 0.1 % Erythrocyte Sedimentation Rate 52 H 0-20 mm/hr Sodium Level 142 136-145 mmol/L Potassium Level 4.3 3.5-5.1 mmol/L Chloride Level 105 98-107 mmol/L Carbon Dioxide Level 30 20-31 mmol/L Anion Gap 7 5-15 Blood Urea Nitrogen 9 9-23 mg/dL Creatinine 0.75 0.550-1.02 mg/dL Glomerular Filtration Rate Calc 82 >90 mL/min BUN/Creatinine Ratio 12.0 10.0-20.0 Serum Glucose 240 H 74-106 mg/dL Lactic Acid Level 1.8 0.4-2.0 mmol/L Calcium Level 9.8 8.7-10.4 mg/dL Total Bilirubin 0.2 0.2-1.0 mg/dL Aspartate Amino Transferase (AST) 12 <34 U/L Alanine Aminotransferase (ALT) 10 7-40 U/L Alkaline Phosphatase 135 H 46-116 U/L C-Reactive Protein High Sensitivity 1.85 H <1.0 mg/dL B-Type Natriuretic Peptide 186.39 0-100 pg/mL Total Protein 7.0 5.7-8.2 g/dL Albumin 4.0 3.2-4.8 g/dL Current Medications Medications (Trade) Dose Ordered Sig/Marni Route Start Time Stop Time Status Last Admin Clindamycin Phosphate 50 ml @ 50 mls/hr ONCE ONCE IV 11/11/24 15:00 11/11/24 15:59 DC 11/11/24 17:49 [place] [address] Ph: [phone] DIAGNOSTIC IMAGING Diagnostic Imaging Report : [id number] Signed PATIENT: PREETHI GARLADN ACCT: [id number] UNIT: [id number] : 1945 LOC: ER ROOM / BED: / AGE / SEX: 79 / F ADM STATUS: REG ER SERVICE 31 ORDERING PHYSICIAN: BRADLY GARCIA DO PROCEDURE(s): LLDVT - LT Lower DVT REASON: PAIN SWELLING DM ULCER ORDER NUMBER(s): [id number], ACCESSION NUMBER(s): [id number] Technique: Real-time ultrasound imaging, with color Doppler and compression of the left common femoral vein, femoral vein, greater saphenous vein, and popliteal vein. Indication: PAIN SWELLING DM ULCER Comparison: None Findings: There is normal compressibility and flow augmentation in all of the imaged deep veins. There are no filling defects. Impression: No evidence of DVT in the left lower extremity ATED BY: SAIRA FARRIS MD DICTATED DATE/TIME: 11/11/241449 SIGNED BY: SAIRA FARRIS MD SIGNED DATE/TIME: 11/11/241449 CC: [address] [address] Ph: [phone] DIAGNOSTIC IMAGING Diagnostic Imaging Report : [id number] Signed PATIENT: PREETHI GARLAND ACCT: [id number] UNIT: [id number] : 1945 LOC: ER ROOM / BED: / AGE / SEX: 79 / F ADM STATUS: REG ER SERVICE 31 ORDERING PHYSICIAN: BRADLY GARCIA DO PROCEDURE(s): LLEAD - Lt Low Ext Art Duplex REASON: H/O ISCHEMIC LIMB, DM ULCER, PVC ORDER NUMBER(s): [id number], ACCESSION NUMBER(s): [id number] Indication: H/O ISCHEMIC LIMB, DM ULCER, PVC Technique: Real- time ultrasound images of the lower extremity with grayscale, color, and spectral wave Doppler. Comparison: US LT LOW EXT ART DUPLEX on DOS: 10/26/24 Findings: Monophasic waveforms throughout the left lower extremity. Extensive atherosclerotic disease. Left SFA stent. Peak systolic velocities are as follows (in cm/s): Left: Common femoral artery: 67 Profunda femoris: 72 Proximal superficial femoral: 22 Mid superficial femoral artery: 42 Distal superficial femoral artery: 92 Popliteal artery: 32 Posterior tibial artery: 40 Dorsalis pedis artery: 12 Impression: Findings of advanced/ severe left lower extremity peripheral arterial disease. Severely decreased velocity within the proximal SFA consistent with high-grade stenosis. Severely decreased velocity in the left dorsalis pedis artery consistent with high-grade stenosis. ATED BY: SAIRA FARRIS MD DICTATED DATE/TIME: 11/11/24 144 SIGNED BY: SAIRA FARRIS MD SIGNED DATE/TIME: 11/11/249 CC: Time of 1ST Reevaluation: 15:47 (The case was discussed with the admitting team (HPI, physical exam, labs and diagnostic tests that were available at the time of disposition, ED course, treatment plan) on the phone. They agreed to evaluate the patient to their service and assume care of this patient from this point forward. --- Nuha. He said he will most likely discharge the patient to SNF. Please see his evaluation notes and final disposition. He said he is very familiar with this patient from before.) Reevaluation 1ST: Unchanged Patient Education/Counseling: Diagnosis, Treatment Family Education/Counseling: No Family Present Comments Patient presented with the above HPI.---leg pain and swelling and redness---workup was initiated. patient was found with the above mentioned diagnosis. the following medications were ordered: please refer to order lists of meds and tests obtained by myself Dr. Garcia. Patient ED course and VS have been stabilized. Patient has been reassessed in the ED and remained in a stable condition. Pertinent incidental findings were discussed with the patient and/or family. Patient/family voices understanding and is agreeable with plan. Patient has been observed in the ED adequate length of time to insure improvement/stability. Escalation of care considered: Consideration of escalation to observation or admission Patient was ADMITTED to the medicine team for further evaluation and treatment of their presentation. All the reports of any imaging studies that were ordered by myself were reviewed by myself. Departure 1 Departure Time of Disposition: 14:55 Impression: Primary Impression: Cellulitis of left foot Additional Impressions: Diabetic ulcer of left foot Arterial stenosis Disposition: ADMITTED INPATIENT Admit to: Tele Condition: Guarded Additional Instructions: Discharged With: Self Critical Care Note Critical Care Time?: Yes (35 min-critical care time only) I personally scribed for BRADLY GARCIA DO ([email or web address]) on 11/11/24 at 13:26. Electronically submitted by Earle Donaldson ([employer]). I personally scribed for BRADLY GARCIA DO ([email or web address]) on 11/11/24 at 14:44. Electronically submitted by Earle Donaldson ([employer]). I personally scribed for BRADLY GARCIA DO ([email or web address]) on 11/11/24 at 14:46. Electronically submitted by Earle Donaldson ([employer]). I personally scribed for BRADLY GARCIA DO ([email or web address]) on 11/11/24 at 14:49. Electronically submitted by Earle Donaldson ([employer]). I personally scribed for BRADLY GARCIA DO ([email or web address]) on 11/11/24 at 15:08. Electronically submitted by Earle Donaldson ([employer]). I personally scribed for BRADLY GARCIA DO ([email or web address]) on 11/11/24 at 19:14. Electronically submitted by Earle Donaldson ([employer]). BRADLY GARCIA DO Nov 11, 2024 13:26
[2024-11-11 14:11] LABS: Basophils # (auto) 0.1 10 ^3/uL (0-0.2); Basophils % (auto) 0.8 % (0.0-2.0); Eosinophils # (auto) 0.2 10 ^3/uL (0-0.8); Eosinophils % (auto) 2.5 % (0.0-7.0); Hematocrit 41.7 % (36.0-46.0); Hemoglobin 13.7 g/dL (12.2-16.2); Lymphocytes # (auto) 1.5 10 ^3/uL (0.4-5.4); Lymphocytes % (auto) 24.6 % (10.0-50.0); Mean Corpuscular Hemoglobin 32.2 pg (28.0-32.0); Mean Corpuscular Hgb Conc. 32.8 g/dL (32.0-36.0); Monocytes # (auto) 0.4 10 ^3/uL (0-1.3); Monocytes % (auto) 6.7 % (0.0-12.0); Neutrophils # (auto) 4.1 10 ^3/uL (1.6-8.6); Neutrophils % (auto) 65.4 % (37.0-80.0); Nucleated Red Blood Cells % 0.1 %; Platelet Count (auto) 374 10^3/uL (140-450); Red Blood Cells 4.26 10^6/uL (4.0-5.20); Red Cell Distribution Width 15.1 % (11.8-14.3); White Blood Cell 6.2 10^3/uL (4.4-10.8)
[2024-11-11 14:23] LABS: Alanine Aminotransferase 10 U/L (7-40); Anion Gap 7 (5-15); Aspartate Aminotransferase 12 U/L (<34); Calcium 9.8 mg/dL (8.7-10.4); Carbon Dioxide 30 mmol/L (20-31); Chloride 105 mmol/L (98-107); Potassium 4.3 mmol/L (3.5-5.1); Sodium 142 mmol/L (136-145)
[2024-11-11 14:24] LABS: Alkaline Phosphatase 135 U/L (46-116); Bilirubin, Total 0.2 mg/dL (0.2-1.0); Blood Urea Nitrogen 9 mg/dL (9-23); Glucose 240 mg/dL (74-106)
[2024-11-11 14:44] LABS: CRP High Sensitivity 1.85 mg/dL (<1.0)
--- NOTE | 2024-11-11 14:52 | DVH ---
Technique: Real-time ultrasound imaging, with color Doppler and compression of the left common femor al vein, femoral vein, greater saphenous vein, and popliteal vein. Indication: PAIN SWELLING DM ULCER Comparison: None Findings: There is normal compressibility and flow augmentation in all of the imaged deep veins. There are no f illing defects. Impression: No evidence of DVT in the left lower extremity
--- NOTE | 2024-11-11 14:52 | DVH ---
Indication: H/O ISCHEMIC LIMB, DM ULCER, PVC Technique: Real- time ultrasound images of the lower extremity with grayscale, color, and spectral wave Doppler. Comparison: US LT LOW EXT ART DUPLEX on DOS: 10/26/24 Findings: Monophasic waveforms throughout the left lower extremity. Extensive atherosclerotic disease. Left SFA stent. Peak systolic velocities are as follows (in cm/s): Left: Common femoral artery: 67 Profunda femoris: 72 Proximal superficial femoral: 22 Mid superficial femoral artery: 42 Distal superficial femoral artery: 92 Popliteal artery: 32 Posterior tibial artery: 40 Dorsalis pedis artery: 12 Impression: Findings of advanced/ severe left lower extremity peripheral arterial disease. Severely decreased velocity within the proximal SFA consistent with high-grade stenosis. Severely decreased velocity in the left dorsalis pedis artery consistent with high-grade stenosis.
[2024-11-11 15:12] LABS: Erythrocyte Sedimentation Rate 52 mm/hr (0-20)
[2024-11-11] MEDS ORDERED: NITROGLYCERIN 0.4 MG SL TAB SL PRN (17:15)
[2024-11-11] MEDS ORDERED: TEMAZEPAM 15 MG CAP PO PRN (17:15)
[2024-11-11] MEDS ORDERED: ACETAMINOPHEN 325 MG TAB PO PRN (17:15)
[2024-11-11] MEDS ORDERED: MORPHINE SULFATE INJ 2 MG/ml SYRG IV PRN (17:15)
[2024-11-11] MEDS ORDERED: HYDROcodone-ACET 5/325MG TAB PO PRN (17:15)
[2024-11-11] MEDS ORDERED: HYDROmorphone HCL 2 MG/ML VL/or syr IV PRN (17:30)
[2024-11-11] MEDS ORDERED: DEXTROSE (50%) 50ML SYRG IV PRN (17:30)
--- NOTE | 2024-11-11 17:33 | DVHHP2 ---
Admitting Diagnosis: PAD with Claudication History of Present Illness HPI Patient is a 79 year old female with PMH of T2DM, PAD with recent left femoral endarectomy, diabetic left foot ulcer, tobacco dependence who presents from SNF due to persistent pain of her left foot. Patient recently underwent left femoral endarectomy but notes her pain has not improved. She is noted to be in tears stating her pain does not respond to pain medications. Vitals noted to be wnl. Labs within normal limits. No sign of sepsis. Discussed plan of care with vascular surgeon Dr. Leyva who recommended lower extremity angiogram. Home Meds Active Scripts Ibuprofen Micronized (Ibuprofen) 400 Mg Tab, 400 MG PO Q8HP PRN for 10 Days, #30 TAB 0 Refills Prov:SILVINO DE LEÓN SEAFOOD AND SERVICE MEAT MANAGER 08/06/24 Acetaminophen (Acetaminophen) 500 Mg Tab, 500 MG PO Q8HP PRN for 10 Days, #30 TAB 0 Refills Prov:SILVINO DE LEÓN SEAFOOD AND SERVICE MEAT MANAGER 08/06/24 Reported Medications Prednisone (Prednisone) 20 Mg Tab, 20 MG PO DAILY, MG 10/26/24 Meclizine HCl (Meclizine 25) 25 Mg Tab, 25 MG PO BIDPRN PRN for DIZZINESS, TAB 10/26/24 Gabapentin (Gabapentin) 300 Mg Cap, 1 CAP PO TID for 60 Days, #180 02/15/24 Metformin Hydrochloride (Metformin Hcl) 500 Mg Tab, 1 TAB PO BID for 90 Days, #180 02/15/24 Insulin Glargine (Basaglar Kwikpen) 100 Unit/Ml Inj, 15 UNIT SC DAILY for 70 Days, #12 02/15/24 Trazodone Hcl (Trazodone Hcl) 50 Mg Tab, 1 TAB PO DAILY for 30 Days, #30 02/15/24 Hydrocodone-Acetaminophen (Hydrocodone Bitartrate/AC 7.5-325 mg) 1 Tab Tab, 1 TAB PO Q8HR for 30 Days, #90 02/15/24 Furosemide (Furosemide) 40 Mg Tab, 1 TAB PO DAILY for 90 Days, #90 02/15/24 Atorvastatin Calcium (Lipitor) 40 Mg Tab, 1 TAB PO DAILY, #30 TAB 5 Refills 02/14/24 Empagliflozin (Jardiance) 25 Mg Tab, 25 MG PO DAILY, TAB 02/14/24 Pantoprazole Sodium Sesquihydr (Protonix) 40 Mg Tab, 40 MG PO DAILY, #30 TAB 02/14/24 Potassium Chloride (Klor-Con M20) 20 Meq Tab, 20 MEQ PO DAILY, TAB 02/14/24 Carvedilol (Carvedilol) 25 Mg Tab, 25 MG PO BID, TAB 02/14/24 Clopidogrel Bisulfate (Plavix) 75 Mg Tab, 75 MG PO DAILY, TAB 02/14/24 Nifedipine (Nifedipine Er) 60 Mg Tab, 60 MG PO DAILY, TAB 02/14/24 Past Medical History Cardiac: HTN, Other (PAD) Pulmonary: COPD Patient Family History: Blood clots 19 CHILD FH: heart failure G8 MOTHER FH: leukemia G8 BROTHER FH: stroke 19 CHILD Review of Systems Constitutional: No symptom reported Cardiovascular: No symptom reported Musculoskeletal: Leg pain H&P Exam Vital Signs Vital Signs Date Time Temp Pulse Resp B/P (MAP) Pulse Ox O2 Delivery O2 Flow Rate FiO2 11/11/24 13:45 98.2 62 16 146/72 (96) 98 98.2 General Appeara: Well developed, Mild distress Pulmonary/Respiratory: Normal inspection, Normal breath sounds Cardiovascular/Chest: Normal inspection, Regular rate Peripheral Pulses: 1+ dorsalis pedis (L) Labs/Xrays Labs Test 11/11/24 13:45 Range/Units White Blood Count 6.2 4.4-10.8 10^3/uL Red Blood Count 4.26 4.0-5.20 10^6/uL Hemoglobin 13.7 12.2-16.2 g/dL Hematocrit 41.7 36.0-46.0 % Mean Corpuscular Volume 98.0 80.0-100.0 fL Mean Corpuscular Hemoglobin 32.2 H 28.0-32.0 pg Mean Corpuscular Hemoglobin Concent 32.8 32.0-36.0 g/dL Red Cell Distribution Width 15.1 H 11.8-14.3 % Platelet Count 374 140-450 10^3/uL Mean Platelet Volume 8.6 6.9-10.8 fL Neutrophils (%) (Auto) 65.4 37.0-80.0 % Lymphocytes (%) (Auto) 24.6 10.0-50.0 % Monocytes (%) (Auto) 6.7 0.0-12.0 % Eosinophils (%) (Auto) 2.5 0.0-7.0 % Basophils (%) (Auto) 0.8 0.0-2.0 % Neutrophils # (Auto) 4.1 1.6-8.6 10 ^3/uL Lymphocytes # (Auto) 1.5 0.4-5.4 10 ^3/uL Monocytes # (Auto) 0.4 0-1.3 10 ^3/uL Eosinophils # (Auto) 0.2 0-0.8 10 ^3/uL Basophils # (Auto) 0.1 0-0.2 10 ^3/uL Nucleated Red Blood Cells 0.1 % Erythrocyte Sedimentation Rate 52 H 0-20 mm/hr Sodium Level 142 136-145 mmol/L Potassium Level 4.3 3.5-5.1 mmol/L Chloride Level 105 98-107 mmol/L Carbon Dioxide Level 30 20-31 mmol/L Anion Gap 7 5-15 Blood Urea Nitrogen 9 9-23 mg/dL Creatinine 0.75 0.550-1.02 mg/dL Glomerular Filtration Rate Calc 82 >90 mL/min BUN/Creatinine Ratio 12.0 10.0-20.0 Serum Glucose 240 H 74-106 mg/dL Lactic Acid Level 1.8 0.4-2.0 mmol/L Calcium Level 9.8 8.7-10.4 mg/dL Total Bilirubin 0.2 0.2-1.0 mg/dL Aspartate Amino Transferase (AST) 12 <34 U/L Alanine Aminotransferase (ALT) 10 7-40 U/L Alkaline Phosphatase 135 H 46-116 U/L C-Reactive Protein High Sensitivity 1.85 H <1.0 mg/dL B-Type Natriuretic Peptide 186.39 0-100 pg/mL Total Protein 7.0 5.7-8.2 g/dL Albumin 4.0 3.2-4.8 g/dL Assessment/Plan Primary Diagnosis 1. PAD with persistent claudication 2. Type 2 DM 3. Tobacco Dependence 4. Diabetic Foot Ulcer Plan -Admit to telemetry -NPO after breakfast 11/12 for lower ext angiogram -Vascular surgery, Dr. Leyva consulted. No heparin gtt advised at this time. Plavix restarted. Atorvastatin restarted -Glargine 10U bedtime with ICS -Pain medications per JUL -Full Code -Daily CBC and BMP Plan discussed with: Patient KANA LAWRENCE DO Nov 11, 2024 17:33
[2024-11-11] MEDS: MORPHINE SULFATE 4 MG/ML SYR/VIAL IV ONE (17:38)
[2024-11-11] MEDS: CLINDAMYCIN 600MG IV 50 ML IV ONE (17:49)
[2024-11-11] MEDS: ONDANSETRON HCL 4 MG/2 ML VIAL IV PRN (17:49)
[2024-11-11] MEDS: MORPHINE SULFATE 4 MG/ML SYR/VIAL IV PRN (17:50)
[2024-11-11 21:40] VITALS: RESP 16; O2SAT 96
[2024-11-11 21:54] VITALS: O2SAT 99
[2024-11-11] MEDS: GABAPENTIN 100 MG CAP PO SCH (22:20)
[2024-11-11] MEDS: SULFAMETHOX W/TRIMETH(800/160MG) DS TAB PO SCH (22:20)
[2024-11-11] MEDS: ACCU-CHEK COMFORT CURVE STRIP VI SCH (22:21)
[2024-11-11] MEDS: InsuLIN REG 1unit/0.01ml Soln (100units/ml) SC SCH (22:52)
[2024-11-11] MEDS: INSULIN LANTUS (GLARGINE) 1 /0.01ml (100units/ml) SC SCH (22:53)
[2024-11-11] MEDS ORDERED: hydrALAZINE HCL 20 MG/ML VL IV PRN (23:45)
[2024-11-12] VITALS (33 sets, daily range): BP systolic 51–160; BP diastolic 22–86; PULSE 60–124; RESP 15–22; TEMP 95.3–98.5; O2SAT 40–100
[2024-11-12] MEDS: NIFEdipine ER 30 MG TAB PO ONE (00:36)
[2024-11-12] MEDS: InsuLIN REG 1unit/0.01ml Soln (100units/ml) SC SCH (06:20)
--- NOTE | 2024-11-12 06:53 | DVHCONRES ---
Date Seen: Nov 12, 2024 Resident Creating Document: HEATHER FARFAN Jr., MD Referring Physician er Reason for Consultation left leg pain History of Present Illness Patient is a 79 year old female with PMH of T2DM, PAD with recent left femoral endartectomy, diabetic left foot ulcer, tobacco dependence who presents from SNF due to persistent pain of her left foot.post surgery ptatinet but notes her pain has not improved. Vitals noted to be wnl. Labs within normal limits. No sign of sepsis. ultrasound demonstrates patent left furnace maintenance and severe diffuse sfa and tibial disease. Past Medical History htn, pad, dm Past Surgical History left common femoral endartectomy Family History: Blood clots 19 CHILD FH: heart failure G8 MOTHER FH: leukemia G8 BROTHER FH: stroke 19 CHILD Social History none Allergies: Coded Allergies: Aspirin (Verified Allergy, Unknown, 02/12/22) Penicillins (Verified Allergy, Unknown, 02/12/22) Home Meds Active Scripts Ibuprofen Micronized (Ibuprofen) 400 Mg Tab, 400 MG PO Q8HP PRN for 10 Days, #30 TAB 0 Refills Prov:SILVINO DE LEÓN NURSE CASE MANAGEMENT 08/06/24 Acetaminophen (Acetaminophen) 500 Mg Tab, 500 MG PO Q8HP PRN for 10 Days, #30 TAB 0 Refills Prov:SILVINO DE LEÓN NURSE CASE MANAGEMENT 08/06/24 Reported Medications Prednisone (Prednisone) 20 Mg Tab, 20 MG PO DAILY, MG 10/26/24 Meclizine HCl (Meclizine 25) 25 Mg Tab, 25 MG PO BIDPRN PRN for DIZZINESS, TAB 10/26/24 Gabapentin (Gabapentin) 300 Mg Cap, 1 CAP PO TID for 60 Days, #180 02/15/24 Metformin Hydrochloride (Metformin Hcl) 500 Mg Tab, 1 TAB PO BID for 90 Days, #180 02/15/24 Insulin Glargine (Basaglar Kwikpen) 100 Unit/Ml Inj, 15 UNIT SC DAILY for 70 Days, #12 02/15/24 Trazodone Hcl (Trazodone Hcl) 50 Mg Tab, 1 TAB PO DAILY for 30 Days, #30 02/15/24 Hydrocodone-Acetaminophen (Hydrocodone Bitartrate/AC 7.5-325 mg) 1 Tab Tab, 1 TAB PO Q8HR for 30 Days, #90 02/15/24 Furosemide (Furosemide) 40 Mg Tab, 1 TAB PO DAILY for 90 Days, #90 02/15/24 Atorvastatin Calcium (Lipitor) 40 Mg Tab, 1 TAB PO DAILY, #30 TAB 5 Refills 02/14/24 Empagliflozin (Jardiance) 25 Mg Tab, 25 MG PO DAILY, TAB 02/14/24 Pantoprazole Sodium Sesquihydr (Protonix) 40 Mg Tab, 40 MG PO DAILY, #30 TAB 02/14/24 Potassium Chloride (Klor-Con M20) 20 Meq Tab, 20 MEQ PO DAILY, TAB 02/14/24 Carvedilol (Carvedilol) 25 Mg Tab, 25 MG PO BID, TAB 02/14/24 Clopidogrel Bisulfate (Plavix) 75 Mg Tab, 75 MG PO DAILY, TAB 02/14/24 Nifedipine (Nifedipine Er) 60 Mg Tab, 60 MG PO DAILY, TAB 02/14/24 Current Medications Current Medications Medications (Trade) Dose Ordered Sig/Marni Route PRN Reason Start Time Stop Time Status Last Admin Acetaminophen (Tylenol Tablet) 325 mg Q4HP PRN PO MILD PAIN (1-3 PAIN SCALE) 11/11/24 17:15 Acetaminophen/ Hydrocodone Bitart ([place] 5/325MG Tab) 1 tab Q4HP PRN PO MODERATE PAIN (4-6 PAIN SCALE) 11/11/24 17:15 Temazepam (Restoril) 15 mg QHSP PRN PO FOR INSOMNIA 11/11/24 17:15 Ondansetron HCl (Zofran) 4 mg Q4HP PRN IV NAUSEA / VOMITING 11/11/24 17:15 11/11/24 17:49 Morphine Sulfate 4 mg Q4HPRN PRN IV SEVERE PAIN (7-10 PAIN SCALE) 11/11/24 17:15 11/12/24 06:15 Nitroglycerin (Ntrostat Sublingual) 0.4 mg Q5MINP PRN SL FOR CHEST PAIN 11/11/24 17:15 Morphine Sulfate 2 mg Q30M PRN IV FOR CHEST PAIN 11/11/24 17:15 Clopidogrel Bisulfate (Plavix) 75 mg DAILY PO 11/12/24 10:00 Gabapentin (Neurontin Capsule) 100 mg TID PO 11/11/24 22:00 11/12/24 06:14 Trazodone HCl (Desyrel) 50 mg HS PO 11/12/24 22:00 Atorvastatin Calcium (Lipitor) 40 mg HS PO 11/12/24 10:00 Nifedipine (Procardia Xl (Time-Release)) 60 mg DAILY PO 11/12/24 10:00 Hydromorphone HCl (Dilaudid Injection) 1 mg Q2HP PRN IV Breakthrough pain 11/11/24 17:30 Insulin Glargine (Lantus) 10 units HS SC 11/11/24 22:00 11/11/24 22:53 Diagnostic Test (Pha) (Accu-Chek Comfort Curve T) 1 strip ACHS 11/11/24 22:00 11/12/24 06:20 Insulin Human Regular (InsuLIN R) HS SC 11/11/24 22:00 11/11/24 22:52 Insulin Human Regular (InsuLIN R) AC SC 11/12/24 07:00 Dextrose 50 ml UD PRN IV Blood Sugar LESS THAN 60 11/11/24 17:30 Trimethoprim/ Sulfamethoxazole (Bactrim Ds Tablet) 1 tab BID PO 11/11/24 22:00 11/11/24 22:20 Hydralazine HCl (Apresoline Injection) 10 mg Q6HP PRN IV SBP>160 11/11/24 23:45 Review of Systems all systems reviewed other harrell negative Vital Signs Vital Signs Date Time Temp Pulse Resp B/P (MAP) Pulse Ox O2 Delivery O2 Flow Rate FiO2 11/12/24 06:15 68 16 133/86 11/12/24 05:00 97.6 99 97.6 11/11/24 21:54 Nasal Cannula* 4 36 Physical Exam left groin incision cdi, pedal pulses non palpable. motor sensory grossly int act. Labs/Diagnostic Data Labs Test 11/12/24 05:52 11/11/24 13:45 Range/Units POC Glucose 102 70-106 mg/dl White Blood Count 6.2 4.4-10.8 10^3/uL Red Blood Count 4.26 4.0-5.20 10^6/uL Hemoglobin 13.7 12.2-16.2 g/dL Hematocrit 41.7 36.0-46.0 % Mean Corpuscular Volume 98.0 80.0-100.0 fL Mean Corpuscular Hemoglobin 32.2 H 28.0-32.0 pg Mean Corpuscular Hemoglobin Concent 32.8 32.0-36.0 g/dL Red Cell Distribution Width 15.1 H 11.8-14.3 % Platelet Count 374 140-450 10^3/uL Mean Platelet Volume 8.6 6.9-10.8 fL Neutrophils (%) (Auto) 65.4 37.0-80.0 % Lymphocytes (%) (Auto) 24.6 10.0-50.0 % Monocytes (%) (Auto) 6.7 0.0-12.0 % Eosinophils (%) (Auto) 2.5 0.0-7.0 % Basophils (%) (Auto) 0.8 0.0-2.0 % Neutrophils # (Auto) 4.1 1.6-8.6 10 ^3/uL Lymphocytes # (Auto) 1.5 0.4-5.4 10 ^3/uL Monocytes # (Auto) 0.4 0-1.3 10 ^3/uL Eosinophils # (Auto) 0.2 0-0.8 10 ^3/uL Basophils # (Auto) 0.1 0-0.2 10 ^3/uL Nucleated Red Blood Cells 0.1 % Erythrocyte Sedimentation Rate 52 H 0-20 mm/hr Sodium Level 142 136-145 mmol/L Potassium Level 4.3 3.5-5.1 mmol/L Chloride Level 105 98-107 mmol/L Carbon Dioxide Level 30 20-31 mmol/L Anion Gap 7 5-15 Blood Urea Nitrogen 9 9-23 mg/dL Creatinine 0.75 0.550-1.02 mg/dL Glomerular Filtration Rate Calc 82 >90 mL/min BUN/Creatinine Ratio 12.0 10.0-20.0 Serum Glucose 240 H 74-106 mg/dL Lactic Acid Level 1.8 0.4-2.0 mmol/L Calcium Level 9.8 8.7-10.4 mg/dL Total Bilirubin 0.2 0.2-1.0 mg/dL Aspartate Amino Transferase (AST) 12 <34 U/L Alanine Aminotransferase (ALT) 10 7-40 U/L Alkaline Phosphatase 135 H 46-116 U/L C-Reactive Protein High Sensitivity 1.85 H <1.0 mg/dL B-Type Natriuretic Peptide 186.39 0-100 pg/mL Total Protein 7.0 5.7-8.2 g/dL Albumin 4.0 3.2-4.8 g/dL Technique: Real- time ultrasound images of the lower extremity with grayscale, color, and spectral wave Doppler. Comparison: US LT LOW EXT ART DUPLEX on DOS: 10/26/24 Findings: Monophasic waveforms throughout the left lower extremity. Extensive atherosclerotic disease. Left SFA stent. Peak systolic velocities are as follows (in cm/s): Left: Common femoral artery: 67 Profunda femoris: 72 Proximal superficial femoral: 22 Mid superficial femoral artery: 42 Distal superficial femoral artery: 92 Popliteal artery: 32 Posterior tibial artery: 40 Dorsalis pedis artery: 12 Impression: Findings of advanced/ severe left lower extremity peripheral arterial disease. Severely decreased velocity within the proximal SFA consistent with high-grade stenosis. Severely decreased velocity in the left dorsalis pedis artery consistent with high-grade stenosis. Assessment severe left pvd plan left leg angiogram with possible endovascular revascularization of sfa in near future cont. anti. platlet therapy Plan/Recommendation severe left pvd plan left leg angiogram with possible endovascular revascularization of sfa in near future cont. anti. platlet therapy Plan discussed with: Patient HEATHER FARFAN Jr., MD Nov 12, 2024 06:53
[2024-11-12 07:27] LABS: Basophils # (auto) 0 10 ^3/uL (0-0.2); Basophils % (auto) 0.4 % (0.0-2.0); Eosinophils # (auto) 0.1 10 ^3/uL (0-0.8); Eosinophils % (auto) 2.7 % (0.0-7.0); Hemoglobin 13.1 g/dL (12.2-16.2); Lymphocytes # (auto) 1.4 10 ^3/uL (0.4-5.4); Mean Corpuscular Hemoglobin 31.9 pg (28.0-32.0); Mean Corpuscular Hgb Conc. 32.7 g/dL (32.0-36.0); Mean Corpuscular Volume 97.5 fL (80.0-100.0); Monocytes # (auto) 0.5 10 ^3/uL (0-1.3); Monocytes % (auto) 8.6 % (0.0-12.0); Neutrophils # (auto) 3.4 10 ^3/uL (1.6-8.6); Neutrophils % (auto) 62.3 % (37.0-80.0); Nucleated Red Blood Cells % 0.2 %; Platelet Count (auto) 360 10^3/uL (140-450); Red Cell Distribution Width 15.4 % (11.8-14.3); White Blood Cell 5.4 10^3/uL (4.4-10.8)
[2024-11-12 07:42] LABS: Albumin 3.6 g/dL (3.2-4.8); Alkaline Phosphatase 109 U/L (46-116); Anion Gap 9 (5-15); Aspartate Aminotransferase 11 U/L (<34); BUN/Creatinine Ratio 14.8 (10.0-20.0); Carbon Dioxide 29 mmol/L (20-31); Chloride 105 mmol/L (98-107); Glucose 96 mg/dL (74-106); Potassium 3.9 mmol/L (3.5-5.1); Sodium 143 mmol/L (136-145); Total Protein 6.3 g/dL (5.7-8.2)
[2024-11-12 07:44] LABS: Alanine Aminotransferase < 9 U/L (7-40); Bilirubin, Total 0.2 mg/dL (0.2-1.0); Blood Urea Nitrogen 9 mg/dL (9-23)
[2024-11-12] MEDS: NIFEdipine ER 30 MG TAB PO SCH (09:32)
[2024-11-12] MEDS: CLOPIDOGREL BISULFATE 75 MG TAB PO SCH (09:32)
[2024-11-12] MEDS ORDERED: ATORVASTATIN 20 MG TAB PO SCH (10:00)
--- NOTE | 2024-11-12 11:38 | DVHPN2 ---
Progress Note - Dictate Date Seen: Nov 12, 2024 Medical Necessity Reason Pt with a Central, PICC or Fol: No vital signs Vital Sign Date Time Temp Pulse Resp B/P (MAP) Pulse Ox O2 Delivery O2 Flow Rate FiO2 11/12/24 09:32 121/63 11/12/24 08:56 97.8 89 18 98 97.8 11/11/24 21:54 Nasal Cannula* 4 36 Total Intake and Output 11/11/24 11/11/24 11/12/24 15:00 23:00 07:00 Intake Total 50 ml 180 ml Output Total 400 ml Balance 50 ml -220 ml medications Current Medications Medications Dose Ordered Sig/Marni Route Start Time Stop Time Status Last Admin Dose Admin Acetaminophen 325 mg Q4HP PRN PO 11/11/24 17:15 Acetaminophen/ Hydrocodone Bitart 1 tab Q4HP PRN PO 11/11/24 17:15 Temazepam 15 mg QHSP PRN PO 11/11/24 17:15 Ondansetron HCl 4 mg Q4HP PRN IV 11/11/24 17:15 11/11/24 17:49 4 MG Morphine Sulfate 4 mg Q4HPRN PRN IV 11/11/24 17:15 11/12/24 06:15 4 MG Nitroglycerin 0.4 mg Q5MINP PRN SL 11/11/24 17:15 Morphine Sulfate 2 mg Q30M PRN IV 11/11/24 17:15 Clopidogrel Bisulfate 75 mg DAILY PO 11/12/24 10:00 Gabapentin 100 mg TID PO 11/11/24 22:00 11/12/24 06:14 100 MG Trazodone HCl 50 mg HS PO 11/12/24 22:00 Nifedipine 60 mg DAILY PO 11/12/24 10:00 11/12/24 09:32 60 MG Hydromorphone HCl 1 mg Q2HP PRN IV 11/11/24 17:30 Insulin Glargine 10 units HS SC 11/11/24 22:00 11/11/24 22:53 10 UNITS Diagnostic Test (Pha) 1 strip ACHS 11/11/24 22:00 11/12/24 11:29 1 STRIP Insulin Human Regular HS SC 11/11/24 22:00 11/11/24 22:52 4 UNITS Insulin Human Regular AC SC 11/12/24 07:00 Dextrose 50 ml UD PRN IV 11/11/24 17:30 Trimethoprim/ Sulfamethoxazole 1 tab BID PO 11/11/24 22:00 11/12/24 09:32 1 TAB Hydralazine HCl 10 mg Q6HP PRN IV 11/11/24 23:45 Atorvastatin Calcium 40 mg HS PO 11/12/24 22:00 objective General appearance: No acute distress Respiratory: Lungs clear to auscultation. No wheezing, crackles Cardiovascular: Regular rate and rhythm, no murmurs. No edema Abdomen: Soft, nondistended, nontender, bowel sounds present MSK: Normal range of motion. Skin: Decreased dorsalis pedis pulse left Neuro: Alert, no neurological deficits Psych: Appropriate mood and affect. laboratory and microbiology Laboratory Tests 11/12/24 05:44 Test 11/12/24 05:44 Range/Units Serum Glucose 96 74-106 mg/dL Assessment/Plan 1. PAD with persistent claudication 2. Type 2 DM 3. Tobacco Dependence 4. Diabetic Foot Ulcer Plan -NPO after breakfast 11/12 for lower ext angiogram -Vascular surgery, Dr. Leyva consulted. No heparin gtt advised at this time. Plavix restarted. Atorvastatin restarted -Glargine 10U bedtime with ICS -Nifedipine and hydralazine for hypertension -Bactrim DS for DM foot, likely non-healing due to PAD -Pain medications per JUL -Full Code -Daily CBC and BMP Plan discussed with: Patient REUBEN LAWRENCEJuan Bui DO Nov 12, 2024 11:38
[2024-11-12 12:39] LABS: INR 1.02 (0.9-1.15); Partial Thromboplastin Time 45.2 SEC (24.5-34.5); Prothrombin Time 10.8 sec (9.3-11.8)
[2024-11-12] MEDS: IODIXANOL 320MG/ML 100ML BTL IV ONE ×2 (15:29→19:08)
[2024-11-12] MEDS: MIDAZOLAM HCL 2MG/2ML 2ml VIAL (1mg/ml) ONE (15:30)
[2024-11-12] MEDS: ANGIOMAX 250 MG VIAL IV ONE (15:30)
[2024-11-12] MEDS: LIDOCAINE 2%HCL (LOCAL ANESTH.) INJ 20ML MDV ONE ×2 (15:30→18:45)
[2024-11-12] MEDS: fentaNYL CITRATE 100 MCG/2 ML VL ONE (15:30)
[2024-11-12] MEDS: SODIUM CHL 0.9% 0 ML ONE (15:31)
[2024-11-12] MEDS: HEPARIN SODIUM (PORCINE) 5000 UNITS/ML 1ML VIAL ONE (16:06)
[2024-11-12] MEDS: LIDOCAINE 2%HCL (LOCAL ANESTH.) INJ 10ml MDV ONE (16:28)
[2024-11-12] MEDS: CLOPIDOGREL BISULFATE 75 MG TAB PO ONE (16:30)
--- NOTE | 2024-11-12 16:57 | DVHOP2 ---
Operative Report - 2 Report Details Date: 11/12/24 Preop Diagnosis: Chronic limb ischemia left leg Postop Diagnosis: Left SFA occlusion Surgeon: Bernardo Leyva MD Anesthesiologist: Conscious sedation Anesthesia: Local Consent: The patient was informed of the risks and benefits of the procedure. These include but are not limited to complications of anesthesia, postoperative infection, incomplete relief of symptoms, recurrence of symptoms, damage to blood vessels, nerves and tendons, deep venous thrombosis, pulmonary embolism and possible need for repeat surgery in the future. Name of Procedure Performed Left SFA angioplasty and stent Procedure Details Procedure Details: Patient was identified in the preop hold area is being Mrs. Mcdaniel. She was consented in preop by myself she was brought back to the operating room posterior horn room table in supine position after adequate induction of anest hesia antibiotics and a time-out the left and right groin was prepped and draped in normal surgical fashion ultrasound was used to cannulate the right common femoral artery after 1% lidocaine had been injected the above it using a six Kazakh sheath a wire was then passed into the abdominal aorta. Using a rim catheter the wire was then able to be manipulated into the left external iliac artery. At this point in time a lower extremity arteriogram demonstrated patent left common femoral artery endarterectomy. Patent profunda. I SFA which was patent however had a 100% occlusion of the mid SFA just above the prior stent. There was a InStent stenosis in the range of 90% as well. Wire and catheter were then manipulated across the occlusion and stent stenosis. Three thousand heparin was given. A 5 x 200 balloon was used to angioplasty the occlusion as well as the InStent stenosis. Post angiogram demonstrated 70% residual stenosis of the occluded SFA and the minimal residual stenosis of the inset stenosis at this point in time a 6 x 100 stent was then deployed at the site of the SFA occlusion. A completion of the deployment was post dilated with the 5 mm balloon. Completion angiogram showed no residual stenosis of the stent as well as the InStent stenosis had minimal residual stenosis. At this point in time wire and catheter were pulled back right lower extremity arteriogram demonstrated patent calcified right common femoral artery. It was decided the manual pressure would be done at this point in time 20 minutes of manual pressure was performed. The patient awoke with a any difficulties taken to the recovery room in stable condition. Condition Good Disposition pacu BERNARDO LEYVA Jr., MD Nov 12, 2024 16:57
[2024-11-12] MEDS: NOREPINEPHRINE 8 MG/250ML KIT 250 ML IV ONE (17:38)
[2024-11-12] MEDS: SODIUM CHLORIDE 0.9% 1,000 ML IV ONE (17:43)
[2024-11-12] MEDS: PHENYLEPHRINE IV 250 ML IV ONE ×2 (17:48→19:27)
[2024-11-12] MEDS: IOHEXOL 350 MG/ML 100ML IJ ONE ×2 (17:57→18:42)
[2024-11-12] MEDS: ROCURONIUM 10MG/ML 10ML VIAL IV ONE (18:38)
[2024-11-12] MEDS: ETOMIDATE (2MG/ML) 20ML VIAL IV ONE (18:40)
[2024-11-12] MEDS: MIDAZOLAM DRIP 50 mg/50mL 50 ML IV ONE (18:42)
[2024-11-12] MEDS: fentaNYL Drip 2500mCg/250mlNS 250 ML IV ONE (18:42)
[2024-11-12] MEDS: HEPARIN IN NS 1000Units/500mL 1,500 ML ONE (18:43)
[2024-11-12] MEDS: ATROPINE SULF 1 MG/10ml SYR ONE (18:45)
[2024-11-12] MEDS: EPINEPHrine HCL 1 MG/10 ML SYRG ONE (18:45)
[2024-11-12] MEDS: VASOPRESSIN 20 UNIT/ML ONE ×2 (18:47→20:30)
--- NOTE | 2024-11-12 18:52 | DVH ---
Exam: CT CT AB PELVIS W WO CON-IV ONLY History: s/p angiogram Comparison Study: None TECHNIQUE: Multidetector CT of the abdomen and pelvis with and without IV contrast. Axial, coronal an d sagittal multiplanar reformats were obtained from the axial data set by the technologist. Radiation Dose Information: CT Dose: CTDI volume is 22.67 mGy. Dose-length product is 2623.01 mGy*cm FINDINGS: Bibasilar atelectasis. Possible trace right-sided pleural effusion. Mild cardiomegaly. Heavy atheros clerotic calcification arteries. Liver, gallbladder, pancreas and adrenal glands are unremarkable. Diminutive appearance of the spleen . There is contrast within the bilateral renal collecting systems. Contrast is noted within the decompr essed urinary bladder. Whalen catheter is noted in place. Focus of air over the Anterior urinary maylin dder which is most likely iatrogenic. Uterus is not well evaluated. Moderate hiatal hernia. Mild gastric wall thickening. Small bowel loops unremarkable. Appendix is u nremarkable. Descending colon and Sigmoid diverticulosis without diverticulitis. Small to moderate a mount of fecal material within the colon. Rectal wall thickening. Large hematoma extending from the right inguinal region into the right hemiabdomen inferior to the li kiran with slight distention across the midline. There is associated active contrast extravasation from the right external iliac artery. Heavy atherosclerotic calcification of the aorta and bilateral iliacs. There is decompression of the IVC consistent with volume loss. No significant lymphadenopathy. Soft tissue defect over the right inguinal region. Skin bridger are noted over the left inguinal esther on. Mild fat stranding of the bilateral inguinal regions with mild pelvic and minimal abdominal wall edema. Tiny fat containing umbilical hernia. Mild loss of superior vertebral body height of L2 of unk nown chronicity. IMPRESSION: Large hematoma extending from the right inguinal region into the right hemiabdomen inferior to the li kiran with slight extention across the midline. There is associated active contrast extravasation from the distal right external iliac artery. Moderate hiatal hernia. Mild gastric wall thickening. Correlate for mild gastritis. Critical Result: Hematoma with active extravasation. Findings discussed with KANA LAWRENCE at 11/12/2024 06:40 PM, and acknowledged receipt and understandi ng of the findings. ..
--- NOTE | 2024-11-12 19:56 | DVH ---
CHEST RADIOGRAPH Indication: ETT Technique: Single frontal view of the chest was obtained Comparison: XY CHEST XRAY 1 VIEW on DOS: 03/13/24 FINDINGS: Lines and Tubes: Endotracheal tube 3 cm from the swapnil. Lungs: No focal consolidation. Pleura: No effusion. No pneumothorax. Cardiomediastinal contours: Unremarkable Bones: No acute osseous abnormality. IMPRESSION: No acute cardiopulmonary disease.
[2024-11-12] MEDS: NOREPINEPHRINE 8 MG/250ML KIT 250 ML IV SCH (20:18)
[2024-11-12] MEDS: ALBUMIN 5% 250 ML IV ONE ×2 (20:18→20:55)
[2024-11-12] MEDS: EPINEPHrine HCL 250 ML IV ONE (20:22)
[2024-11-12] MEDS: MIDAZOLAM DRIP 50 mg/50mL 50 ML IV SCH (20:30)
[2024-11-12] MEDS: EPINEPHrine HCL 250 ML IV SCH (20:30)
[2024-11-12] MEDS: DOPamine 1600MCG/ML D5W 250 ML IV SCH (20:30)
[2024-11-12] MEDS: fentaNYL Drip 2500mCg/250mlNS 250 ML IV SCH (20:30)
--- NOTE | 2024-11-12 20:47 | DVHOP2 ---
Operative Report - 2 Report Details Date: 11/12/24 Preop Diagnosis: Retroperitoneal bleed Postop Diagnosis: Right common iliac artery bleed Surgeon: Bernardo Leyva MD Anesthesiologist: Conscious sedation Anesthesia: Local Consent: Patient was emergently taken back to the operating room after CTA findings demonstrated a large retroperitoneal bleed. Patient was hemodynamically unstable. Patient understood the gravity of this and agreed to the procedure. Prior to going to the matlab developer with the patient was intubated emergently for airway protection. Patient was on multiple vasopressin at the time of transport to the matlab developer. Complications: None Estimated Blood Loss: Minimal Findings: Right common/external iliac artery injury with active bleeding treated with flue ncy stent grafts x2 Indications for Surgery: Active retroperitoneal bleeding and hemodynamically unstable Name of Procedure Performed Left common iliac and external iliac artery stent grafts deployed Procedure Details Procedure Details: Patient was emergently taken to the matlab developer. Placed on the matlab developer table in the supine position after positioning the patient on the table the patient's screws were prepped and draped in normal surgical fashion. Ultrasound was used to cannulate the right femoral vein. A sheath was then inserted for IV access. This was exchanged out for a triple-lumen catheter. All ports were flushed and was able to be used for access. Attention was then placed to identified the common femoral/SFA due to the unknown where exactly the injury was the SFA was cannulated just above a prior stent that had been placed in the SFA. A initially a six Guamanian sheath was inserted a pressure monitor was attached to confirm arterial access at this point in time a 11 Guamanian sheath was then inserted over a stiff Glidewire. A aortogram was performed which demonstrated there was active extravasation from the common iliac/external iliac artery. At this point in time a nine by 80 fluency stent was deployed in the common iliac artery extending into the external iliac artery a 2nd stent was deployed again the low the initial stent the 2nd stent was an 8 x 60 fluency stent. Completion angiogram after the stents were angioplastied with a 10 by 40 mm balloon demonstrated no active bleeding. At this point in time due to the patient being hemodynamically stable and be on multiple pressors it was decided to leave the sheath in place for both the venous and arterial access is the arterial line was then hooked up for monitoring purposes. They were sutured in place with silk sutures. At this point in time sterile dressings were applied and the patient was taken to the PACU in a critical condition. Specimen: None Condition Critical Disposition pacu BERNARDO LEYVA Jr., MD Nov 12, 2024 20:47
--- NOTE | 2024-11-12 20:51 | POSTOP ---
Post-Operative Note Post-Operative Note Preop Diagnosis Severe peripheral vascular disease Postop Diagnosis: Left leg critical limb ischemia Operation performed Left SFA angioplasty and stenting. Specimen None Anesthesia: Local Anesthesiologist: Conscious sedation Blood Loss(fluid mgmt) Minimal Surgeon Bernardo Leyva MD Complications & Mgmt Upon arriving to the PACU patient stated she was having pain in her right lower quadrant. She gradually became were uncomfortable and nauseous and did vomit. She then became more tachycardic and hypotensive. This required pressors. Multiple IV fluid bolus were performed as well. At this point in time due to the hemodynamic instability it was decided to take the patient to CT for a CTA to rule out a retroperitoneal bleed. A CTA was performed this demonstrated a large right-sided retroperitoneal bleed. I discussed the findings with the patient and explained to her that she would have to undergo a emergent aortogram with a probable stent graft of the right iliac artery to control the bleeding. She understands the risks benefits and wanted to proceed she was in extreme pain becoming more nauseous it was decided to intubate the patient for airway protection. Once airway was secured. A chest x-ray was performed demonstrating the adequate positioning of the endotracheal tube. The patient was taken to the dairy and food laboratory assistant for a emergent aortogram and right leg arteriogram. Please see find ings of the 2nd operative report. Date 11/12/24 Time 20:47 BERNARDO LEYVA Jr., MD Nov 12, 2024 20:50
[2024-11-12] MEDS: VASOPRESSIN 40 UNITS in D5W 5% 198 ML IV SCH (20:54)
[2024-11-12 21:01] LABS: Basophils # (auto) 0 10 ^3/uL (0-0.2); Basophils % (auto) 0.3 % (0.0-2.0); Eosinophils # (auto) 0.1 10 ^3/uL (0-0.8); Eosinophils % (auto) 0.6 % (0.0-7.0); Hematocrit 17.7 % (36.0-46.0); Lymphocytes # (auto) 2.4 10 ^3/uL (0.4-5.4); Lymphocytes % (auto) 18.8 % (10.0-50.0); Mean Corpuscular Hemoglobin 31.2 pg (28.0-32.0); Mean Corpuscular Hgb Conc. 28.5 g/dL (32.0-36.0); Mean Corpuscular Volume 109.6 fL (80.0-100.0); Monocytes # (auto) 0.4 10 ^3/uL (0-1.3); Neutrophils # (auto) 9.7 10 ^3/uL (1.6-8.6); Neutrophils % (auto) 77.3 % (37.0-80.0); Nucleated Red Blood Cells % 0.4 %; Platelet Count (auto) 160 10^3/uL (140-450); Red Blood Cells 1.61 10^6/uL (4.0-5.20); White Blood Cell 12.6 10^3/uL (4.4-10.8)
[2024-11-12 21:13] LABS: Base Excess -23.9 mmol/L (-2.0-3.0)
[2024-11-12 21:17] LABS: INR 1.36 (0.9-1.15)
[2024-11-12] MEDS: PHENYLEPHRINE IV 250 ML IV SCH (21:18)
[2024-11-12 21:20] LABS: Alkaline Phosphatase 53 U/L (46-116); Anion Gap 21.00001 (5-15); BUN/Creatinine Ratio 9.4 (10.0-20.0); Blood Urea Nitrogen 11 mg/dL (9-23); Potassium 4.7 mmol/L (3.5-5.1)
[2024-11-12] MEDS: SODIUM BICARB 8.4% 50Meq/50ml SYR Vial IV ONE ×3 (21:30→23:21)
[2024-11-12 21:38] LABS: Alanine Aminotransferase 57 U/L (7-40); Aspartate Aminotransferase 65 U/L (<34); Bilirubin, Total < 0.2 mg/dL (0.2-1.0); Calcium 7.4 mg/dL (8.7-10.4); Chloride 114 mmol/L (98-107); Sodium 145 mmol/L (136-145); Total Protein 3.2 g/dL (5.7-8.2)
[2024-11-12] MEDS: SODIUM BICARB 8.4% 50Meq/50ml SYR INJ ONE ×2 (21:38→23:21)
[2024-11-12 21:39] LABS: Carbon Dioxide < 10 mmol/L (20-31)
[2024-11-12 21:40] LABS: Glucose 414 mg/dL (74-106)
[2024-11-12] MEDS: ATORVASTATIN 20 MG TAB PO SCH (22:00)
[2024-11-12] MEDS: traZODone HCL 50 MG TAB PO SCH (22:00)
[2024-11-12] MEDS: SODIUM BICARB 50mEq/50ml Vial 100 ML in SOD CHL 0.45% 1,000 ML IV SCH (23:15)
[2024-11-13] VITALS (92 sets, daily range): BP systolic 38–130; BP diastolic 17–63; PULSE 40–155; RESP 18–40; TEMP 96.3–97.8; O2SAT 30–100
[2024-11-13 00:21] LABS: Base Excess -20.6 mmol/L (-2.0-3.0)
[2024-11-13 00:28] LABS: Base Excess -19.2 mmol/L (-2.0-3.0)
[2024-11-13 04:25] LABS: Red Blood Cells 3.09 10^6/uL (4.0-5.20); White Blood Cell 29.3 10^3/uL (4.4-10.8)
[2024-11-13 04:27] LABS: Base Excess -22.5 mmol/L (-2.0-3.0)
[2024-11-13 04:29] LABS: Hematocrit 31.1 % (36.0-46.0); Hemoglobin 9.6 g/dL (12.2-16.2); Mean Corpuscular Hgb Conc. 30.9 g/dL (32.0-36.0); Mean Corpuscular Volume 100.4 fL (80.0-100.0); Platelet Count (auto) 153 10^3/uL (140-450); Red Cell Distribution Width 17.4 % (11.8-14.3)
[2024-11-13 04:31] LABS: Basophils % (manual) 0 (0.0-2.0); Blast Cells 0; Eosinophils % (manual) 0 (0-7); Myelocytes % 0; Promyelocytes % 0; Reactive Lymphocytes 0
[2024-11-13 04:47] LABS: Anion Gap 24 (5-15); BUN/Creatinine Ratio 9.5 (10.0-20.0); Blood Urea Nitrogen 16 mg/dL (9-23); Chloride 105 mmol/L (98-107); Sodium 140 mmol/L (136-145)
[2024-11-13 04:59] LABS: Alanine Aminotransferase 640 U/L (7-40); Albumin 1.7 g/dL (3.2-4.8); Alkaline Phosphatase 124 U/L (46-116); Aspartate Aminotransferase 1001 U/L (<34); Bilirubin, Total 0.2 mg/dL (0.2-1.0); Calcium 6.7 mg/dL (8.7-10.4); Carbon Dioxide 11 mmol/L (20-31); INR 2.94 (0.9-1.15); Partial Thromboplastin Time 68.1 SEC (24.5-34.5); Potassium 5.5 mmol/L (3.5-5.1); Total Protein 2.8 g/dL (5.7-8.2)
[2024-11-13 05:00] LABS: Glucose 563 mg/dL (74-106)
[2024-11-13] MEDS: SODIUM BICARB 8.4% 50Meq/50ml SYR INJ ONE ×2 (05:03→06:09)
[2024-11-13 05:14] LABS: Band Neutrophils % (manual) 4; Large Platelets FEW; Lymphocytes % (manual) 5 (10.0-50.0); Metamyelocytes % 1; Monocytes % (manual) 1 (0-12); Platelet Estimate Adequate
[2024-11-13] MEDS: SODIUM BICARB 8.4% 50Meq/50ml SYR Vial IV ONE ×4 (05:56→10:40)
[2024-11-13] MEDS: InsuLIN REG 1unit/0.01ml Soln (100units/ml) ONE (06:18)
[2024-11-13] MEDS: CALCIUM GLUC 1,000mg/50ml-NS 50 ML IV ONE ×2 (06:18→08:15)
[2024-11-13] MEDS: DEXTROSE 50% SYRINGE 0 ML IV ONE (06:19)
[2024-11-13] MEDS: FUROSEMIDE 20 MG/2 ML VIAL ONE (06:32)
--- NOTE | 2024-11-13 06:44 | DVHPN2 ---
Progress Note Date Seen: Nov 13, 2024 Medical Necessity Reason Pt with a Central, PICC or Fol: No The following are medically ne: Central Line Reason for connelly catheter: Strict I&O Subjective Patient reports: Other (events noted over night. pt. currently on max pressors, received 4 units of prbc. remains hemodynamically unstable. ) Review of Systems: CVS:Abnormal, RESPIRATORY:Abnormal, GI:Abnormal, :Abnormal Objective vital signs Vital Sign Date Time Temp Pulse Resp B/P (MAP) Pulse Ox O2 Delivery O2 Flow Rate FiO2 11/13/24 05:54 76/57 11/13/24 05:25 97.5 114 19 97.5 11/13/24 02:06 30 100 11/13/24 02:00 Mechanical Ventilator+ 11/12/24 08:30 0 Total Intake and Output 11/12/24 11/12/24 11/13/24 15:00 23:00 07:00 Intake Total 50 ml 1122.50 ml 2082.5 ml Balance 50 ml 1122.50 ml 2082.5 ml medications Current Medications Medications Dose Ordered Sig/Marni Route Start Time Stop Time Status Last Admin Dose Admin Acetaminophen 325 mg Q4HP PRN PO 11/11/24 17:15 Acetaminophen/ Hydrocodone Bitart 1 tab Q4HP PRN PO 11/11/24 17:15 Temazepam 15 mg QHSP PRN PO 11/11/24 17:15 Ondansetron HCl 4 mg Q4HP PRN IV 11/11/24 17:15 11/11/24 17:49 4 MG Morphine Sulfate 4 mg Q4HPRN PRN IV 11/11/24 17:15 11/12/24 12:31 4 MG Nitroglycerin 0.4 mg Q5MINP PRN SL 11/11/24 17:15 Morphine Sulfate 2 mg Q30M PRN IV 11/11/24 17:15 Clopidogrel Bisulfate 75 mg DAILY PO 11/12/24 10:00 Gabapentin 100 mg TID PO 11/11/24 22:00 11/12/24 06:14 100 MG Trazodone HCl 50 mg HS PO 11/12/24 22:00 Nifedipine 60 mg DAILY PO 11/12/24 10:00 11/12/24 09:32 60 MG Hydromorphone HCl 1 mg Q2HP PRN IV 11/11/24 17:30 Insulin Glargine 10 units HS SC 11/11/24 22:00 11/12/24 22:50 10 UNITS Diagnostic Test (Pha) 1 strip ACHS 11/11/24 22:00 11/13/24 05:57 1 STRIP Insulin Human Regular HS SC 11/11/24 22:00 11/12/24 22:49 10 UNITS Insulin Human Regular AC SC 11/12/24 07:00 11/13/24 05:26 15 UNITS Dextrose 50 ml UD PRN IV 11/11/24 17:30 Trimethoprim/ Sulfamethoxazole 1 tab BID PO 11/11/24 22:00 11/12/24 09:32 1 TAB Hydralazine HCl 10 mg Q6HP PRN IV 11/11/24 23:45 Atorvastatin Calcium 40 mg HS PO 11/12/24 22:00 Norepinephrine Bitartrate 250 ml @ 3.75 mls/hr Q24H IV 11/12/24 20:18 Phenylephrine HCl 250 ml @ 30 mls/hr Q8H20M IV 11/12/24 20:18 11/13/24 01:31 135 MLS/HR Vasopressin 40 units/Dextrose 200 ml @ 60 mls/hr Q3H20M IV 11/12/24 20:30 11/13/24 05:54 270 MLS/HR Dopamine HCl/ Dextrose 250 ml @ 13.744 mls/ hr [id number] IV 11/12/24 20:30 Epinephrine HCl 250 ml @ 7.5 mls/hr Q24H IV 11/12/24 20:30 Midazolam HCl 50 ml @ 1 mls/hr Q24H IV 11/12/24 20:30 Fentanyl Citrate 250 ml @ 2.5 mls/hr Q24H IV 11/12/24 20:30 Sodium Bicarbonate 100 ml/Sodium Chloride 1,100 ml @ 100 mls/hr Q11H IV 11/12/24 23:15 11/12/24 23:15 100 MLS/HR Examination: GENERAL:Normal, HEENT:Normal, CVS:Abnormal (levo, mariel, vasopressin,left radial brendon placed, Rigtht IJ central line inserted. ), ABDOMEN:Abnormal (ogt + heme ), MSK:Abnormal (right cordis removed 1.5 hours ago manual pressured healed for 40 mins. hematoma stable. right leg improved perfusion once catheter sheath removed ) laboratory and microbiology Laboratory Tests 11/13/24 04:13 Test 11/13/24 04:13 Range/Units Serum Glucose 563 *H 74-106 mg/dL Microbiology Date/Time Source Procedure Growth Status 11/12/24 00:30 Nose MRSA Screen - Final Complete Problem List/Assessment/Plan Problems(with codes): (1) Retroperitoneal bleed (2) Ischemic pain of left foot Problem List/Assessment/Plan Retroperitoneal bleed. Max cvs support. Transfuse ffp Bicarb Calcium treated hyperkalemia CXR pending pt. remains critical. Plan discussed with: Daughter, Other (pt. family currently on a cruise. nurse was able to contact last night and made aware of situation. ) My Orders My Orders Orders - HEATHER FARFAN Jr., MD Procedure Category Date Status Time Obtain Consent For: ORDERS 11/12/24 Transmitted 07:10 Obtain Consent For LUX 11/12/24 In Process Anesthesia 07:10 Npo (Nothing By DIET 11/12/24 Transmitted Mouth) Diet Lunch Cl Angio Extremity CL 11/12/24 Taken Bilat S&I 14:03 Bedrest LUX 11/12/24 In Process 16:51 Norepinephrine 8 PHA 11/12/24 In Process Mg/250ml Kit 20:18 Ct Ab Pelvis W Wo CT 11/12/24 Resulted Con-Iv Only 17:39 Admit ADMIT 11/12/24 Transmitted 17:42 Admit ADMIT 11/12/24 Transmitted 17:42 Oxygen By Nasal RT 11/12/24 Transmitted Cannula 17:42 Phenylephrine Iv PHA 11/12/24 In Process (Phenylephrine/Ns) 20:18 Cl Angio Extremity CL 11/12/24 Taken Bilat S&I 18:12 Type And Screen BBK 11/12/24 In Process 19:20 D5w 5% (Dextrose 5%) PHA 11/12/24 In Process W/Vasopressin 20:30 Dopamine 1600mcg/Ml PHA 11/12/24 In Process D5W 20:30 Epinephrine Hcl PHA 11/12/24 In Process 20:30 Midazolam Drip 50 PHA 11/12/24 In Process Mg/50ml (Versed Drip 5 20:30 Fentanyl Drip PHA 11/12/24 In Process 2500mcg/250mlns 20:30 Abg W/ Co-Ox RT 11/12/24 Logged 22:30 Sod Chl 0.45% PHA 11/12/24 In Process (Sodi... W/Sodium 23:15 Abg W/ Co-Ox RT 11/12/24 Logged 00:30 Ventilator Orders RT 11/13/24 Transmitted 00:37 Abg W/ Co-Ox RT 11/13/24 Logged 04:00 Ventilator Orders RT 11/13/24 Verified 18:30 Troponin-I Hs LAB 11/13/24 In Process 05:43 Troponin-I Hs LAB 11/13/24 Logged 06:43 Troponin-I Hs LAB 11/13/24 Logged 08:43 Frozen Plasma BBK 11/13/24 Logged 06:17 Ventilator Orders RT 11/13/24 Transmitted 06:17 HEATHER FARFAN Jr., MD Nov 13, 2024 06:44
[2024-11-13] MEDS: DOPamine 1600MCG/ML D5W 250 ML IV ONE (06:55)
[2024-11-13] MEDS ORDERED: SODIUM BICARB 8.4% 50Meq/50ml SYR Vial IV ONE ×2 (08:00)
[2024-11-13] MEDS: FUROSEMIDE 20 MG/2 ML VIAL IV ONE (08:16)
[2024-11-13] MEDS: InsuLIN REG 1unit/0.01ml Soln (100units/ml) IV ONE (08:16)
--- NOTE | 2024-11-13 08:16 | DVH ---
CHEST RADIOGRAPH Indication: CENTRAL LINE INSERTION Technique: Single frontal view of the chest was obtained COMPARISON: XY CHEST XRAY 1 VIEW on DOS: 11/12/24, XY CHEST XRAY 1 VIEW on DOS: 03/13/24 FINDINGS: Lines and Tubes: Endotracheal tube, enteric catheter in satisfactory position. Right central venous c atheter in satisfactory position. Lungs: Clear Pleura: No effusion. No pneumothorax. Cardiomediastinal contours: Cardiomegaly Bones: Unremarkable IMPRESSION: Lines and tubes in satisfactory position.
[2024-11-13] MEDS: PANTOPRAZOLE 40mg/50ML NS AE 50 ML IV SCH (08:17)
[2024-11-13 09:39] LABS: Mean Corpuscular Hemoglobin 30.5 pg (28.0-32.0)
[2024-11-13 09:43] LABS: Hematocrit 26.4 % (36.0-46.0); Mean Corpuscular Hgb Conc. 30.2 g/dL (32.0-36.0); Mean Corpuscular Volume 100.9 fL (80.0-100.0); Platelet Count (auto) 115 10^3/uL (140-450); Red Blood Cells 2.61 10^6/uL (4.0-5.20); Red Cell Distribution Width 17.4 % (11.8-14.3); White Blood Cell 26.3 10^3/uL (4.4-10.8)
[2024-11-13 09:48] LABS: Alkaline Phosphatase 105 U/L (46-116); Anion Gap 27 (5-15); BUN/Creatinine Ratio 9.7 (10.0-20.0); Blood Urea Nitrogen 19 mg/dL (9-23); Chloride 101 mmol/L (98-107); Potassium 4.5 mmol/L (3.5-5.1); Sodium 142 mmol/L (136-145)
[2024-11-13 09:49] LABS: Base Excess -19.2 mmol/L (-2.0-3.0)
[2024-11-13 09:50] LABS: Alanine Aminotransferase 625 U/L (7-40); Albumin 1.5 g/dL (3.2-4.8); Bilirubin, Total 0.2 mg/dL (0.2-1.0); Calcium 6.5 mg/dL (8.7-10.4); Carbon Dioxide 14 mmol/L (20-31); Total Protein 2.5 g/dL (5.7-8.2)
[2024-11-13 09:51] LABS: Glucose 562 mg/dL (74-106)
[2024-11-13 10:02] LABS: Basophils % (manual) 0 (0.0-2.0); Blast Cells 0; Eosinophils % (manual) 0 (0-7); INR 2.7 (0.9-1.15); Myelocytes % 0; Promyelocytes % 0; Prothrombin Time 25.9 sec (9.3-11.8); Reactive Lymphocytes 0
[2024-11-13 10:09] LABS: Aspartate Aminotransferase 993 U/L (<34)
[2024-11-13] MEDS: AMIODARONE BOLUS KIT 100 ML IV ONE ×2 (10:20→10:25)
[2024-11-13] MEDS: AMIODARONE 360mg/200mL PREMIX 200 ML IV ONE ×2 (10:20→10:30)
[2024-11-13 10:25] LABS: Magnesium 1.9 mg/dL (1.6-2.6)
--- NOTE | 2024-11-13 10:27 | DVHINCON2 ---
DATE OF CONSULTATION: 11/13/2024 INPATIENT GI CONSULTATION NOTE DATE OF EVALUATION: 11/13/2024 REFERRING PHYSICIAN: Dr. Babin REASON FOR CONSULTATION: Elevated liver function tests. HISTORY OF PRESENT ILLNESS: This is a 79-year-old female who is currently intubated who has a history of obesity, diabetes, hypertension, peripheral arterial disease, who recently had a left femoral endarterectomy due to severe PAD and was subsequently transferred to a correction facility for rehab. However, the patient came back with complaints of severe pain. The patient underwent reevaluation and subsequently underwent repeat left SFA angioplasty with stent due to chronic limb ischemia in the left side. Procedure was complicated by active retroperitoneal bleeding and hemodynamic instability in which the patient was taken back to the OR for repair. During this admission, the patient was noted to have an acute elevated liver function test where her AST was 1001, ALT 640. She also was noted to have troponin of 2051. Prior to this event on 11/12, LFTs were reasonably slightly above limits. The patient was also noted now to have some blood in her NG tube. GI is consulted for further input. Otherwise, the rest of the history is unobtainable. PAST MEDICAL HISTORY: Again is noted as above. The patient has obesity, diabetes, hypertension, chronic diabetic foot ulcer, and peripheral arterial disease status post endarterectomy. The patient also has possible COPD as well. ALLERGIES: SHE HAS ALLERGY TO ASPIRIN AND PENICILLIN. FAMILY HISTORY: Noncontributory. PHYSICAL EXAM: VITALS: Noted. GENERAL: The patient is intubated. The patient is currently on 4 pressors. She is obese. ABDOMEN: Soft, nondistended. DIAGNOSTIC LABS: Show troponin of 2051, BUN 16, creatinine 1.69, glucose 569, T-bili 0.2, AST 1001, ALT 640, alkaline phosphatase 124, WBC 29,000, hemoglobin 9.6, platelet count is 153. IMPRESSION: 1. Elevated LFTs, likely secondary to ischemic hepatitis secondary to hypotension and severe hypovolemia from bleeding. 2. NG tube bleeding. 3. Hematoma- defer 4. PAD/limb ischemia- defer RECOMMENDATION: Recommendation at this time is to continue the patient on IV Protonix drip. Continue to monitor the H and H serially. Continue to monitor LFTs serially. Continue to correct hypovolemia and hypotension. Further recommendation will follow the primary clinical course. MD EDUARDO Rain/ARNOL MCDERMOTT: 11/13/2024 09:08 AM TID: [id number] RECEIPT: [id number] MTDD
[2024-11-13 11:27] LABS: Band Neutrophils % (manual) 4; Lymphocytes % (manual) 6 (10.0-50.0); Metamyelocytes % 1; Monocytes % (manual) 2 (0-12)
[2024-11-13 11:28] LABS: Large Platelets FEW; Platelet Estimate Decreased
[2024-11-13] MEDS: PANTOPRAZOLE 80 MG in SODIUM CHL 0.9% 100 ML IV ONE (12:50)
[2024-11-13] MEDS: SODIUM CHLORIDE 0.9% 1,000 ML IV ONE (12:50)
[2024-11-13] MEDS: HYDROCORTISONE SOD SUCC 100 MG/2ML INJ VIAL IV SCH (13:00)
[2024-11-13] MEDS: VASOPRESSIN 20 UNIT/ML ONE ×2 (13:55)
[2024-11-13 15:24] LABS: Basophils # (auto) 0 10 ^3/uL (0-0.2); Basophils % (auto) 0.2 % (0.0-2.0); Eosinophils # (auto) 0 10 ^3/uL (0-0.8); Eosinophils % (auto) 0.1 % (0.0-7.0); Hematocrit 15.3 % (36.0-46.0); Lymphocytes # (auto) 1.3 10 ^3/uL (0.4-5.4); Lymphocytes % (auto) 6.7 % (10.0-50.0); Mean Corpuscular Hemoglobin 29.8 pg (28.0-32.0); Mean Corpuscular Hgb Conc. 30.2 g/dL (32.0-36.0); Mean Corpuscular Volume 98.7 fL (80.0-100.0); Monocytes # (auto) 0.5 10 ^3/uL (0-1.3); Monocytes % (auto) 2.3 % (0.0-12.0); Neutrophils # (auto) 18.1 10 ^3/uL (1.6-8.6); Neutrophils % (auto) 90.7 % (37.0-80.0); Nucleated Red Blood Cells % 1.4 %; Platelet Count (auto) 87 10^3/uL (140-450); Red Blood Cells 1.55 10^6/uL (4.0-5.20); Red Cell Distribution Width 17.2 % (11.8-14.3)
[2024-11-13 15:31] LABS: Hemoglobin 4.6 g/dL (12.2-16.2)
--- NOTE | 2024-11-13 15:52 | DVHINCON2 ---
PULMONARY CONSULTATION HISTORY OF PRESENT ILLNESS: The patient is a 79-year-old female who is intubated on mechanical ventilation. I have called to see this patient to manage the mechanical ventilation. The patient has severe peripheral vascular disease, type 2 diabetes mellitus and diabetic foot ulcer. Recently had left femoral endarterectomy. Also, tobacco dependence. Persistent pain in her left foot. She came from the SNF, underwent a left femoral endarterectomy and she went in respiratory distress and Dr. Leyva did lower extremity angiogram. She has COPD, history of smoking in the past. She is intermittently on mechanical ventilation. She is on vasopressors, bicarb drip, severe metabolic acidosis, afebrile, sedated. White count 6.2, hemoglobin 13.7 yesterday and platelet count 374. At this time, blood pressure is 118/53, pulse 126, respirations are 30, O2 saturation 95% on the vent. Chest x-ray, endotracheal tube in the right position and lower lung volumes. Abdomen and pelvis CT, large hematoma extending from the right inguinal region into the right hemiabdomen inferior to the liver with slight extension across the midline. There is associated active contrast extravasation from the distal right external iliac artery. Moderate hiatal hernia. Mild gastric wall thickening. Hematoma with active extravasation. Medication, she is on Protonix sodium bicarb drip. She got 4 amps of bicarb. Next, blood gases is ready to be done. We are waiting for the blood gas at this time. Blood sugar is 443, potassium 5.5 and BUN is 16, creatinine 1.69. Troponin is 1700. Blood gases have been 6.9 throughout the night with last blood gas 6.97, pCO2 of 35, pO2 of 79. The patient's tidal volume of 450, rate of 18, 30% and PEEP of 5. So, we have given 4 amps of bicarb and the patient is on a bicarb drip. Followup blood gas is pending. PHYSICAL EXAMINATION: LUNGS: Diminished breath sounds. Intermittent mechanical ventilation. The patient also received packed cells, unstable patient. Retroperitoneal bleed; ischemic pain, left foot; intubated on mechanical ventilation; severe metabolic acidosis; hyperkalemia. The patient had left SFA angioplasty and stent. The patient is very critical. Respiratory failure, metabolic acidosis, hyperkalemia, retroperitoneal bleed. increase of rate to 20-24 at this time. Tidal volume 450, PEEP of 5, 30%. Wait for the blood gas and depending on that, we will make changes. Michael Ortega MD MA/JHON/ROM/BEAR TID: [id number] RECEIPT: [id number]
[2024-11-13] MEDS: AMIODARONE 360mg/200mL PREMIX 200 ML IV SCH (16:29)
--- NOTE | 2024-11-13 18:57 | DVHINCON2 ---
Date of service: Nov 13, 2024 Referring Physician Reason for Consultation IMELDA History of Present Illness 79 years old female with past medical history of diabetes, peripheral arterial disease with recent femoral endarterectomy, diabetic left foot ulcer, smoking, presented with chief complaints of left foot pain severe pain , found to have diffuse SFA and tibial disease underwent left leg angiogram found to have left SFA occlusion underwent angioplasty and stent placement,, postop she developed a large retroperitoneal bleeding status post grafts, went into hemodynamic shock needing multiple vasopressors Patient currently intubated and sedated maxed out on five vasopressors with minimal urine output nephrology consulted for Acute kidney injury She received contrast for multiple procedures also overnight Past Medical History per hpi Past Surgical History per hpi Allergies: Coded Allergies: Aspirin (Verified Allergy, Unknown, 02/12/22) Penicillins (Verified Allergy, Unknown, 02/12/22) Home Meds Active Scripts Ibuprofen Micronized (Ibuprofen) 400 Mg Tab, 400 MG PO Q8HP PRN for 10 Days, #30 TAB 0 Refills Prov:SILVINO DE LEÓN 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 Acetaminophen (Acetaminophen) 500 Mg Tab, 500 MG PO Q8HP PRN for 10 Days, #30 TAB 0 Refills Prov:SILVINO DE LEÓN 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 Reported Medications Prednisone (Prednisone) 20 Mg Tab, 20 MG PO DAILY, MG 10/26/24 Meclizine HCl (Meclizine 25) 25 Mg Tab, 25 MG PO BIDPRN PRN for DIZZINESS, TAB 10/26/24 Gabapentin (Gabapentin) 300 Mg Cap, 1 CAP PO TID for 60 Days, #180 02/15/24 Metformin Hydrochloride (Metformin Hcl) 500 Mg Tab, 1 TAB PO BID for 90 Days, #180 02/15/24 Insulin Glargine (Basaglar Kwikpen) 100 Unit/Ml Inj, 15 UNIT SC DAILY for 70 Days, #12 02/15/24 Trazodone Hcl (Trazodone Hcl) 50 Mg Tab, 1 TAB PO DAILY for 30 Days, #30 02/15/24 Hydrocodone-Acetaminophen (Hydrocodone Bitartrate/AC 7.5-325 mg) 1 Tab Tab, 1 TAB PO Q8HR for 30 Days, #90 02/15/24 Furosemide (Furosemide) 40 Mg Tab, 1 TAB PO DAILY for 90 Days, #90 02/15/24 Atorvastatin Calcium (Lipitor) 40 Mg Tab, 1 TAB PO DAILY, #30 TAB 5 Refills 02/14/24 Empagliflozin (Jardiance) 25 Mg Tab, 25 MG PO DAILY, TAB 02/14/24 Pantoprazole Sodium Sesquihydr (Protonix) 40 Mg Tab, 40 MG PO DAILY, #30 TAB 02/14/24 Potassium Chloride (Klor-Con M20) 20 Meq Tab, 20 MEQ PO DAILY, TAB 02/14/24 Carvedilol (Carvedilol) 25 Mg Tab, 25 MG PO BID, TAB 02/14/24 Clopidogrel Bisulfate (Plavix) 75 Mg Tab, 75 MG PO DAILY, TAB 02/14/24 Nifedipine (Nifedipine Er) 60 Mg Tab, 60 MG PO DAILY, TAB 02/14/24 Current Medications Current Medications Medications (Trade) Dose Ordered Sig/Marni Route PRN Reason Start Time Stop Time Status Last Admin Trazodone HCl (Desyrel) 50 mg HS PO 11/12/24 22:00 Atorvastatin Calcium (Lipitor) 40 mg HS PO 11/12/24 22:00 Norepinephrine Bitartrate 250 ml @ 3.75 mls/hr Q24H IV 11/12/24 20:18 11/13/24 15:52 Phenylephrine HCl 250 ml @ 30 mls/hr Q8H20M IV 11/12/24 20:18 11/13/24 12:48 Vasopressin 40 units/Dextrose 200 ml @ 60 mls/hr Q3H20M IV 11/12/24 20:30 11/13/24 12:05 DC 11/13/24 11:04 Dopamine HCl/ Dextrose 250 ml @ 13.744 mls/ hr [id number] IV 11/12/24 20:30 11/13/24 16:23 Epinephrine HCl 250 ml @ 7.5 mls/hr Q24H IV 11/12/24 20:30 11/13/24 12:48 Midazolam HCl 50 ml @ 1 mls/hr Q24H IV 11/12/24 20:30 Fentanyl Citrate 250 ml @ 2.5 mls/hr Q24H IV 11/12/24 20:30 Sodium Bicarbonate 100 ml/Sodium Chloride 1,100 ml @ 100 mls/hr Q11H IV 11/12/24 23:15 11/13/24 10:02 Pantoprazole Sodium 50 ml @ 10 mls/hr Q5H IV 11/13/24 08:00 11/13/24 13:05 Vasopressin 40 units/Sodium Chloride 252 ml @ 75.6 mls/hr Q3H20M IV 11/13/24 11:30 11/13/24 12:11 DC Vasopressin 40 units/Sodium Chloride 200 ml @ 60 mls/hr Q3H20M IV 11/13/24 12:15 11/13/24 12:59 DC 11/13/24 12:15 Hydrocortisone Sodium Succinate (Solu-CORTEF INJECTION) 100 mg Q8HR IV 11/13/24 12:30 11/13/24 13:00 Vasopressin 80 units/Sodium Chloride 400 ml @ 60 mls/hr Q6H40M IV 11/13/24 13:00 11/13/24 13:28 DC Vasopressin 80 units/Sodium Chloride 400 ml @ 60 mls/hr Q6H40M IV 11/13/24 13:30 11/13/24 16:23 Family History: Blood clots 19 CHILD FH: heart failure G8 MOTHER FH: leukemia G8 BROTHER FH: stroke 19 CHILD Social History unknown Review of Systems per hpi H&P Exam Vital Signs/I&O Vital Sign Date Time Temp Pulse Resp B/P (MAP) Pulse Ox O2 Delivery O2 Flow Rate FiO2 11/13/24 18:15 42 24 38/26 (30) 11/13/24 18:04 100 11/13/24 18:00 Mechanical Ventilator+ 11/13/24 15:15 94 11/13/24 13:15 97.5 97.5 11/12/24 08:30 0 Intake and Output 11/12/24 11/13/24 19:00 07:00 Intake Total 250 ml 5067.50 ml Output Total 400 ml Balance 250 ml 4667.50 ml Intake Oral 250 ml IV Total 4467.50 ml Blood Product 600 ml Output Urine Total 400 ml Physical Exam General-intubated Respiratory-fair air entry bilateral, [id number] heard, no murmurs appreciated Abdominal-soft, nontender, nondistended Musculoskeletal-++ pedal edema, ++mottling of extremities Genitourinary-deferred Neuro-sedated Labs/Diagnostic Data Labs/Diagnostic Data Laboratory Tests Test 11/13/24 15:10 11/13/24 09:33 11/13/24 09:10 11/13/24 06:50 Range/Units White Blood Count 20.0 H 26.3 H 4.4-10.8 10^3/uL Red Blood Count 1.55 L 2.61 L 4.0-5.20 10^6/uL Hemoglobin 4.6 #*L 8.0 #L 12.2-16.2 g/dL Hematocrit 15.3 #L 26.4 #L 36.0-46.0 % Mean Corpuscular Volume 98.7 100.9 H 80.0-100.0 fL Mean Corpuscular Hemoglobin 29.8 30.5 28.0-32.0 pg Mean Corpuscular Hemoglobin Concent 30.2 L 30.2 L 32.0-36.0 g/dL Red Cell Distribution Width 17.2 H 17.4 H 11.8-14.3 % Platelet Count 87 L 115 L 140-450 10^3/uL Mean Platelet Volume 9.1 8.7 6.9-10.8 fL Neutrophils (%) (Auto) 90.7 H 37.0-80.0 % Lymphocytes (%) (Auto) 6.7 L 10.0-50.0 % Monocytes (%) (Auto) 2.3 0.0-12.0 % Eosinophils (%) (Auto) 0.1 0.0-7.0 % Basophils (%) (Auto) 0.2 0.0-2.0 % Neutrophils # (Auto) 18.1 H 1.6-8.6 10 ^3/uL Lymphocytes # (Auto) 1.3 0.4-5.4 10 ^3/uL Monocytes # (Auto) 0.5 0-1.3 10 ^3/uL Eosinophils # (Auto) 0 0-0.8 10 ^3/uL Basophils # (Auto) 0 0-0.2 10 ^3/uL Nucleated Red Blood Cells 1.4 % Blood Gas Specimen Type Arterial Blood Gas Sample Site Arterial line Blood Gas Patient Temperature 37.0 Arterial Blood Date Drawn [id number] Arterial Blood pH 7.032 *L 7.350-7.450 Arterial Blood Partial Pressure CO2 39.9 32.0-45.0 mmHg Arterial Blood Partial Pressure O2 64.7 L 83.0-108.0 mmHg Arterial Blood HCO3 10.4 L 21.0-28.0 mmol/L Arterial Blood Oxygen Saturation 87.7 L 94.0-98.0 % Arterial Blood Base Excess -19.2 L -2.0-3.0 mmol/L Arterial Blood Oxyhemoglobin 87.4 L 94.0-98.0 % Arterial Blood Carboxyhemoglobin 0.1 L 0.5-1.5 % Arterial Blood Methemoglobin 0.2 0.0-1.5 % Julio Test N/a Blood Gas Total Hemoglobin 8.70 L 12.0-16.0 g/dL Blood Gas Set Respiration Rate 24.0 Blood Gas Modality Vent - ac Blood Gas Spontaneous Rate 28 FiO2 % 30.0 Blood Gas Tidal Volume 450.0 Blood Gas PEEP or CPAP 5.0 Blood Gas Critical Value Read Back Yes Blood Gas Notified Whom Shannon wright Blood Gas Notified Time [id number] Blood Gas Notified By Joe gandhi Differential Total Cells Counted 100.0 100 Neutrophils % (Manual) 87 H 37.0-80.0 Band Neutrophils % (Manual) 4 Lymphocytes % (Manual) 6 L 10.0-50.0 Monocytes % (Manual) 2 0-12 Eosinophils % (Manual) 0 0-7 Basophils % (Manual) 0 0.0-2.0 Metamyelocytes % (manual) 1 Myelocytes % (Manual) 0 Promyelocytes % (Manual) 0 Blast Cells % (Manual) 0 Reactive Lymphocytes 0 Platelet Estimate Decreased Large Platelets Few Prothrombin Time 25.9 H 9.3-11.8 sec Prothrombin Time INR 2.70 H 0.9-1.15 Sodium Level 142 136-145 mmol/L Potassium Level 4.5 3.5-5.1 mmol/L Chloride Level 101 98-107 mmol/L Carbon Dioxide Level 14 L 20-31 mmol/L Anion Gap 27 H 5-15 Blood Urea Nitrogen 19 9-23 mg/dL Creatinine 1.95 H 0.550-1.02 mg/dL Glomerular Filtration Rate Calc 26 >90 mL/min BUN/Creatinine Ratio 9.7 L 10.0-20.0 Serum Glucose 562 *H 74-106 mg/dL Calcium Level 6.5 L 8.7-10.4 mg/dL Magnesium Level 1.9 1.6-2.6 mg/dL Total Bilirubin 0.2 0.2-1.0 mg/dL Aspartate Amino Transferase (AST) 993 H <34 U/L Alanine Aminotransferase (ALT) 625 H 7-40 U/L Alkaline Phosphatase 105 46-116 U/L Troponin I High Sensitivity 2500 *H 2052 *H </=34 ng/L Total Protein 2.5 L 5.7-8.2 g/dL Albumin 1.5 L 3.2-4.8 g/dL Test 11/13/24 06:23 11/13/24 05:02 11/13/24 04:17 11/13/24 04:13 Range/Units POC Glucose 443 *H 413 *H 70-106 mg/dl Blood Gas Specimen Type Arterial Blood Gas Sample Site Arterial line Blood Gas Patient Temperature 37.0 Arterial Blood Date Drawn [id number] Arterial Blood pH 6.972 *L 7.350-7.450 Arterial Blood Partial Pressure CO2 35.8 32.0-45.0 mmHg Arterial Blood Partial Pressure O2 79.8 L 83.0-108.0 mmHg Arterial Blood HCO3 8.1 L 21.0-28.0 mmol/L Arterial Blood Oxygen Saturation 92.1 L 94.0-98.0 % Arterial Blood Base Excess -22.5 L -2.0-3.0 mmol/L Arterial Blood Oxyhemoglobin 91.5 L 94.0-98.0 % Arterial Blood Carboxyhemoglobin 0.3 L 0.5-1.5 % Arterial Blood Methemoglobin 0.3 0.0-1.5 % Julio Test N/a Blood Gas Total Hemoglobin 10.40 L 12.0-16.0 g/dL Blood Gas Set Respiration Rate 18.0 Blood Gas Modality Vent - ac FiO2 % 30.0 Blood Gas Tidal Volume 450.0 Blood Gas PEEP or CPAP 5.0 Blood Gas Critical Value Read Back Yes Blood Gas Notified Whom Dr. dave vargas Blood Gas Notified Time [id number] Blood Gas Notified By Rt shaheed stacy White Blood Count 29.3 H 4.4-10.8 10^3/uL Red Blood Count 3.09 L 4.0-5.20 10^6/uL Hemoglobin 9.6 #L 12.2-16.2 g/dL Hematocrit 31.1 #L 36.0-46.0 % Mean Corpuscular Volume 100.4 #H 80.0-100.0 fL Mean Corpuscular Hemoglobin 31.0 28.0-32.0 pg Mean Corpuscular Hemoglobin Concent 30.9 L 32.0-36.0 g/dL Red Cell Distribution Width 17.4 H 11.8-14.3 % Platelet Count 153 140-450 10^3/uL Mean Platelet Volume 8.5 6.9-10.8 fL Neutrophils (%) (Auto) 37.0-80.0 % Lymphocytes (%) (Auto) 10.0-50.0 % Monocytes (%) (Auto) 0.0-12.0 % Basophils (%) (Auto) 0.0-2.0 % Neutrophils # (Auto) 1.6-8.6 10 ^3/uL Lymphocytes # (Auto) 0.4-5.4 10 ^3/uL Monocytes # (Auto) 0-1.3 10 ^3/uL Differential Total Cells Counted 100.0 100 Neutrophils % (Manual) 89 H 37.0-80.0 Band Neutrophils % (Manual) 4 Lymphocytes % (Manual) 5 L 10.0-50.0 Monocytes % (Manual) 1 0-12 Eosinophils % (Manual) 0 0-7 Basophils % (Manual) 0 0.0-2.0 Metamyelocytes % (manual) 1 Myelocytes % (Manual) 0 Promyelocytes % (Manual) 0 Blast Cells % (Manual) 0 Reactive Lymphocytes 0 Platelet Estimate Adequate Large Platelets Few Prothrombin Time 28.0 H 9.3-11.8 sec Prothrombin Time INR 2.94 H 0.9-1.15 Activated Partial Thromboplast Time 68.1 H 24.5-34.5 SEC Sodium Level 140 # 136-145 mmol/L Potassium Level 5.5 H 3.5-5.1 mmol/L Chloride Level 105 98-107 mmol/L Carbon Dioxide Level 11 L 20-31 mmol/L Anion Gap 24 H 5-15 Blood Urea Nitrogen 16 9-23 mg/dL Creatinine 1.69 #H 0.550-1.02 mg/dL Glomerular Filtration Rate Calc 31 >90 mL/min BUN/Creatinine Ratio 9.5 L 10.0-20.0 Serum Glucose 563 *H 74-106 mg/dL Calcium Level 6.7 L 8.7-10.4 mg/dL Total Bilirubin 0.2 0.2-1.0 mg/dL Aspartate Amino Transferase (AST) 1001 H <34 U/L Alanine Aminotransferase (ALT) 640 H 7-40 U/L Alkaline Phosphatase 124 H 46-116 U/L Troponin I High Sensitivity 1700 *H </=34 ng/L Total Protein 2.8 L 5.7-8.2 g/dL Albumin 1.7 L 3.2-4.8 g/dL Test 11/13/24 00:23 11/12/24 22:43 11/12/24 22:25 11/12/24 21:05 Range/Units Blood Gas Specimen Type Arterial Arterial Arterial Blood Gas Sample Site Arterial line Arterial line Arterial line Blood Gas Patient Temperature 37.0 37.0 37.0 Arterial Blood Date Drawn [id number] Arterial Blood pH 7.010 *L 6.980 *L 6.900 *L 7.350-7.450 Arterial Blood Partial Pressure CO2 43.1 40.2 35.6 32.0-45.0 mmHg Arterial Blood Partial Pressure O2 119.5 H 160.1 H 301.5 *H 83.0-108.0 mmHg Arterial Blood HCO3 10.6 L 9.3 L 6.8 L 21.0-28.0 mmol/L Arterial Blood Oxygen Saturation 96.9 97.7 99.5 H 94.0-98.0 % Arterial Blood Base Excess -19.2 L -20.6 L -23.9 L -2.0-3.0 mmol/L Arterial Blood Oxyhemoglobin 96.3 96.8 98.0 94.0-98.0 % Arterial Blood Carboxyhemoglobin 0.6 0.2 L 1.2 0.5-1.5 % Arterial Blood Methemoglobin 0.0 0.7 0.3 0.0-1.5 % Julio Test N/a N/a N/a Blood Gas Total Hemoglobin 8.20 L 6.60 *L 5.90 *L 12.0-16.0 g/dL Blood Gas Set Respiration Rate 18.0 18.0 18.0 Blood Gas Modality Vent - ac Vent - ac Vent - ac FiO2 % 40.0 50.0 100.0 Blood Gas Tidal Volume 450.0 450.0 450.0 Blood Gas PEEP or CPAP 8.0 5.0 8.0 Blood Gas Critical Value Read Back Yes Yes Yes Blood Gas Notified Whom Dr. s kowtong vargas Blood Gas Notified Time [id number] Blood Gas Notified By Rt shaheed stacy Rt shaheed stacy Rt shaheed stacy POC Glucose 369 H 70-106 mg/dl Test 11/12/24 20:40 11/12/24 17:16 11/12/24 12:10 11/12/24 11:28 Range/Units White Blood Count 12.6 #H 4.4-10.8 10^3/uL Red Blood Count 1.61 L 4.0-5.20 10^6/uL Hemoglobin 5.0 #*L 12.2-16.2 g/dL Hematocrit 17.7 #L 36.0-46.0 % Mean Corpuscular Volume 109.6 #H 80.0-100.0 fL Mean Corpuscular Hemoglobin 31.2 28.0-32.0 pg Mean Corpuscular Hemoglobin Concent 28.5 L 32.0-36.0 g/dL Red Cell Distribution Width 17.0 H 11.8-14.3 % Platelet Count 160 140-450 10^3/uL Mean Platelet Volume 8.8 6.9-10.8 fL Neutrophils (%) (Auto) 77.3 37.0-80.0 % Lymphocytes (%) (Auto) 18.8 10.0-50.0 % Monocytes (%) (Auto) 3.0 0.0-12.0 % Eosinophils (%) (Auto) 0.6 0.0-7.0 % Basophils (%) (Auto) 0.3 0.0-2.0 % Neutrophils # (Auto) 9.7 H 1.6-8.6 10 ^3/uL Lymphocytes # (Auto) 2.4 0.4-5.4 10 ^3/uL Monocytes # (Auto) 0.4 0-1.3 10 ^3/uL Eosinophils # (Auto) 0.1 0-0.8 10 ^3/uL Basophils # (Auto) 0 0-0.2 10 ^3/uL Nucleated Red Blood Cells 0.4 % Prothrombin Time 14.0 H 10.8 9.3-11.8 sec Prothrombin Time INR 1.36 H 1.02 0.9-1.15 Sodium Level 145 136-145 mmol/L Potassium Level 4.7 3.5-5.1 mmol/L Chloride Level 114 H 98-107 mmol/L Carbon Dioxide Level < 10 *L 20-31 mmol/L Anion Gap 21.58305 H 5-15 Blood Urea Nitrogen 11 9-23 mg/dL Creatinine 1.17 #H 0.550-1.02 mg/dL Glomerular Filtration Rate Calc 48 >90 mL/min BUN/Creatinine Ratio 9.4 L 10.0-20.0 Serum Glucose 414 *H 74-106 mg/dL Calcium Level 7.4 L 8.7-10.4 mg/dL Total Bilirubin < 0.2 L 0.2-1.0 mg/dL Aspartate Amino Transferase (AST) 65 H <34 U/L Alanine Aminotransferase (ALT) 57 H 7-40 U/L Alkaline Phosphatase 53 46-116 U/L Total Protein 3.2 L 5.7-8.2 g/dL Albumin 2.0 L 3.2-4.8 g/dL POC Glucose 170 H 145 H 70-106 mg/dl Activated Partial Thromboplast Time 45.2 H 24.5-34.5 SEC Test 11/12/24 05:52 11/12/24 05:44 11/11/24 22:06 11/11/24 13:45 Range/Units POC Glucose 102 202 H 70-106 mg/dl White Blood Count 5.4 6.2 4.4-10.8 10^3/uL Red Blood Count 4.10 4.26 4.0-5.20 10^6/uL Hemoglobin 13.1 13.7 12.2-16.2 g/dL Hematocrit 40.0 41.7 36.0-46.0 % Mean Corpuscular Volume 97.5 98.0 80.0-100.0 fL Mean Corpuscular Hemoglobin 31.9 32.2 H 28.0-32.0 pg Mean Corpuscular Hemoglobin Concent 32.7 32.8 32.0-36.0 g/dL Red Cell Distribution Width 15.4 H 15.1 H 11.8-14.3 % Platelet Count 360 374 140-450 10^3/uL Mean Platelet Volume 8.6 8.6 6.9-10.8 fL Neutrophils (%) (Auto) 62.3 65.4 37.0-80.0 % Lymphocytes (%) (Auto) 26.0 24.6 10.0-50.0 % Monocytes (%) (Auto) 8.6 6.7 0.0-12.0 % Eosinophils (%) (Auto) 2.7 2.5 0.0-7.0 % Basophils (%) (Auto) 0.4 0.8 0.0-2.0 % Neutrophils # (Auto) 3.4 4.1 1.6-8.6 10 ^3/uL Lymphocytes # (Auto) 1.4 1.5 0.4-5.4 10 ^3/uL Monocytes # (Auto) 0.5 0.4 0-1.3 10 ^3/uL Eosinophils # (Auto) 0.1 0.2 0-0.8 10 ^3/uL Basophils # (Auto) 0 0.1 0-0.2 10 ^3/uL Nucleated Red Blood Cells 0.2 0.1 % Sodium Level 143 142 136-145 mmol/L Potassium Level 3.9 4.3 3.5-5.1 mmol/L Chloride Level 105 105 98-107 mmol/L Carbon Dioxide Level 29 30 20-31 mmol/L Anion Gap 9 7 5-15 Blood Urea Nitrogen 9 9 9-23 mg/dL Creatinine 0.61 0.75 0.550-1.02 mg/dL Glomerular Filtration Rate Calc 92 82 >90 mL/min BUN/Creatinine Ratio 14.8 12.0 10.0-20.0 Serum Glucose 96 240 H 74-106 mg/dL Calcium Level 9.0 9.8 8.7-10.4 mg/dL Total Bilirubin 0.2 0.2 0.2-1.0 mg/dL Aspartate Amino Transferase (AST) 11 12 <34 U/L Alanine Aminotransferase (ALT) < 9 10 7-40 U/L Alkaline Phosphatase 109 135 H 46-116 U/L Total Protein 6.3 7.0 5.7-8.2 g/dL Albumin 3.6 4.0 3.2-4.8 g/dL Erythrocyte Sedimentation Rate 52 H 0-20 mm/hr Lactic Acid Level 1.8 0.4-2.0 mmol/L C-Reactive Protein High Sensitivity 1.85 H <1.0 mg/dL B-Type Natriuretic Peptide 186.39 0-100 pg/mL Microbiology Date/Time Source Procedure Growth Status 11/12/24 00:30 Nose MRSA Screen - Final Complete Assessment Acute kidney injury likely acute tubular necrosis in the setting of shock Hemodynamic shock Status post retroperitoneal bleeding after lower extremity angiogram Ventilator-dependent hypoxic respiratory failure Acute blood loss anemia Recommendations As urine output remained low diuretic one time dose Grave prognosis Hemodynamically unstable We will follow Reviewed vital signs, lab work, imaging studies, medications, microbiology, other physician recommendations Total time spent 80 minutes More than 50% of the time spent providing direct [id number] care . Thank you for allowing me to participate in the care of your patient. Plan discussed with: Other JEN FRYE MD Nov 13, 2024 18:57
[2024-11-13] MEDS ORDERED: BUMETANIDE 2.5mg/10ml (0.25 mg/ml) INJ IV ONE (19:00)
[2024-11-13] MEDS ORDERED: BUMETANIDE 1mg/4ml VIAL (0.25mg/ml) IV ONE (19:00)
--- NOTE | 2024-11-13 19:45 | PRN ---
Misceleneous Note Note Note Pt experienced code blue, CPR was performed and family - [place] and Mary were contacted over the phone 1906, family agreed that further CPR will be futile, following which we discontinued all interventions, and the patient immediately. Attempted to inform aquilino Maldonado TOMal 1919 JANNETTE BHATIA,JOSEPH RESIDENT Nov 13, 2024 19:45
--- NOTE | 2024-11-13 20:22 | DVHDS2 ---
Discharge Summary Date of Admission Nov 11, 2024 at 17:09 Date of Discharge: Nov 13, 2024 Labs/Diagnostic Data: Laboratory Results Test 11/13/24 15:10 11/13/24 09:33 11/13/24 09:10 11/13/24 06:23 White Blood Count 20.0 10^3/uL (4.4-10.8) Red Blood Count 1.55 10^6/uL (4.0-5.20) Hemoglobin 4.6 g/dL (12.2-16.2) Hematocrit 15.3 % (36.0-46.0) Mean Corpuscular Volume 98.7 fL (80.0-100.0) Mean Corpuscular Hemoglobin 29.8 pg (28.0-32.0) Mean Corpuscular Hemoglobin Concent 30.2 g/dL (32.0-36.0) Red Cell Distribution Width 17.2 % (11.8-14.3) Platelet Count 87 10^3/uL (140-450) Mean Platelet Volume 9.1 fL (6.9-10.8) Neutrophils (%) (Auto) 90.7 % (37.0-80.0) Lymphocytes (%) (Auto) 6.7 % (10.0-50.0) Monocytes (%) (Auto) 2.3 % (0.0-12.0) Eosinophils (%) (Auto) 0.1 % (0.0-7.0) Basophils (%) (Auto) 0.2 % (0.0-2.0) Neutrophils # (Auto) 18.1 10 ^3/uL (1.6-8.6) Lymphocytes # (Auto) 1.3 10 ^3/uL (0.4-5.4) Monocytes # (Auto) 0.5 10 ^3/uL (0-1.3) Eosinophils # (Auto) 0 10 ^3/uL (0-0.8) Basophils # (Auto) 0 10 ^3/uL (0-0.2) Nucleated Red Blood Cells 1.4 % Blood Gas Specimen Type Arterial Blood Gas Sample Site Arterial line Blood Gas Patient Temperature 37.0 Arterial Blood Date Drawn [id number] Arterial Blood pH 7.032 (7.350-7.450) Arterial Blood Partial Pressure CO2 39.9 mmHg (32.0-45.0) Arterial Blood Partial Pressure O2 64.7 mmHg (83.0-108.0) Arterial Blood HCO3 10.4 mmol/L (21.0-28.0) Arterial Blood Oxygen Saturation 87.7 % (94.0-98.0) Arterial Blood Base Excess -19.2 mmol/L (-2.0-3.0) Arterial Blood Oxyhemoglobin 87.4 % (94.0-98.0) Arterial Blood Carboxyhemoglobin 0.1 % (0.5-1.5) Arterial Blood Methemoglobin 0.2 % (0.0-1.5) Julio Test N/a Blood Gas Total Hemoglobin 8.70 g/dL (12.0-16.0) Blood Gas Set Respiration Rate 24.0 Blood Gas Modality Vent - ac Blood Gas Spontaneous Rate 28 FiO2 % 30.0 Blood Gas Tidal Volume 450.0 Blood Gas PEEP or CPAP 5.0 Blood Gas Critical Value Read Back Yes Blood Gas Notified Whom Shannon wright Blood Gas Notified Time [id number] Blood Gas Notified By Joe gandhi Differential Total Cells Counted 100.0 (100) Neutrophils % (Manual) 87 (37.0-80.0) Band Neutrophils % (Manual) 4 Lymphocytes % (Manual) 6 (10.0-50.0) Monocytes % (Manual) 2 (0-12) Eosinophils % (Manual) 0 (0-7) Basophils % (Manual) 0 (0.0-2.0) Metamyelocytes % (manual) 1 Myelocytes % (Manual) 0 Promyelocytes % (Manual) 0 Blast Cells % (Manual) 0 Reactive Lymphocytes 0 Platelet Estimate Decreased Large Platelets Few Prothrombin Time 25.9 sec (9.3-11.8) Prothrombin Time INR 2.70 (0.9-1.15) Sodium Level 142 mmol/L (136-145) Potassium Level 4.5 mmol/L (3.5-5.1) Chloride Level 101 mmol/L (98-107) Carbon Dioxide Level 14 mmol/L (20-31) Anion Gap 27 (5-15) Blood Urea Nitrogen 19 mg/dL (9-23) Creatinine 1.95 mg/dL (0.550-1.02) Glomerular Filtration Rate Calc 26 mL/min (>90) BUN/Creatinine Ratio 9.7 (10.0-20.0) Serum Glucose 562 mg/dL (74-106) Calcium Level 6.5 mg/dL (8.7-10.4) Magnesium Level 1.9 mg/dL (1.6-2.6) Total Bilirubin 0.2 mg/dL (0.2-1.0) Aspartate Amino Transferase (AST) 993 U/L (<34) Alanine Aminotransferase (ALT) 625 U/L (7-40) Alkaline Phosphatase 105 U/L (46-116) Troponin I High Sensitivity 2500 ng/L (</=34) Total Protein 2.5 g/dL (5.7-8.2) Albumin 1.5 g/dL (3.2-4.8) POC Glucose 443 mg/dl (70-106) Test 11/13/24 04:13 11/11/24 13:45 Activated Partial Thromboplast Time 68.1 SEC (24.5-34.5) Erythrocyte Sedimentation Rate 52 mm/hr (0-20) Lactic Acid Level 1.8 mmol/L (0.4-2.0) C-Reactive Protein High Sensitivity 1.85 mg/dL (<1.0) B-Type Natriuretic Peptide 186.39 pg/mL (0-100) Other Laboratory Tests 11/13/24 15:10 11/13/24 09:10 Brief Hx & Hospital Course: Patient is a 79-year-old female with past medical history of type 2 diabetes, PAD with recent left femoral endarterectomy who presented due to persistent pain in her left lower extremity. Despite having undergone a recent procedure, patient continues to note pain and presented from her SN[facility]. Patient was admitted and vascular surgery was consulted. Vascular surgery recommended undergoing lower extremity angiogram for attempt to perform a angioplasty of the distal arteries. Patient underwent the procedure with successful angioplasty of the distal arteries. Subsequently after procedure, patient was noted to be hypotensive. Patient was started on pressors and stat CBC and CT abdomen pelvis was done. Imaging had shown a large retroperitoneal bleed. I had discussed these findings directly with the radiologist at the time of the report. I subsequently contacted vascular surgeon Dr. Leyva who noted he was aware of these findings. Patient was taken emergently to Emergency Room Specialist for control of the bleeding. Patient underwent stent placement to the iliac artery which appeared to be the site of bleeding. Patient was subsequently noted to be on 4 pressors and transferred to ICU intubated and critical condition. Hemoglobin was noted to be 5. Patient was transfused with PRBCs and repeat hemoglobin was noted to be 9.6. A repeat hemoglobin 5 hours later was noted to be 8. By this point, patient was noted to be in multiorgan failure. Patient was noted to be in liver failure, acute renal failure, with elevated troponin greater than 2000 and ABG showing severe acidosis with pH of 6.9-7. Patient was given multiple boluses of IV fluids and repeat hemoglobin later in the day was noted to be 4.6. Patient appeared to be in DIC with worsening multiorgan failure. ABG showed persistent acidosis despite bicarbonate drip and multiple pushes of amps of bicarb. Family was contacted throughout the patient's hospital course and updated on critical condition. Discussions were held with Kadie, the patient's nzzymcei-ef-ats who is the POA and her Woody the patient's son. Kadie and Woody were updated over the phone as they noted they were not in town as they were on a cruise. Venkat, the other patient's son was also updated and able to come to bedside. Patient's hospital course was noted to be extremely poor. Patient's blood pressure continued to decline through the day and downtrend. By the time her hemoglobin had returned 4.6, patient had worsening multiorgan failure, was noted to be in DIC I discussed possible interventions with Dr. Leyva. Patient's prognosis was extremely poor and additional interventions at this time were agreed to be futile. Family was updated on patient's deteriorating status. They initially requested the patient remain full code. Patient ultimately underwent cardiac arrest and had ROSC about 10 minutes afterwards. The patient subsequently arrested again at that time which the family was contacted. At that point, resuscitation efforts were agreed to be discontinued. Patient subsequently at 1922. Condition at Discharge: Poor Final Diagnosis/Problems List Critical Limb Ischemia Secondary Diagnosis: PAD Type 2 Diabetes Discharge Disposition: at Hospital Discharge Statement: "Patient was advised to return to the ER or call 911 if any headaches, dizziness, shortness of breath, chest pain, abdominal pain, bleeding, fevers, or worsening of medical condition. Patient was counseled about treatment plan, medications, possible side effects, patientverbalized understanding. All questions were answered to the best of my ability. This discharge took greater then 30 minutes in planning, reviewing documentation, counseling the patient, and discussing with other team members." ASSESSMENT ASSESSMENT Assessment Left leg critical limb ischemia KANA LAWRENCE DO Nov 13, 2024 20:22
[2024-11-13] MEDS ORDERED: EPINEPHrine HCL 1 MG/10 ML SYRG IV ONE (20:41)
--- NOTE | 2024-11-14 02:54 | RESUS ---
CODE BLUE ASSESSSMENT History of Events History of Events: Patient became bradycardic and palbable pulse was lost Initial Information Date: Nov 13, 2024 Time: 18:56 Location of Arrest: ICU ([place]) Arrest Witnessed: Yes CPR started initial time: 18:56 CPR started by whom: Hospital Staff Last seen well: 1854 Pre-Hospital Care: ACLS Type of arrest: Cardiac, Adult, Witnessed Spontaneous Respirations: No Pulse Present: No Monitoring: ECG, Pulse Oximetry, Telemetry Crash Cart Opened and Supplies: Yes Airway Ventilation Breathing at Onset: Assisted O2 Sat by Pulse Oximetry: 87 Oxygen Delivery Method: Mechanical Ventilator Artificial Ventilation: Bag/Endo tube Intubation Size: 7.0 cuffed Intubated by: Already intubated before code Intubated orally: Yes Tube secured at: 22 (cm @lip) Suctioning (Oral/Tracheal): Yes (@ lip) Circulation Circulation #1: Time: 18:56 Pulse Rate (adult): 0 Blood Pressure Systolic: 0 Blood Pressure Diastolic: 0 Circulation Comment: CPR Started Circulation #2: Time: 18:58 Pulse Rate (adult): 0 Circulation Comment: asystole Circulation #3: Time: 19:00 Pulse Rate (adult): 0 Circulation Comment: asystole Circulation #4: Time: 19:03 Pulse Rate (adult): 81 Circulation Comment: PEA Circulation #5: Time: 19:05 Pulse Rate (adult): 87 Blood Pressure Systolic: 56 Blood Pressure Diastolic: 37 Circulation Comment: Rosc Circulation #6: Time: 19:13 Pulse Rate (adult): 0 Circulation Comment: Patient did not maintain ROSC Circulation #7: Time: 19:15 Pulse Rate (adult): 0 Temperature (Fahrenheit): 97.5 Circulation Comment: pulse check -asystole Circulation #8: Time: 19:17 Pulse Rate (adult): 0 Circulation Comment: pulse check -asystole Circulation #9: Time: 19:19 Pulse Rate (adult): 0 Circulation Comment: pulse check -asystole Circulation #10: Time: 19:21 Pulse Rate (adult): 0 Circulation Comment: pulse check -asystole Circulation #11: Time: 19:23 Pulse Rate (adult): 0 Circulation Comment: pulse check -asystole Circulation #12: Time: 19:25 Circulation Comment: pulse check -asystole TOD 1924 Procedure - IV Procedure - IV #1: IV Side: Right IV Location: Internal Jugular (Placed in ED) IV Catheter Type: Triple Lumen Cath Procedure - IV #2: IV Side: Right Medications & Response Medications and Responses #1: Medication Time: 18:56 ADULT Medications Given ADULT: Epinephrine 1 mg, Sodium Bacarbinate 50 meq Route of Administration: IV EKG Rhythm: Asystole Medications and Responses #2: Medication Time: 18:59 ADULT Medications Given ADULT: Epinephrine 1 mg, Calcium Chloride 10 mL Route of Administration: IV EKG Rhythm: Asystole Medications and Responses #3: Medication Time: 19:00 ADULT Medications Given ADULT: Sodium Bacarbinate 50 meq Medications and Responses #4: Medication Time: 19:01 ADULT Medications Given ADULT: Epinephrine 1 mg, Calcium Chloride 10 mL Route of Administration: IV EKG Rhythm: Asystole Medications and Responses #5: Medication Time: 19:04 ADULT Medications Given ADULT: Epinephrine 1 mg, Sodium Bacarbinate 50 meq Medications and Responses #6: Medication Time: 19:13 ADULT Medications Given ADULT: Epinephrine 1 mg, Sodium Bacarbinate 50 meq EKG Rhythm: Asystole Medications and Responses #7: Medication Time: 19:16 ADULT Medications Given ADULT: Epinephrine 1 mg EKG Rhythm: Asystole Medications and Responses #8: Medication Time: 19:19 ADULT Medications Given ADULT: Epinephrine 1 mg, Sodium Bacarbinate 50 meq Medications and Responses #9: Medication Time: 19:22 ADULT Medications Given ADULT: Epinephrine 1 mg EKG Rhythm: Asystole Medications and Responses #10: Medication Time: 19:25 ADULT Medications Given ADULT: Epinephrine 1 mg Route of Administration: IV EKG Rhythm: Asystole Respiratory Rate: 0 O2 Sat by Pulse Oximetry: 0 Procedure - Whalen Catheter Urinary Catheter Type/Location: 2-way Urethral Urine Color: Yellow Whalen Catheter Secured: Yes Comment: inserted previously before code Nurses Notes Baxter Coma Scale Eye Opening: None (1) Baxter Coma Scale Verbal: None (1) Rico Coma Scale Motor: None (1) [place] Total: 3 Pupil Reaction: Non Reactive EKG Rhythm: Asystole Time Code Ended Post Arrest Status: Outcome of code: Unsuccessful Patient pronounced by: Dr. Mario Mahajan/Dr. Simms Time patient pronounced: 19:25 Family notified: Yes Attending called: Yes Code Team Present: Dr. Mario Mahajan Resident Dr. Simms Hospitalist RT- Lauren Jacques [employer] MA[employer]EMENT CONSULTANT charge Riccardo Raman RN ICU Cathy Petty RN ICU Gina Appiah RN ICU Kizzy Barraza RN ICU critical care time 38 mins Post Resuscitation Neurologica Pupil Size: 6 Comment: Non reactive, pinpoint ROSC Time of ROSC: 19:05 Pt Meets Criteria for Therapeu: No Therapeutic Hyperthermia Start: No (Did not maintain ROSC) Date of Service: Nov 14, 2024 Billing Provider: GARFIELD SIMMS MD Common Visit Codes: [id number] CARE 30-74 MIN VIELKA GEORGE Nov 14, 2024 02:54 GARFIELD SIMMS MD Nov 15, 2024 19:12
[2024-11-14] MEDS ORDERED: BUMETANIDE 1mg/4ml VIAL (0.25mg/ml) IV SCH (06:00)
--- NOTE | 2024-11-15 07:44 | ECG ---
[facility] Test Date: 2024-11-13 Test Time: 10:10:01 Pat Name: PREETHI GARLAND Department: icu Room: [address] [place] [address] A Gender: F [employer] Developer: rogelio : 1945 Requested By: KANA LAWRENCE Order Number: [id number] Reading MD: Isidro Vazquez Measurements Intervals [place] Rate: 137 P: 0 DE: 0 QRS: 18 QRSD: 82 T: 2 QT: 285 QTc: 431 Interpretive Statements Atrial fibrillation Inferior infarct, old Electronically Signed On 11-15-2024 21:11:40 PDT by Isidro Vazquez Please click the below link to view image of tracing.
== END 2024-11-13 19:25 | DRG 270 ==
LOC: EDBD 13:16 → ER 13:16 → OVERFLOW 17:09 → TELE-WESTW 21:54 → CATH ICU 11-12 19:58 → ICU WEST 11-13 06:43
PROVIDERS: ADMIT Student in an Organized Health Care Education/Training Program; ATTEND Student in an Organized Health Care Education/Training Program
PROC: 047D3DZ Dilation of Left Common Iliac Artery with Intraluminal Device, Percutaneous Approach (ICD-10-PCS; principal; 2024-11-12)
PROC: 047J3DZ Dilation of Left External Iliac Artery with Intraluminal Device, Percutaneous Approach (ICD-10-PCS; 2024-11-12)
PROC: 047L3DZ Dilation of Left Femoral Artery with Intraluminal Device, Percutaneous Approach (ICD-10-PCS; 2024-11-12)
PROC: 5A1945Z Respiratory Ventilation, 24-96 Consecutive Hours (ICD-10-PCS; 2024-11-12)
PROC: 0BH17EZ Insertion of Endotracheal Airway into Trachea, Via Natural or Artificial Opening (ICD-10-PCS; 2024-11-12)
PROC: 04CL3ZZ Extirpation of Matter from Left Femoral Artery, Percutaneous Approach (ICD-10-PCS; 2024-11-12)
PROC: B41G1ZZ Fluoroscopy of Left Lower Extremity Arteries using Low Osmolar Contrast (ICD-10-PCS; 2024-11-12)
PROC: B41F1ZZ Fluoroscopy of Right Lower Extremity Arteries using Low Osmolar Contrast (ICD-10-PCS; 2024-11-12)
PROC: 30233N1 Transfusion of Nonautologous Red Blood Cells into Peripheral Vein, Percutaneous Approach (ICD-10-PCS; 2024-11-13)
PROC: 30233K1 Transfusion of Nonautologous Frozen Plasma into Peripheral Vein, Percutaneous Approach (ICD-10-PCS; 2024-11-13)
PROC: 5A12012 Performance of Cardiac Output, Single, Manual (ICD-10-PCS; 2024-11-13)
DX: E11.51 Type 2 diabetes mellitus with diabetic peripheral angiopathy without gangrene (principal); D65 Disseminated intravascular coagulation [defibrination syndrome]; K68.3 Retroperitoneal hematoma; S35.511A Injury of right iliac artery, initial encounter; K72.00 Acute and subacute hepatic failure without coma; N17.0 Acute kidney failure with tubular necrosis; Z99.11 Dependence on respirator [ventilator] status; E87.20 Acidosis, unspecified; L03.116 Cellulitis of left lower limb; D62 Acute posthemorrhagic anemia; T80.818A Extravasation of other vesicant agent, initial encounter; I95.81 Postprocedural hypotension; I46.9 Cardiac arrest, cause unspecified; E11.621 Type 2 diabetes mellitus with foot ulcer; E11.622 Type 2 diabetes mellitus with other skin ulcer; I10 Essential (primary) hypertension; J44.9 Chronic obstructive pulmonary disease, unspecified; E66.9 Obesity, unspecified; Z68.30 Body mass index [BMI] 30.0-30.9, adult; L97.529 Non-pressure chronic ulcer of other part of left foot with unspecified severity; I25.10 Atherosclerotic heart disease of native coronary artery without angina pectoris; F17.200 Nicotine dependence, unspecified, uncomplicated; R79.89 Other specified abnormal findings of blood chemistry; E86.1 Hypovolemia; K44.9 Diaphragmatic hernia without obstruction or gangrene; Z96.659 Presence of unspecified artificial knee joint; Z79.02 Long term (current) use of antithrombotics/antiplatelets; Z86.73 Personal history of transient ischemic attack (TIA), and cerebral infarction without residual deficits; Z82.49 Family history of ischemic heart disease and other diseases of the circulatory system; Z82.3 Family history of stroke; Z80.6 Family history of leukemia; Z88.0 Allergy status to penicillin; Y92.89 Other specified places as the place of occurrence of the external cause
CPT/HCPCS: 36415; 36600; 37221; 37226; 71045; 74178; 80053; 82805; 82962; 83605; 83735; 83880; 84484; 85007; 85025; 85027; 85610; 85652; 85730; 86141; 86850; 86900; 86901; 86920; 87081; 92950; 93005; 93926; 93971; 94002; 94003; 96365; 96375; 99152; 99153; 99291; C1769; C1894; G0378; J0171; J1815; J2003; J2250; J2405; J2470; J3490; J7060; Q9967